=== PATIENT | male | born 1960 | race African-American/Black ===

== ENCOUNTER 2018-11-05 07:54 | Emergency (ER) | payer MEDICARE, MEDICAID ==
--- NOTE | 2018-11-05 09:19 | ER Document Report ---
Addendum entered and electronically signed by SON GLEASON PA-C 11/05/18 16:40: Course - Re-evaluation Re-evalutation: 11/05/18 16:39 Patient was signing up for discharge and when he sat up he became acutely short of breath and started panicking. I went to the room to assess him. And upon auscultation it did appear that he did have reduced air movement and some end expiratory wheezing. He has no known history of asthma but says a strong family history of such. I will give him a DuoNeb and see how he responds. - Vital Signs Vital signs: Temp Pulse Resp BP Pulse Ox 97.5 F 120 H 25 H 149/97 H 98 11/05/18 07:58 11/05/18 07:58 11/05/18 16:00 11/05/18 14:01 11/05/18 16:00 - Laboratory Result Diagrams: 11/05/18 10:08 11/05/18 10:08 Laboratory results interpreted by me: 11/05/18 11/05/18 10:08 10:08 RDW 18.9 H Creatinine 1.28 H Est GFR (Non-Af Amer) 58 L Glucose 117 H ALT 101 H Total Protein 6.2 L Addendum entered and electronically signed by SON GLEASON PA-C 11/05/18 15:25: Discharge - Discharge Clinical Impression: Flank pain, Kidney stone on left side, Throat tightness Chest pain Qualifiers: Chest pain type: unspecified Qualified Code(s): R07.9 - Chest pain, unspecified Condition: Good Disposition: HOME, SELF-CARE Additional Instructions: You are seen in the emergency department this afternoon for unspecified chest pain, throat tightness, and flank pain. Chest pain workup was completely negative for any cardiac concerns. Also, CTA of your chest did not show any evidence of a pulmonary embolism. We are still giving you a referral to cardiol binta and I would like you to follow-up with cardiology in the next 1-2 weeks. Also, it is unclear why you are having the throat tightness but it could be related to anxiety since you are having chest pain associated with it. Also, your flank and abdominal pain is most likely related to kidney stone that was identified on CT. You also may have passed a very small stone that did not get picked up. You can take Motrin 600 mg every 6 hours as needed and/or Tylenol 1000 mg every 6 hours for pain. If you develop severe unremitting chest pain, you start getting sweats or nausea with the chest pain, have severe intractable abdominal pain, pass out, or have any other concerns please merely return to the emergency department. Referrals: LIANG ESCAMILLA MD [ACTIVE STAFF] - Follow up as needed [facility] [Provider Group] - Follow up as needed KRYSTAL BARRETT MD [ACTIVE STAFF] - Follow up as needed Original Note: ED General - General Chief Complaint: Flank Pain Stated Complaint: SHORTNESS OF BREATH Time Seen by Provider: 11/05/18 08:26 Notes: 58-year-old male with history of a spinal injury causing bladder dysfunction with a bladder pump presents to the emergency department for shortness of breath described as "my throat is restricted "and left-sided flank pain that radiates around to his left abdomen and epigastric area. Patient denies shortness of breath but describes it as a tightness, denies chest pain, complains of abdominal pain, complains of night sweats, has abdominal spasms at baseline. Patient denies any recent illness, denies dizziness or lightheadedness, head ache, neck stiffness, rhinorrhea, new weakness, numbness or paresthesias, does complain of dark urine even though he is drinking a lot of water. No other complaints - HPI Patient complains to provider of: flank pain and "throat is restricted" - Related Data Allergies/Adverse Reactions: No Known Allergies Allergy (Verified 11/05/18 08:27) Past Medical History - Social History Smoking Status: Former Smoker Family History: None Patient has suicidal ideation: No Patient has homicidal ideation: No - Past Medical History Cardiac Medical History: Reports: Hx Hypercholesterolemia, Hx Hypertension Endocrine Medical History: Reports: Hx Diabetes Mellitus Type 2 Renal/ Medical History: Denies: Hx Peritoneal Dialysis Review of Systems - Review of Systems Constitutional: See HPI EENT: No symptoms reported Cardiovascular: See HPI Respiratory: See HPI Gastrointestinal: See HPI Genitourinary: See HPI Male Genitourinary: No symptoms reported Musculoskeletal: No symptoms reported Skin: No symptoms reported Hematologic/Lymphatic: No symptoms reported Neurological/Psychological: See HPI Physical Exam - Vital signs Vitals: Temp Pulse Resp BP Pulse Ox 97.5 F 120 H 16 138/83 H 95 11/05/18 07:58 11/05/18 07:58 11/05/18 07:58 11/05/18 07:58 11/05/18 07:58 - Notes Notes: PHYSICAL EXAMINATION: Reviewed vital signs and charting by RN GENERAL: Alert, interacts well. No acute distress. HEAD: Normocephalic, atraumatic. EYES: Pupils equal and round. Extraocular movements intact. ENT: Oral mucosa moist, tongue midline. NECK: Full range of motion. Supple. Trachea midline. LUNGS: Clear to auscultation bilaterally, no wheezes, rales, or rhonchi. No respiratory distress. HEART: Regular rate and rhythm. No murmur ABDOMEN: soft, non-tender. Non-distended. Bowel sounds present. no McBurney's point tenderness, no Love sign. EXTREMITIES: Moves all 4 extremities spontaneously. No edema, No cyanosis. Normal distal neurovascular exam BACK: L CVAT NEUROLOGIC: Oriented and appropriate. Normal speech. PSYCH: Normal affect, normal mood. SKIN: Warm, dry, normal turgor. No rashes or lesions noted. Course - Re-evaluation Re-evalutation: 11/05/18 11:30 CT done as patient said he had a history of kidney stone identified on MRI from previous injury. It did show a 3 mm nonobstructing stone in the left side which correlates with his pain. Nurse reported that he was having chest pain and it felt like it whenever his throat was closing up. On inspection there was no ev idence of obstruction or laryngeal edema. Nurse placed oxygen on him and patient states he felt much better after it was placed. He feels that he was having a panic attack. In the chest pain occurred when he was having the tight chest and it felt like his heart was "racing like I was running ". Initial troponin was slightly elevated and repeat troponin is ordered for 1300. 11/05/18 13:57 Delta troponin did peak and came down slightly. Discussed with Dr. Esdras Chaudhary. Because patient is tachycardic although patient states he always has a fast heart rate, with the slightly elevated troponin and patient's feeling of shortness of breath we will proceed with a CTA chest with IV contrast to ensure patient does not have a pulmonary embolism. 11/05/18 15:13 CTA chest negative for pulmonary embolism. Unclear why patient has a slightly elevated troponin, could be related to persistent and long-standing tachycardia. Patient has a negative chest pain workup. Patient is at this time will be referred to cardiology and is deemed stable and safe to discharge home. - Vital Signs Vital signs: Temp Pulse Resp BP Pulse Ox 97.5 F 120 H 17 160/97 H 96 11/05/18 07:58 11/05/18 07:58 11/05/18 14:00 11/05/18 13:30 11/05/18 14:00 - Laboratory Result Diagrams: 11/05/18 10:08 11/05/18 10:08 Laboratory results interpreted by me: 11/05/18 11/05/18 10:08 10:08 RDW 18.9 H Creatinine 1.28 H Est GFR (Non-Af Amer) 58 L Glucose 117 H ALT 101 H Total Protein 6.2 L Discharge - Discharge Clinical Impression: Flank pain, Kidney stone on left side, Throat tightness Chest pain Qualifiers: Chest pain type: unspecified Qualified Code(s): R07.9 - Chest pain, unspecified Condition: Good Disposition: HOME, SELF-CARE Additional Instructions: You are seen in the emergency department this afternoon for unspecified chest pain, throat tightness, and flank pain. Chest pain workup was completely negative for any cardiac concerns. Also, CTA of your chest did not show any evidence of a pulmonary embolism. We are still giving you a referral to cardiology and I would like you to follow-up with cardiology in the next 1-2 weeks. Also, it is unclear why you are having the throat tightness but it could be related to anxiety since you are having chest pain associated with it. Also, your flank and abdominal pain is most likely related to kidney stone that was identified on CT. You also may have passed a very small stone that did not get picked up. You can take Motrin 600 mg every 6 hours as needed and/or Tylenol 1000 mg every 6 hours for pain. If you develop severe unremitting chest pain, you start getting sweats or nausea with the chest pain, have severe intractable abdominal pain, pass out, or have any other concerns please merely return to the emergency department. Referrals: LIANG ESCAMILLA MD [ACTIVE STAFF] - Follow up as needed
--- NOTE | 2018-11-05 09:52 | RADIOLOGY REPORT (SQ) ---
EXAM DESCRIPTION: CT ABD/PELVIS NO ORAL OR IV COMPLETED DATE/TIME: 11/05/2018 9:33 am REASON FOR STUDY: L flank pain COMPARISON: None. TECHNIQUE: CT scan of the abdomen and pelvis performed without intravenous or oral contrast. Images reviewed with lung, soft tissue, and bone windows. Reconstructed coronal and sagittal MPR images revi ewed. All images stored on PACS. All CT scanners at this facility use dose modulation, iterative reconstruction, and/or weight based d osing when appropriate to reduce radiation dose to as low as reasonably achievable (ALARA). [facility]: Dose Right [facility]: CareDose [facility]: Dose Right [facility]: Teradose 4D [facility]: [email or web address] RADIATION DOSE: CT Rad equipment meets quality standard of care and radiation dose reduction techniq ues were employed. CTDIvol: 6.4 mGy. DLP: 336 mGy-cm.mGy. LIMITATIONS: None. FINDINGS: LOWER CHEST: No significant findings. No nodules or infiltrates. NON-CONTRASTED LIVER, SPLEEN, ADRENALS: Evaluation limited by lack of IV contrast. No identified sign ificant masses. PANCREAS: No masses. No peripancreatic inflammatory changes. GALLBLADDER: No identified stones by CT criteria. No inflammatory changes to suggest cholecystitis. RIGHT KIDNEY AND URETER: No suspicious masses. Assessment limited by lack of IV contrast. No signif icant calcifications. No hydronephrosis or hydroureter. LEFT KIDNEY AND URETER: No suspicious masses. Assessment limited by lack of IV contrast. 3 mm stone lower pole. No hydronephrosis or hydroureter. AORTA AND RETROPERITONEUM: No aneurysm. No retroperitoneal masses or adenopathy. BOWEL AND PERITONEAL CAVITY: No obvious masses or inflammatory changes. No free fluid. APPENDIX: Normal. PELVIS, BLADDER, AND ABDOMINAL WALL:No abnormal masses. No free fluid. Bladder normal. BONES: No significant findings. OTHER: No other significant finding. IMPRESSION: 3 mm nonobstructing left renal calculus. COMMENT: Quality ID # [id number]: Final reports with documentation of one or more dose reduction techniques (e.g., Automated exposure control, adjustment of the mA and/or kV according to patient size, use of iterative reconstruction technique) TECHNICAL DOCUMENTATION: JOB ID: [id number] [employer]- All Rights Reserved Reading location - IP/workstation name: [email or web address]
[2018-11-05 10:24] LABS: ABSOLUTE EOSINOPHILS # (AUTO) 0.2 10^3/uL (0.0-0.6); ABSOLUTE LYMPHOCYTES (AUTO) 1.7 10^3/uL (0.5-4.7); ABSOLUTE MONOCYTES (AUTO) 0.3 10^3/uL (0.1-1.4); BASOPHILS % (AUTO) 0.4 % (0-2); EOSINOPHILS % (AUTO) 3.3 % (0-6); HEMATOCRIT 44.6 % (37.9-51.0); HEMOGLOBIN 14.5 g/dL (13.5-17.0); LYMPHOCYTES % (AUTO) 32.8 % (13-45); MEAN CORPUSCULAR HGB CONC 32.4 g/dL (32.0-36.0); MEAN CORPUSCULAR VOLUME 83 fl (80-97); MONOCYTES % (AUTO) 6.7 % (3-13); PLATELET COUNT 221 10^3/uL (150-450); RED BLOOD COUNT 5.35 10^6/uL (4.35-5.55); RED CELL DISTRIBUTION WIDTH 18.9 % (11.5-14.0); SEGMENTED NEUTROPHILS % (AUTO) 56.8 % (42-78); TOTAL CELLS COUNTED % (AUTO) 100 %; WHITE BLOOD COUNT 5.2 10^3/uL (4.0-10.5)
[2018-11-05 10:37] LABS: ALANINE AMINOTRANSFERASE 101 U/L (21-72); ALBUMIN 3.8 g/dL (3.5-5.0); ALKALINE PHOSPHATASE 77 U/L (38-126); ANION GAP 7 (5-19); ASPARTATE AMINO TRANSFERASE 35 U/L (17-59); BILIRUBIN,DIRECT 0.3 mg/dL (0.0-0.4); BLOOD UREA NITROGEN 15 mg/dL (7-20); CALCIUM 8.9 mg/dL (8.4-10.2); CARBON DIOXIDE 26 mmol/L (22-30); CHLORIDE 107 mmol/L (98-107); GLUCOSE 117 mg/dL (75-110); POTASSIUM 4.6 mmol/L (3.6-5.0); SODIUM 140.2 mmol/L (137-145); TOTAL PROTEIN 6.2 g/dL (6.3-8.2)
--- NOTE | 2018-11-05 13:53 | ER Document Report ---
Doctor's Note Notes: I personally and independently obtained patient history and examined the patient in conjunction with the APC and agree with the assessment, treatment plan and disposition of the patient as recorded by the APC, and have reviewed the APC's note. HISTORY OF PRESENT ILLNESS: Patient is a 58-year-old male that presents to the emergency department for chief complaint of flank pain, shortness of breath, and sore throat. ROS: Constitutional: Negative for fever. Cardiovascular: Negative for chest pain. Respiratory: Positive for shortness of breath Gastrointestinal: Negative for vomiting, positive for right flank pain Musculoskeletal: Negative for arm, leg or back pain Skin: Negative for rash. Neurological: Negative for weakness or numbness. Other than noted above, the 12 point review of systems was reviewed with the patient and were negative, all pertinent findings are included in the HPI. PHYSICAL EXAMINATION: Vital signs reviewed, nursing noted reviewed. GENERAL: Well-appearing, well-nourished and in no acute distress. HEAD: Atraumatic, normocephalic. EYES: Eyes appear normal, conjunctiva are normal. ENT: nares patent, oropharynx clear without exudates. Moist mucous membranes. NECK: Normal range of motion, supple without lymphadenopathy LUNGS: Breath sounds clear to auscultation bilaterally and equal. No wheezes rales or rhonchi. HEART: Heart rate tachycardic, regular rhythm ABDOMEN: Soft, nontender, normoactive bowel sounds. No rebound, guarding, or rigidity. No masses appreciated. EXTREMITIES: Nontender, good range of motion, no pitting or edema. NEUROLOGICAL: No new focal neurological deficits, patient has baseline lower extremity weakness, from prior spinal cord injury, this is unchanged. PSYCH: Normal mood, normal affect. SKIN: Warm, Dry, normal turgor, no rashes or lesions noted on exposed skin MEDICAL DECISION MAKING: Patient seen and examined, vital signs reviewed, patient appeared well my exam, his lungs were clear, throat appeared clear as well, did not have any significant CVA tenderness. Workup was reviewed, decided to add CT angiogram of the chest, secondary to the patient's shortness of breath, and tachycardia, this was negative for PE, pending urine testing, his repeat troponin, down trended, and did not reach threshold of NSTEMI, is not complaining of chest pain at this time, would recommend outpatient follow-up for stress testing. Discussed follow-up with the patient which she agreed to. Patient was also complaining of occasional difficulty swallowing at times, not complaining of that at this time, advised him to follow-up with ENT regarding this. \ Please review detail APC documentation. *Note is created using voice recognition software and may contain spelling, syntax or grammatical errors. Laboratory 11/05/18 11/05/18 11/05/18 10:08 10:08 10:08 WBC 5.2 RBC 5.35 Hgb 14.5 Hct 44.6 MCV 83 MCH 27.0 MCHC 32.4 RDW 18.9 H Plt Count 221 Seg Neutrophils % 56.8 Lymphocytes % 32.8 Monocytes % 6.7 Eosinophils % 3.3 Basophils % 0.4 Absolute Neutrophils 3.0 Absolute Lymphocytes 1.7 Absolute Monocytes 0.3 Absolute Eosinophils 0.2 Absolute Basophils 0.0 Sodium 140.2 Potassium 4.6 Chloride 107 Carbon Dioxide 26 Anion Gap 7 BUN 15 Creatinine 1.28 H Est GFR ( Amer) > 60 Est GFR (Non-Af Amer) 58 L Glucose 117 H Calcium 8.9 Total Bilirubin 1.0 Direct Bilirubin 0.3 Neonat Total Bilirubin Not Reportable Neonat Direct Bilirubin Not Reportable Neonat Indirect Bili Not Reportable AST 35 ALT 101 H Alkaline Phosphatase 77 Troponin I 0.042 Total Protein 6.2 L Albumin 3.8 TSH 11/05/18 11/05/18 10:08 12:58 WBC RBC Hgb Hct MCV MCH MCHC RDW Plt Count Seg Neutrophils % Lymphocytes % Monocytes % Eosinophils % Basophils % Absolute Neutrophils Absolute Lymphocytes Absolute Monocytes Absolute Eosinophils Absolute Basophils Sodium Potassium Chloride Carbon Dioxide Anion Gap BUN Creatinine Est GFR ( Amer) Est GFR (Non-Af Amer) Glucose Calcium Total Bilirubin Direct Bilirubin Neonat Total Bilirubin Neonat Direct Bilirubin Neonat Indirect Bili AST ALT Alkaline Phosphatase Troponin I 0.039 Total Protein Albumin TSH 1.48 Abdomen/Pelvis CT 11/05/18 09:14 IMPRESSION: 3 mm nonobstructing left renal calculus. Chest/Abdomen CTA 11/05/18 13:53 IMPRESSION: There is no evidence of pulmonary emboli. There are pleural effusions as described. There is mild compressive atelectasis in the lower lobes.
[2018-11-05] MEDS ORDERED: NORMAL SALINE 1000 ML 1,000 ML IV ONE (13:57)
--- NOTE | 2018-11-05 15:13 | RADIOLOGY REPORT (SQ) ---
EXAM DESCRIPTION: CTA CHEST COMPLETED DATE/TIME: 11/05/2018 2:23 pm REASON FOR STUDY: chest pain, tachycardia COMPARISON: None. TECHNIQUE: CT scan of the chest performed using helical scanning technique with dynamic intravenous contrast injection. Images reviewed with lung, soft tissue and bone windows. Reconstructed coronal and sagittal MPR images reviewed. Additional 3 dimensional post-processing performed to develop Maximal Intensity Projection images (DC P). All images stored on PACS. All CT scanners at this facility use dose modulation, iterative reconstruction, and/or weight based d osing when appropriate to reduce radiation dose to as low as reasonably achievable (ALARA). [facility]: Dose Right [facility]: CareDose [facility]: Dose Right [facility]: Teradose 4D [facility]: [employer] CONTRAST TYPE AND DOSE: contrast/concentration: Isovue 350.00 mg/ml; Total Contrast Delivered: 74.0 ml; Total Saline Delivered: 110.0 ml Contrast bolus optimized for the pulmonary arteries. Not diagnostic for the aorta. RENAL FUNCTION: BUN 15 creatinine 1.28 RADIATION DOSE: CT Rad equipment meets quality standard of care and radiation dose reduction [employer] ues were employed. CTDIvol: 14.9 - 39.7 mGy. DLP: 578 mGy-cm. . LIMITATIONS: None. FINDINGS: LUNGS AND PLEURA: Small right pleural effusion. Minimal left pleural effusion. Mild asso ciated airspace disease in the lower lobes. AORTA AND GREAT VESSELS: No aneurysm. Contrast bolus not optimized for the aorta. HEART: No pericardial effusion. No significant coronary artery calcifications. PULMONARY ARTERIES: No emboli visualized in the main pulmonary arteries or the segmental branches. HILAR AND MEDIASTINAL STRUCTURES: No identified masses or abnormal nodes. HARDWARE: None in the chest. UPPER ABDOMEN: See separate report of the CT of the abdomen. THYROID AND OTHER SOFT TISSUES: No masses. No adenopathy. BONES: No acute or significant finding. 3D MIPS: Confirm above findings. OTHER: No other significant finding. IMPRESSION: There is no evidence of pulmonary emboli. There are pleural effusions as described. Th ere is mild compressive atelectasis in the lower lobes. COMMENT: Quality ID # [id number]: Final reports with documentation of one or more dose reduction techniques (e.g., Automated exposure control, adjustment of the mA and/or kV according to patient size, use of iterative reconstruction technique) TECHNICAL DOCUMENTATION: JOB ID: [id number] [employer]- All Rights Reserved Reading location - IP/workstation name: [email or web address]
[2018-11-05] MEDS ORDERED: IPRATROPIUM/ALBUTEROL 0.5-2.5 MG/3 ML AMPUL NEB ONE (16:40)
[2018-11-05 16:41] VITALS: BP 138/103
[2018-11-05] MEDS ORDERED: ALBUTEROL SULFATE HFA (90 MCG/PUFF) 8 GM MDI (1 MDI/ER DISP) IH ONE (17:18)
--- NOTE | 2018-11-05 23:55 | EKG REPORT ---
SEVERITY:- ABNORMAL ECG - SINUS TACHYCARDIA PROBABLE LEFT ATRIAL ABNORMALITY LEFT AXIS DEVIATION LEFT VENTRICULAR HYPERTROPHY : Confirmed by: Sherine Johns 05-Nov-2018 23:54:57
== END 2018-11-05 17:42 | disposition home or self-care (01) ==
LOC: ER 07:54
DX: N20.0 Calculus of kidney (principal); J02.9 Acute pharyngitis, unspecified; R09.89 Other specified symptoms and signs involving the circulatory and respiratory systems; R10.9 Unspecified abdominal pain; R06.02 Shortness of breath; R06.2 Wheezing; R07.9 Chest pain, unspecified
CPT/HCPCS: 93005; 94640; 99284; 96360; 36415; 84443; 85025; 80053; 84484; 71275; 74176; 93010; J7030; J3490; A9270; J7620

== ENCOUNTER 2019-02-16 08:05 | Emergency (ER) | payer MEDICARE, MEDICAID ==
--- NOTE | 2019-02-16 08:14 | ER Document Report ---
HPI - HPI Patient complains to provider of: right testicular pain/swelling, uti Time Seen by Provider: 02/16/19 08:13 Onset/Duration: Gradual Severity: Moderate Context: 59 Yr old male pt with the listed pmh, here for intermittent left-sided abdominal pain, right testicular pain/swelling, and dysuria for x 7 days. no trauma or injury. Patient is a diabetic however states that sugars are well controlled. He does have a history of renal stones however has been asymptomatic from them. The patient is also wheelchair-bound secondary to a spinal cord injury at baseline. He states he is not sexually active secondary to this and has no concerns for STDs. normal bms. no other uti sx. no left sided testicular pain/swelling, penile dc/rash/lesions. denies hx of hernias. no abd surgeries unless otherwise noted. no recent abx or steroids. hasn't taken anything for sx. no hx of gerd, gb dz, pancreatitis, gi bleed, ulcers, ibs, or crohns. no hx of this before. no uri sx. no rash. pain not worse with eating. denies changes in color or caliber of stool. no other associated sx. - ROS Systems Reviewed and Negative: Yes All other systems reviewed and negative - to include 10, unless mentioned in the hpi Past Medical History - General Information source: Patient - Social History Smoking Status: Unknown if Ever Smoked Frequency of alcohol use: unknown Drug Abuse: Other - unknown Family History: None - Past Medical History Cardiac Medical History: Reports: Hx Hypercholesterolemia, Hx Hypertension Neurological Medical History: Reports: Other - paraplegia-pt wheel chair bound at baseline secondary to a spinal cord inju Endocrine Medical History: Reports: Hx Diabetes Mellitus Type 2 Renal/ Medical History: Reports: Hx Kidney Stones. Denies: Hx Peritoneal Dialysis Vertical Provider Document - CONSTITUTIONAL Notes: >>>> PHYSICAL_EXAM: GENERAL_APPEARANCE: well_nourished, alert, cooperative, no_acute_distress, no obvious_discomfort. Pleasant, middle aged black male, smiling, speaking in full sentences, easily sitting up, in no sign of pain or resp distress, nontoxic, pt in wheel chair. VITALS: reviewed, see vital signs table. HEAD: normocephalic. atraumatic. no leroy signs. no raccoon eyes. EYES: PERRL, EOMI, (-)scleral icterus. NOSE: no_nasal_discharge. MOUTH: (-)decreased moisture. THROAT: no_tonsilar_inflammation/hypertrophy/exudate. no lymphadenopathy NECK: supple, no_neck_tenderness, full rom. full strength. no meningeal signs. BACK: no_back_tenderness. CHEST_WALL: no_chest_tenderness. LUNGS: no_wheezing, (-)accessory muscle use, good air exchange bilateral. HEART: normal_rate, normal_rhythm,, ABDOMEN: normal_BS, soft, abdomen-diffuse, mild ttp of the luq and llq (- )guarding, (-)rebound, no distension or peritoneal signs. neg murphys. neg mcburneys. no cva tenderness GENITALS: no_testicular_tenderness/swelling on the left. the right testicle is diffusely swollen and ttp, no sign of abscess, no_urethral_discharge, no_inguinal_hernia, no_ulcers_or_lesions on the genitals, no_lacerations on the genitals, the pt is wearing a diaper, he is uncircumsized. there is some scant urine around the glans once the foreskin was retracted with mild odor. no sign of yeast infection, no phymosis or paraphymosis, penis and testicles otherwise wnl. exam chaperoned by ed nurse. pt consented to exam. exam without incident. exam is somewhat limited secondary to pt being a paraplegic. exam done with pt laying down. not able to assess for prehn or cremasteric reflex secondary to this. RECTAL: deferred EXTREMITIES: strength 5/5 in upper_extremities bilat, 0/5 strength in bilat lower extremities which is his baseline along which chronic unchanged atrophy of the bilat lower extremities, good pulses in all_extremities, no_edema, no_swelling\tenderness. full rom. gait not assessed as pt wheel chair bound at baseline brisk cap refill. 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 SKIN: warm, dry, good_color, n _rash. no grossly visible overlying skin changes to suggest trauma unless otherwise noted. NEURO: motor_intact, sensory_intact. cranial nerves 2-12 intact, MENTAL_STATUS: normal_affect, speech_clear, oriented_X_3, responds_appropriately to questions. - INFECTION CONTROL TRAVEL OUTSIDE OF THE [place] IN LAST 30 DAYS: No Course - Re-evaluation Re-evalutation: 02/16/19 08:44 Patient here for intermittent left-sided abdominal pain, right testicular pain/swelling, and dysuria for a week. no concerns for stds. he is a paraplegic and states he isn't sexually active. labs were notable for a mild leukocytosis, slight increase in creat which is now 1.3 from 1.28 a few months ago, and a uti. ucx pending. he responded well to fluids and rocephin here and his slight tachycardia and low grade fever resolved. testicular us w doppler done to r/o torsion just showed a large right hydrocele but was otherwise neg for anything acute per rad and reviewed by myself. ct stone survey done to r/o infected stone and that just showed a 3mm nonobstructing left renal stone and was otherwise neg for anything acute per rad and reviewed by myself. pt informed of his findings. advised to drink plenty of fluids. take the meds as prescribed. will dc with doxy. advised scrotal support. f/u with urology in 1-2 days. return for any worsening symptoms. advised to keep a close check on his sugars during an acute infection. vss. pt well appearing. non toxic. tolerating po. serial abd exams remain benign. 02/16/19 08:45 On reexam, pt improved with tx listed. remained stable. nontoxic. well appearing. pain controlled. tolerating po. requesting to go home. case discussed with ER Attending, Dr. soler, who directed and agrees with plan of care and advised no further workup indicated at this time and pt is stable for dc home with close f/u with urologist Documentation achieved through voice recording which my lead to some occasional accidental typographical errors. Extensive efforts have been made to proof read documentation to make sure these are the least as possible. 02/16/19 11:12 Category Date Time Status Accucheck (ED) NOW Care 02/16/19 09:27 Completed PCT AccuChek Documentation NOW Care 02/16/19 09:28 Active Vital Signs (ED) NOW Care 02/16/19 09:[address] ABD/PELVIS NO ORAL OR IV [CT] Stat Exams 02/16/19 09:30 Completed Testicular [U/S SCROTUM W/DOPPLER] [US] Stat Exams 02/16/19 08:14 Completed CBC WITH DIFF [HEME] Stat Lab 02/16/19 09:44 Completed CMP [COMPREHENSIVE METABOLIC PANEL] [CHEM] Stat Lab 02/16/19 09:44 Completed LIPASE [CHEM] Stat Lab 02/16/19 09:44 Completed URINALYSIS [URIN] Stat Lab 02/16/19 08:29 Completed URINE CULTURE [MC] Stat Lab 02/16/19 08:29 Received Ceftriaxone 1 gm/D5w RTU [Rocephin RTU 1 gm/D5w 50 ml Med 02/16/19 09:28 Discontinued Premix] 1 gm in 50 ml IV NOW Normal Saline 1000 ml [NaCl 0.9% 1000 ml IV Soln] 1,000 Med 02/16/19 09:29 Discontinued ml IV BOLUS - Vital Signs Vital signs: Temp Pulse Resp BP Pulse Ox 99.2 F 120 H 16 123/70 96 02/16/19 08:13 02/16/19 08:13 02/16/19 08:13 02/16/19 08:13 02/16/19 08:13 02/16/19 11:24 Temp Pulse Resp BP Pulse Ox 02/16/19 10:01 98.7 F 116 H 16 110/74 96 02/16/19 08:13 99.2 F 120 H 16 123/70 96 - Laboratory Result Diagrams: 02/16/19 09:44 02/16/19 09:44 Laboratory results interpreted by me: 02/16/19 11:24 Labs- Entire Visit 02/16/19 02/16/19 02/16/19 08:29 09:41 09:44 WBC 12.4 H RBC 5.08 Hgb 12.8 L Hct 40.3 MCV 79 L MCH 25.2 L MCHC 31.7 L RDW 17.3 H Plt Count 237 Seg Neutrophils % 76.1 Lymphocytes % 13.6 Monocytes % 9.2 Eosinophils % 0.6 Basophils % 0.5 Absolute Neutrophils 9.4 H Absolute Lymphocytes 1.7 Absolute Monocytes 1.1 Absolute Eosinophils 0.1 Absolute Basophils 0.1 Sodium Potassium Chloride Carbon Dioxide Anion Gap BUN Creatinine Est GFR ( Amer) Est GFR (Non-Af Amer) Glucose POC Glucose 102 Calcium Total Bilirubin Direct Bilirubin Neonat Total Bilirubin Neonat Direct Bilirubin Neonat Indirect Bili AST ALT Alkaline Phosphatase Total Protein Albumin Lipase Urine Color JEREMIAH Urine Appearance CLOUDY Urine pH 5.0 Ur Specific [place] 1.019 Urine Protein 30 H Urine Glucose (UA) NEGATIVE Urine Ketones TRACE H Urine Blood SMALL H Urine Nitrite NEGATIVE Urine Bilirubin SMALL H Urine Urobilinogen 4.0 H Ur Leukocyte Esterase LARGE H Urine WBC (Auto) >182 Urine RBC (Auto) 2 Urine Bacteria (Auto) 3+ Urine WBC Clumps RARE Squamous Epi Cells Auto 2 Urine Mucus (Auto) OCC Urine Ascorbic Acid NEGATIVE 02/16/19 09:44 WBC RBC Hgb Hct MCV MCH MCHC RDW Plt Count Seg Neutrophils % Lymphocytes % Monocytes % Eosinophils % Basophils % Absolute Neutrophils Absolute Lymphocytes Absolute Monocytes Absolute Eosinophils Absolute Basophils Sodium 136.6 L Potassium 4.2 Chloride 107 Carbon Dioxide 24 Anion Gap 6 BUN 19 Creatinine 1.30 H Est GFR ( Amer) > 60 Est GFR (Non-Af Amer) 57 L Glucose 91 POC Glucose Calcium 8.6 Total Bilirubin 2.2 H Direct Bilirubin 0.6 H Neonat Total Bilirubin Not Reportable Neonat Direct Bilirubin Not Reportable Neonat Indirect Bili Not Reportable AST 18 ALT 33 Alkaline Phosphatase 78 Total Protein 6.1 L Albumin 3.3 L Lipase 36.9 Urine Color Urine Appearance Urine pH Ur Specific [place] Urine Protein Urine Glucose (UA) Urine Ketones Urine Blood Urine Nitrite Urine Bilirubin Urine Urobilinogen Ur Leukocyte Esterase Urine WBC (Auto) Urine RBC (Auto) Urine Bacteria (Auto) Urine WBC Clumps Squamous Epi Cells Auto Urine Mucus (Auto) Urine Ascorbic Acid - Diagnostic Test Radiology reviewed: Image reviewed, Reports reviewed Radiology results interpreted by me: 02/16/19 11:24 Scrotum Ultrasound 02/16/19 08:14 IMPRESSION: LARGE RIGHT HYDROCELE. OTHERWISE UNREMARKABLE SCROTAL ULTRASOUND. NO EVIDENCE OF TESTICULAR MASS OR TORSION. Abdomen/Pelvis CT 02/16/19 09:30 IMPRESSION: 1. 3 MM NONOBSTRUCTING CALYCEAL CALCULUS IN THE LEFT KIDNEY. NO URETERAL CALCULI. 2. POSSIBLE BILATERAL HYDROCELES, NOT COMPLETELY IMAGED. 3. NO OTHER SIGNIFICANT OR ACUTE PROCESS IN THE ABDOMEN OR PELVIS. Discharge - Discharge Clinical Impression: Renal stone, Hydrocele, right UTI (urinary tract infection) Qualifiers: Urinary tract infection type: site unspecified Hematuria presence: with hematuria Qualified Code(s): N39.0 - Urinary tract infection, site not specified; R31.9 - Hematuria, unspecified Condition: Good Disposition: HOME, SELF-CARE Instructions: Urinary Tract Infection ([facility]) Additional Instructions: Follow-up with PCP/urology 1 to 2 days. Return for any worsening symptoms. take the medication as prescribed. Drink plenty of water. Keep a close check on your blood sugars during acute infection. Scrotal support as discussed. Follow-up with urology without fail closely. We will call you with any abnormal culture results require change in plan of care. Prescriptions: Doxycycline Hyclate 100 mg PO BID #14 capsule
[2019-02-16 08:49] LABS: APPEARANCE,URINE CLOUDY; BILIRUBIN,URINE SMALL (NEGATIVE); COLOR,URINE AMBER; GLUCOSE, URINE NEGATIVE (NEGATIVE); KETONES,URINE TRACE mg/dL (NEGATIVE); LEUKOCYTE ESTERASE,URINE LARGE (NEGATIVE); NITRITE,URINE NEGATIVE (NEGATIVE); PROTEIN,URINE 30 mg/dL (NEGATIVE); URINE SPECIFIC GRAVITY 1.019
--- NOTE | 2019-02-16 09:06 | RADIOLOGY REPORT (SQ) ---
EXAM DESCRIPTION: U/S SCROTUM W/DOPPLER COMPLETED DATE/TIME: 02/16/2019 8:49 am REASON FOR STUDY: right testicular pain/swelling COMPARISON: None. TECHNIQUE: Static and realtime cramer scale imaging of the scrotum and testes. Selected color Doppler and spectral images recorded to document blood flow. LIMITATIONS: None. FINDINGS: RIGHT: TESTICLE: Normal size. Normal echotexture. Normal blood flow. No mass. EPIDIDYMIS: Normal. HYDROCELE OR VARICOCELE: Large hydrocele. HERNIA OR EXTRA-TESTICULAR MASS: No. OTHER: No other significant finding. LEFT: TESTICLE: Normal size. Normal echotexture. Normal blood flow. No mass. EPIDIDYMIS: Normal. HYDROCELE OR VARICOCELE: No. HERNIA OR EXTRA-TESTICULAR MASS: No. OTHER: No other significant finding. IMPRESSION: LARGE RIGHT HYDROCELE. OTHERWISE UNREMARKABLE SCROTAL ULTRASOUND. NO EVIDENCE OF TESTIC ULAR MASS OR TORSION. TECHNICAL DOCUMENTATION: JOB ID: [id number] [employer]- All Rights Reserved Reading location - IP/workstation name: [email or web address]
[2019-02-16] MEDS ORDERED: CEFTRIAXONE 1 GM/D5W RTU 1 GM/50 ML RTUPB IV ONE (09:28)
[2019-02-16] MEDS ORDERED: NORMAL SALINE 1000 ML 1,000 ML IV ONE (09:29)
[2019-02-16 10:07] LABS: ABSOLUTE BASOPHILS # (AUTO) 0.1 10^3/uL (0.0-0.2); ABSOLUTE EOSINOPHILS # (AUTO) 0.1 10^3/uL (0.0-0.6); ABSOLUTE LYMPHOCYTES (AUTO) 1.7 10^3/uL (0.5-4.7); ABSOLUTE MONOCYTES (AUTO) 1.1 10^3/uL (0.1-1.4); ABSOLUTE NEUT (AUTO) 9.4 10^3/uL (1.7-8.2); BASOPHILS % (AUTO) 0.5 % (0-2); EOSINOPHILS % (AUTO) 0.6 % (0-6); HEMATOCRIT 40.3 % (37.9-51.0); HEMOGLOBIN 12.8 g/dL (13.5-17.0); LYMPHOCYTES % (AUTO) 13.6 % (13-45); MEAN CORPUSCULAR HEMOGLOBIN 25.2 pg (27.0-33.4); MEAN CORPUSCULAR HGB CONC 31.7 g/dL (32.0-36.0); MEAN CORPUSCULAR VOLUME 79 fl (80-97); MONOCYTES % (AUTO) 9.2 % (3-13); PLATELET COUNT 237 10^3/uL (150-450); RED BLOOD COUNT 5.08 10^6/uL (4.35-5.55); RED CELL DISTRIBUTION WIDTH 17.3 % (11.5-14.0); SEGMENTED NEUTROPHILS % (AUTO) 76.1 % (42-78); TOTAL CELLS COUNTED % (AUTO) 100 %; WHITE BLOOD COUNT 12.4 10^3/uL (4.0-10.5)
[2019-02-16 10:25] LABS: ALANINE AMINOTRANSFERASE 33 U/L (21-72); ALBUMIN 3.3 g/dL (3.5-5.0); ALKALINE PHOSPHATASE 78 U/L (38-126); ANION GAP 6 (5-19); ASPARTATE AMINO TRANSFERASE 18 U/L (17-59); BILIRUBIN,DIRECT 0.6 mg/dL (0.0-0.4); BILIRUBIN,TOTAL 2.2 mg/dL (0.2-1.3); BLOOD UREA NITROGEN 19 mg/dL (7-20); CALCIUM 8.6 mg/dL (8.4-10.2); CARBON DIOXIDE 24 mmol/L (22-30); CHLORIDE 107 mmol/L (98-107); GLUCOSE 91 mg/dL (75-110); LIPASE 36.9 U/L (23-300); POTASSIUM 4.2 mmol/L (3.6-5.0); SODIUM 136.6 mmol/L (137-145); TOTAL PROTEIN 6.1 g/dL (6.3-8.2)
--- NOTE | 2019-02-16 10:52 | RADIOLOGY REPORT (SQ) ---
EXAM DESCRIPTION: CT ABD/PELVIS NO ORAL OR IV COMPLETED DATE/TIME: 02/16/2019 10:31 am REASON FOR STUDY: uti sx, left renal stone, COMPARISON: 11/05/2018. TECHNIQUE: CT scan of the abdomen and pelvis performed without intravenous or oral contrast. Images reviewed with lung, soft tissue, and bone windows. Reconstructed coronal and sagittal MPR images revi ewed. All images stored on PACS. All CT scanners at this facility use dose modulation, iterative reconstruction, and/or weight based d osing when appropriate to reduce radiation dose to as low as reasonably achievable (ALARA). [facility]: Dose Right [facility]: CareDose [facility]: Dose Right [facility]: Teradose 4D [facility]: Smart [employer] RADIATION DOSE: CT Rad equipment meets quality standard of care and radiation dose reduction techniq ues were employed. CTDIvol: 6.0 mGy. DLP: 312 mGy-cm.mGy. LIMITATIONS: None. FINDINGS: LOWER CHEST: No significant findings. No nodules or infiltrates. NON-CONTRASTED LIVER, SPLEEN, ADRENALS: Evaluation limited by lack of IV contrast. No identified sign ificant masses. PANCREAS: No masses. No peripancreatic inflammatory changes. GALLBLADDER: No identified stones by CT criteria. No inflammatory changes to suggest cholecystitis. RIGHT KIDNEY AND URETER: No suspicious masses. Assessment limited by lack of IV contrast. No signif icant calcifications. No hydronephrosis or hydroureter. LEFT KIDNEY AND URETER: No suspicious masses. Assessment limited by lack of IV contrast. 3 mm calyc eal calculus. No hydronephrosis or hydroureter. AORTA AND RETROPERITONEUM: No aneurysm. No retroperitoneal masses or adenopathy. BOWEL AND PERITONEAL CAVITY: No obvious masses or inflammatory changes. No free fluid. APPENDIX: Normal. PELVIS, BLADDER, AND ABDOMINAL WALL:No abnormal masses. No free fluid. Bladder normal. Possible bila teral hydroceles, not completely imaged. BONES: No significant findings. OTHER: No other significant finding. IMPRESSION: 1. 3 MM NONOBSTRUCTING CALYCEAL CALCULUS IN THE LEFT KIDNEY. NO URETERAL CALCULI. 2. POSSIBLE BILATERAL HYDROCELES, NOT COMPLETELY IMAGED. 3. NO OTHER SIGNIFICANT OR ACUTE PROCESS IN THE ABDOMEN OR PELVIS. COMMENT: Quality ID # [id number]: Final reports with documentation of one or more dose reduction techniques (e.g., Automated exposure control, adjustment of the mA and/or kV according to patient size, use of iterative reconstruction technique) TECHNICAL DOCUMENTATION: JOB ID: [id number] [employer]- All Rights Reserved Reading location - IP/workstation name: [email or web address]
[2019-02-16 11:38] VITALS: BP 122/87
== END 2019-02-16 11:49 | disposition home or self-care (01) ==
LOC: ER 08:05
DX: N39.0 Urinary tract infection, site not specified (principal); R31.9 Hematuria, unspecified; N43.3 Hydrocele, unspecified; N20.0 Calculus of kidney; N50.811 Right testicular pain; R10.9 Unspecified abdominal pain; E11.9 Type 2 diabetes mellitus without complications; I10 Essential (primary) hypertension; D72.829 Elevated white blood cell count, unspecified; R00.0 Tachycardia, unspecified; R50.9 Fever, unspecified
CPT/HCPCS: 99284; 96365; 36415; 87086; 82962; 83690; 85025; 87088; 80053; 81001; 87186; 76870; 93976; 74176; J7030; J0696

== ENCOUNTER 2019-04-01 13:38 | Inpatient (IN) | payer MEDICARE, MEDICAID ==
--- NOTE | 2019-04-01 14:12 | ER Document Report ---
ED Medical Screen (RME) - General Chief Complaint: Leg Swelling Stated Complaint: LEG PAIN/SWELLING Time Seen by Provider: 04/01/19 14:11 Primary Care Provider: HUGO TIDWELL MD [Primary Care Provider] - Follow up as needed Mode of Arrival: Ambulatory Information source: Patient Notes: 59-year-old male presented to ED for complaint of swelling from the waist down. He states this started on Sunday. He states he is a spinal cord injury patient and has been for a while but Sunday he started with the swelling and now was up past his waist. He states he do feel tight and swollen. He is not having any chest pain. He is alert oriented respirations regular nonlabored speaking in full sentences. I have greeted and performed a rapid initial assessment of this patient. A comprehensive ED assessment and evaluation of the patient, analysis of test results and completion of medical decision making process will be conducted by an additional ED providers. TRAVEL OUTSIDE OF THE [place] IN LAST 30 DAYS: No - Related Data Allergies/Adverse Reactions: No Known Allergies Allergy (Verified 02/16/19 08:06) Past Medical History - Past Medical History Cardiac Medical History: Reports: Hx Hypercholesterolemia, Hx Hypertension Endocrine Medical History: Reports: Hx Diabetes Mellitus Type 2 Renal/ Medical History: Reports: Hx Kidney Stones. Denies: Hx Peritoneal Dialysis Doctor's Discharge - Discharge Referrals: HUGO TIDWELL MD [Primary Care Provider] - Follow up as needed
[2019-04-01 15:18] LABS: ABSOLUTE BASOPHILS # (AUTO) 0.1 10^3/uL (0.0-0.2); ABSOLUTE EOSINOPHILS # (AUTO) 0.1 10^3/uL (0.0-0.6); ABSOLUTE LYMPHOCYTES (AUTO) 1.9 10^3/uL (0.5-4.7); ABSOLUTE MONOCYTES (AUTO) 0.8 10^3/uL (0.1-1.4); ABSOLUTE NEUT (AUTO) 4.2 10^3/uL (1.7-8.2); BASOPHILS % (AUTO) 1.3 % (0-2); EOSINOPHILS % (AUTO) 0.8 % (0-6); HEMATOCRIT 38.4 % (37.9-51.0); LYMPHOCYTES % (AUTO) 26.7 % (13-45); MEAN CORPUSCULAR HEMOGLOBIN 24.2 pg (27.0-33.4); MEAN CORPUSCULAR HGB CONC 31.3 g/dL (32.0-36.0); MEAN CORPUSCULAR VOLUME 77 fl (80-97); PLATELET COUNT 247 10^3/uL (150-450); RED BLOOD COUNT 4.97 10^6/uL (4.35-5.55); RED CELL DISTRIBUTION WIDTH 18.5 % (11.5-14.0); SEGMENTED NEUTROPHILS % (AUTO) 60.2 % (42-78); TOTAL CELLS COUNTED % (AUTO) 100 %; WHITE BLOOD COUNT 7.1 10^3/uL (4.0-10.5)
[2019-04-01 15:33] LABS: ALBUMIN 3.8 g/dL (3.5-5.0); ALKALINE PHOSPHATASE 136 U/L (38-126); ANION GAP 10 (5-19); ASPARTATE AMINO TRANSFERASE 38 U/L (17-59); BILIRUBIN,DIRECT 1.4 mg/dL (0.0-0.4); BILIRUBIN,TOTAL 2.6 mg/dL (0.2-1.3); BLOOD UREA NITROGEN 25 mg/dL (7-20); CALCIUM 9.4 mg/dL (8.4-10.2); CARBON DIOXIDE 25 mmol/L (22-30); CHLORIDE 103 mmol/L (98-107); CREATINE KINASE 287 U/L (55-170); GLUCOSE 113 mg/dL (75-110); POTASSIUM 4.7 mmol/L (3.6-5.0); TOTAL PROTEIN 6.9 g/dL (6.3-8.2)
[2019-04-01] MEDS ORDERED: FUROSEMIDE INJ/PF 40 MG/4 ML SDV IV ONE (15:44)
--- NOTE | 2019-04-01 15:44 | ER Document Report ---
ED General - General Chief Complaint: Leg Swelling Stated Complaint: LEG PAIN/SWELLING Time Seen by Provider: 04/01/19 14:11 Mode of Arrival: Ambulatory TRAVEL OUTSIDE OF THE [place] IN LAST 30 DAYS: No - HPI Notes: Patient is a 59-year-old male that presents to the emergency department for chief complaint of lower extremity edema. Patient reports edema starting in his feet and spreading up to his waist that began 8 days ago. He states 7 days ago he saw his primary care doctor at [facility] who started him on Lasix 40 mg daily. They ordered an outpatient echo which he has scheduled but has not had performed yet. Patient states the edema has continued to increase. He now reports decreased urination and dark urination. Patient has a history of spinal cord injury and is wheelchair bound at baseline. He denies any difficulty breathing, chest pain or palpitations. He denies history of VA or CHF in the past. Patient states his lower extremities do ache and hurt and feel like a throbbing pressure. Past Medical History: Spinal cord injury Past Surgical History: Reviewed in chart Social History: Smoking 3 months ago. Denies alcohol or drug use Family History: Reviewed and noncontributory for presenting illness Allergies: Reviewed, see documented allergy list. REVIEW OF SYSTEMS: CONSTITUTIONAL : No fever No chills No diaphoresis No recent illness EENT: No vision changes No congestion No sore throat CARDIOVASCULAR: No chest pain No palpitations Leg edema RESPIRATORY: No shortness of breath No cough No difficulty breathing GASTROINTESTINAL: No abdominal pain No nausea No vomiting No diarrhea GENITOURINARY: No dysuria No hematuria No difficulty urinating MUSCULOSKELETAL: No back pain leg pain No arm pain SKIN: No rashes No lesions LYMPHATIC: No swollen, enlarged glands. NEUROLOGICAL: No lightheadedness No headache No weakness No paresthesias PSYCHIATRIC: No anxiety No depression PHYSICAL EXAMINATION: Vital signs reviewed, nursing noted reviewed. GENERAL: Well-appearing, well-nourished and in no acute distress. HEAD: Atraumatic, normocephalic. EYES: Eyes appear normal, extraocular movements intact, sclera anicteric, conjunctiva are normal. ENT: nares patent, oropharynx clear without exudates. Moist mucous membranes. NECK: Normal range of motion, supple without lymphadenopathy LUNGS: Breath sounds clear to auscultation bilaterally and equal. No wheezes rales or rhonchi. HEART: Regular rate and rhythm without murmurs ABDOMEN: Soft, nontender, normoactive bowel sounds. No rebound, guarding, or rigidity. No masses appreciated. EXTREMITIES: +2 pitting edema bilateral lower extremities symmetric extending proximally to patient's waist. Left lower extremity externally rotated and in flexion contracture. Bilateral legs tender to palpation diffusely. NEUROLOGICAL: Bilateral lower extremity 4/5 strength with flexion contracture of left leg. Normal sensation. Patient alert and oriented x3 PSYCH: Normal mood, normal affect. SKIN: Warm, Dry, normal turgor, no rashes or lesions noted on exposed skin - Related Data Allergies/Adverse Reactions: No Known Allergies Allergy (Verified 02/16/19 08:06) Past Medical History - General Information source: Patient - Social History Smoking Status: Unknown if Ever Smoked Family History: None Patient has suicidal ideation: No Patient has homicidal ideation: No - Past Medical History Cardiac Medical History: Reports: Hx Hypercholesterolemia, Hx Hypertension Endocrine Medical History: Reports: Hx Diabetes Mellitus Type 2 Renal/ Medical History: Reports: Hx Kidney Stones. Denies: Hx Peritoneal Dialysis Physical Exam - Vital signs Vitals: Pulse Resp BP 111 H 22 H 123/85 04/01/19 13:52 04/01/19 13:52 04/01/19 13:52 Course - Re-evaluation Re-evalutation: 04/01/19 15:43 Vitals reviewed. No signs reviewed. Patient is alert and in no acute distress. He reports no respiratory symptoms to me. He is currently oxygenating at 96% on room air. 04/01/19 16:46 Patient had an episode where he started to feel some shortness of breath. He s tates that it feels like the fluid in his abdomen is shifted and made it more difficult to breathe. This episode lasted for 2 to 3 minutes and then patient states he felt fine again. He was not hypoxic and was respirating on room air during this. Repeat EKG shows no change from initial. Patient's lab work shows a elevated creatinine likely because of his new prescription of Lasix. The remainder of his blood work is unremarkable. His x-ray shows atelectasis versus pneumonia with a small pleural effusion. Patient has no leukocytosis, cough or congestion to suggest this is an underlying pneumonia and it is more likely atelectasis from his poor mobility. I do not feel antibiotics are indicated at this point in time. Patient was given a dose of Lasix IV. He ultrasound has been ordered to evaluate for underlying DVT and is still pending. Laboratory 04/01/19 04/01/19 04/01/19 14:30 14:30 14:30 WBC 7.1 RBC 4.97 Hgb 12.0 L Hct 38.4 MCV 77 L MCH 24.2 L MCHC 31.3 L RDW 18.5 H Plt Count 247 Lymph % (Auto) 26.7 Wells % (Auto) 11.0 Eos % (Auto) 0.8 Baso % (Auto) 1.3 Absolute Neuts (auto) 4.2 Absolute Lymphs (auto) 1.9 Absolute Monos (auto) 0.8 Absolute Eos (auto) 0.1 Absolute Basos (auto) 0.1 Seg Neutrophils % 60.2 Sodium 138.2 Potassium 4.7 Chloride 103 Carbon Dioxide 25 Anion Gap 10 BUN 25 H Creatinine 1.48 H Est GFR ( Amer) 59 L Est GFR (MDRD) Non-Af 49 L Glucose 113 H Calcium 9.4 Total Bilirubin 2.6 H Direct Bilirubin 1.4 H Neonat Total Bilirubin Not Reportable Neonat Direct Bilirubin Not Reportable Neonat Indirect Bili Not Reportable AST 38 ALT 37 Alkaline Phosphatase 136 H Creatine Kinase 287 H CK-MB (CK-2) 3.56 Total Protein 6.9 Albumin 3.8 Lipase 38.1 Urine Color Urine Appearance Urine pH Ur Specific Anton Urine Protein Urine Glucose (UA) Urine Ketones Urine Blood Urine Nitrite Urine Bilirubin Urine Urobilinogen Ur Leukocyte Esterase Urine WBC (Auto) Urine RBC (Auto) U Hyaline Cast (Auto) Squamous Epi Cells Auto Urine Mucus (Auto) Urine Ascorbic Acid 04/01/19 16:11 WBC RBC Hgb Hct MCV MCH MCHC RDW Plt Count Lymph % (Auto) Wells % (Auto) Eos % (Auto) Baso % (Auto) Absolute Neuts (auto) Absolute Lymphs (auto) Absolute Monos (auto) Absolute Eos (auto) Absolute Basos (auto) Seg Neutrophils % Sodium Potassium Chloride Carbon Dioxide Anion Gap BUN Creatinine Est GFR ( Amer) Est GFR (MDRD) Non-Af Glucose Calcium Total Bilirubin Direct Bilirubin Neonat Total Bilirubin Neonat Direct Bilirubin Neonat Indirect Bili AST ALT Alkaline Phosphatase Creatine Kinase CK-MB (CK-2) Total Protein Albumin Lipase Urine Color JEREMIAH Urine Appearance SLIGHTLY-CLOUDY Urine pH 5.0 Ur Specific Anton 1.026 Urine Protein 30 H Urine Glucose (UA) NEGATIVE Urine Ketones NEGATIVE Urine Blood NEGATIVE Urine Nitrite NEGATIVE Urine Bilirubin SMALL H Urine Urobilinogen 4.0 H Ur Leukocyte Esterase NEGATIVE Urine WBC (Auto) 2 Urine RBC (Auto) 0 U Hyaline Cast (Auto) 10 Squamous Epi Cells Auto 1 Urine Mucus (Auto) RARE Urine Ascorbic Acid NEGATIVE Chest X-Ray 04/01/19 00:00 IMPRESSION: Small right pleural effusion with right lower lobe infiltrate either atelectasis or pneumonia. 04/01/19 19:28 After receiving Lasix patient has had minimal urine output. He has began to feel more short of breath while in the emergency department. Venous Doppler negative for acute DVT. I am not clinically suspicious for pulmonary embolism to necessitate CTA chest. Patient does have significant peripheral edema and is failing outpatient management. Patient will be admitted to the hospital for diuresis and further evaluation to the etiology of his peripheral edema. Care discussed with accepting physician Dr. Lala. - Vital Signs Vital signs: Temp Pulse Resp BP Pulse Ox 97.8 F 111 H 40 H 128/80 H 99 04/01/19 14:49 04/01/19 13:52 04/01/19 17:01 04/01/19 18:19 04/01/19 18:01 - Laboratory Result Diagrams: 04/01/19 14:30 04/01/19 14:30 Laboratory results interpreted by me: 04/01/19 04/01/19 04/01/19 14:30 14:30 16:11 Hgb 12.0 L MCV 77 L MCH 24.2 L MCHC 31.3 L RDW 18.5 H PT BUN 25 H Creatinine 1.48 H Est GFR ( Amer) 59 L Est GFR (MDRD) Non-Af 49 L Glucose 113 H Total Bilirubin 2.6 H Direct Bilirubin 1.4 H Alkaline Phosphatase 136 H Creatine Kinase 287 H Urine Protein 30 H Urine Bilirubin SMALL H Urine Urobilinogen 4.0 H 04/01/19 18:33 Hgb MCV MCH MCHC RDW PT 18.5 H BUN Creatinine Est GFR ( Amer) Est GFR (MDRD) Non-Af Glucose Total Bilirubin Direct Bilirubin Alkaline Phosphatase Creatine Kinase Urine Protein Urine Bilirubin Urine Urobilinogen - EKG Interpretation by Me Additional EKG results interpreted by me: 04/01/19 16:48 Interpreted by myself 1500: Sinus tachycardia, rate 106, left axis, LAFB, LVH, no STEMI 1633: Sinus tachycardia, rate 116, PVCs, left axis, LAFB, LVH, no significant change from initial Discharge - Discharge Clinical Impression: Anasarca, Pleural effusion, JORGE A (acute kidney injury) Condition: Stable Disposition: ADMITTED OBSERVATION Admitting Provider: Spike (Hospitalist) Unit Admitted: Medical Floor
[2019-04-01] MEDS ORDERED: FUROSEMIDE INJ/PF 40 MG/4 ML SDV ONE (15:57)
--- NOTE | 2019-04-01 16:00 | RADIOLOGY REPORT (SQ) ---
EXAM DESCRIPTION: CHEST SINGLE VIEW COMPLETED DATE/TIME: 04/01/2019 3:52 pm REASON FOR STUDY: SHORTNESS OF BREATH COMPARISON: None. NUMBER OF VIEWS: One view. TECHNIQUE: Single frontal radiographic view of the chest acquired. LIMITATIONS: None. FINDINGS: LUNGS AND PLEURA: There is a right pleural effusion. There is right basilar atelectasis o r pneumonia. Left lung field is clear. No pneumothorax. MEDIASTINUM AND HILAR STRUCTURES: No masses. Contour normal. HEART AND VASCULAR STRUCTURES: Heart normal in size. Normal vasculature. BONES: No acute findings. HARDWARE: None in the chest. OTHER: No other significant finding. IMPRESSION: Small right pleural effusion with right lower lobe infiltrate either atelectasis or pneu monia. TECHNICAL DOCUMENTATION: JOB ID: [id number] [employer]- All Rights Reserved Reading location - IP/workstation name: [email or web address]
[2019-04-01 16:41] LABS: APPEARANCE,URINE SLIGHTLY-CLOUDY; BILIRUBIN,URINE SMALL (NEGATIVE); COLOR,URINE AMBER; GLUCOSE, URINE NEGATIVE (NEGATIVE); KETONES,URINE NEGATIVE (NEGATIVE); LEUKOCYTE ESTERASE,URINE NEGATIVE (NEGATIVE); NITRITE,URINE NEGATIVE (NEGATIVE); PROTEIN,URINE 30 mg/dL (NEGATIVE); URINE SPECIFIC GRAVITY 1.026
[2019-04-01 18:58] LABS: INTERNATIONAL RATION (INR) 1.52; PROTHROMBIN TIME 18.5 SEC (11.4-15.4)
[2019-04-01 18:59] LABS: PARTIAL THROMBOPLASTIN TIME 34.5 SEC (23.5-35.8)
--- NOTE | 2019-04-01 19:06 | RADIOLOGY REPORT (SQ) ---
EXAM DESCRIPTION: VENOUS BILATERAL LOWER COMPLETED DATE/TIME: 04/01/2019 6:55 pm REASON FOR STUDY: edema COMPARISON: None. TECHNIQUE: Dynamic and static cramer scale and color images acquired of both lower extremity venous sy stems. Selected spectral images acquired with additional compression and augmentation maneuvers. Imag es stored on PACS. LIMITATIONS: None. FINDINGS: RIGHT LEG COMMON FEMORAL AND FEMORAL: Normal phasicity, compression and augmentation. No visualized echogenic m aterial on cramer scale. No defects on color images. POPLITEAL: Normal compression and augmentation. No visualized echogenic material on cramer scale. No de fects on color images. CALF VESSELS: Normal compression and augmentation. No visualized echogenic material on cramer scale. No defects on color image. GSV AND SSV: Normal compression. No visualized echogenic material on cramer scale. No defects on color images. ANY DEEP VENOUS INSUFFICIENCY: Not evaluated. ANY EVIDENCE OF POPLITEAL CYST: No. OTHER: No other significant finding. LEFT LEG COMMON FEMORAL AND FEMORAL: Normal phasicity, compression and augmentation. No visualized echogenic m aterial on cramer scale. No defects on color images. POPLITEAL: Normal compression and augmentation. No visualized echogenic material on cramer scale. No de fects on color images. CALF VESSELS: Normal compression and augmentation. No visualized echogenic material on cramer scale. No defects on color images. Peroneal veins could not be seen. GSV AND SSV: Normal compression. No visualized echogenic material on cramer scale. No defects on color images. ANY DEEP VENOUS INSUFFICIENCY: Not evaluated. ANY EVIDENCE POPLITEAL CYST: No. OTHER: No other significant finding. IMPRESSION: NO EVIDENCE DVT OR SVT IN EITHER LEG. TECHNICAL DOCUMENTATION: JOB ID: [id number] [email or web address] All Rights Reserved Reading location - IP/workstation name: [email or web address]
[2019-04-01] MEDS ORDERED: ONDANSETRON HCL INJ/PF 4 MG/2 ML SDV IV PRN (19:59)
[2019-04-01] MEDS ORDERED: MAG HYDROX/AL HYDROX/SIMETH SUSP 30 ML UDCUP PO PRN (19:59)
[2019-04-01] MEDS ORDERED: MAGNESIUM HYDROXIDE SUSP 30 ML UDCUP PO PRN (19:59)
[2019-04-01] MEDS ORDERED: HYDRALAZINE HCL INJ/PF 20 MG/1 ML SDV IV PRN (20:10)
[2019-04-01] MEDS ORDERED: ACETAMINOPHEN 325 MG TABLET PO PRN (20:10)
[2019-04-01] MEDS ORDERED: NALBUPHINE HCL INJ 10 MG/1 ML AMPULE IV PRN ×3 (20:10→20:43)
[2019-04-01] MEDS ORDERED: INSULIN REG, HUMAN 100 UNIT/ML 3 ML VIAL (PYX) SUBCUT PRN (20:31)
[2019-04-01] MEDS ORDERED: GLUCAGON,HUMAN RECOMB 1 MG INJ IM PRN (20:31)
[2019-04-01] MEDS ORDERED: DEXTROSE 50%-WATER 25 GM/50 ML DISP.SYRIN IV PRN ×2 (20:31)
[2019-04-01] MEDS ORDERED: DEXTROSE 40% GEL 15 GM TUBE PO PRN ×2 (20:31)
[2019-04-01] MEDS ORDERED: NORMAL SALINE 250 ML with FUROSEMIDE 250 MG IV PRN ×2 (20:36)
[2019-04-01 21:32] LABS: ANION GAP 11 (5-19); BLOOD UREA NITROGEN 26 mg/dL (7-20); CALCIUM 9.6 mg/dL (8.4-10.2); CARBON DIOXIDE 25 mmol/L (22-30); CHLORIDE 102 mmol/L (98-107); GLUCOSE 107 mg/dL (75-110); POTASSIUM 4.9 mmol/L (3.6-5.0)
[2019-04-01 21:41] LABS: CREATINE KINASE MB 3.2 ng/mL (<4.55); TROPONIN I 0.029 ng/mL
[2019-04-01 21:46] LABS: FREE T3 3.38 pg/mL (2.77-5.27); FREE T4 (FREE THYROXINE) 1.52 ng/dL (0.78-2.19)
[2019-04-01 22:00] LABS: THYROID STIMULATING HORMONE 2.12 uIU/mL (0.47-4.68)
[2019-04-01] MEDS: HEPARIN SOD (PORCINE) 5,000 UNIT/ML 1 ML VIAL SUBCUT SCH ×2 (22:57→23:19)
--- NOTE | 2019-04-01 23:06 | EKG REPORT ---
SEVERITY:- ABNORMAL ECG - SINUS TACHYCARDIA VENTRICULAR PREMATURE COMPLEXES LEFT ATRIAL ABNORMALITY LEFT ANTERIOR FASCICULAR BLOCK LEFT VENTRICULAR HYPERTROPHY : Confirmed by: Sherine Johns 01-Apr-2019 23:05:45
--- NOTE | 2019-04-01 23:06 | EKG REPORT ---
SEVERITY:- ABNORMAL ECG - SINUS TACHYCARDIA LEFT ATRIAL ABNORMALITY LEFT ANTERIOR FASCICULAR BLOCK LEFT VENTRICULAR HYPERTROPHY : Confirmed by: Sherine Johns 01-Apr-2019 23:06:00
--- NOTE | 2019-04-02 00:30 | PDOC H&P ---
History of Present Illness Admission Date/PCP: 04/01/19 19:34 HUGO TIDWELL MD Patient complains of: Edema History of Present Illness: ALANNA CALDWELL is a 59 year old male who presented to the emergency room with a 8-day history of edema. Patient admits that 8 days ago he began having i ncreased swelling of his lower extremities which is been gradually spreading up to his waist. The swelling is accompanied by severe orthopnea and the sensation of a constantly present, moderately intense, aching throbbing pressure in both of his lower extremities without radiation. He normally walks with a walker but his legs have been so heavy and swollen that he is not been able to walk and has been wheelchair-bound for the last several days. He was seen by his primary care provider and started on Lasix 1 week ago however his symptoms have continued to worsen rather than improve. He acknowledges accompanying decreased urinary output and dark urine when he does pass urine. He denies prior similar symptoms and has not identified any aggravating or ameliorating factors for his swelling. In the emergency room he was found to have a mildly elevated BUN and creatinine and a negative venous Doppler study of the bilateral lower extremities. Chest x-ray revealed mild cardiomegaly and a small pleural effusion. Patient was subsequently admitted to the hospital for further evaluation treatment. Past Medical History Cardiac Medical History: Reports: Hyperlipidema, Hypertension Denies: Atrial Fibrillation, Congestive Heart Failure, Coronary Artery Disease, DVT, Myocardial Infarction Pulmonary Medical History: Denies: Asthma, Chronic Obstructive Pulmonary Disease (COPD) EENT Medical History: Denies: Cataracts, Ears - Hearing aids Neurological Medical History: Reports: Other - Spinal cord injury Denies: Hemorrhagic CVA, Ischemic CVA, Seizures Endocrine Medical History: Reports: Diabetes Mellitus Type 2 Denies: Diabetes Mellitus Type 1, Hyperthyroidism, Hypothyroidism Renal/ Medical History: Reports: Nephrolithiasis Denies: Chronic Kidney Disease Malignancy Medical History: Reports: None GI Medical History: Denies: Cirrhosis, Crohn's Disease, Hepatitis, Peptic Ulcer Disease, Ulcerative Colitis Musculoskeltal Medical History: Denies: Arthritis, Gout Skin Medical History: Denies: Eczema, Psoriasis Psychiatric Medical History: Reports: Tobacco Dependency Denies: Alcohol Dependency, Substance Abuse Traumatic Medical History: Reports: Other - Spinal cord injury Hematology: Denies: Anemia, Bleeding Tendencies Infectious Medical History: Reports: None Past Surgical History Past Surgical History: Reports: Orthopedic Surgery - Spinal surgery related to accidental injury, Other - Penile implant (bladder pump type) Social History Information Source: Patient Lives with: Alone Smoking Status: Former Smoker Frequency of Alcohol Use: None Hx Recreational Drug Use: No Drugs: None Hx Prescription Drug Abuse: No - Advance Directive Resuscitation Status: Full Code Surrogate healthcare decision maker:: Ruben Caldwell Family History Family History: DM, Hypertension, Other - Congestive heart failure, asthma Parental Family History Reviewed: Yes Children Family History Reviewed: No Sibling(s) Family History Reviewed.: Yes Medication/Allergy Home Medications: Furosemide [Lasix 40 mg Tablet] 40 mg PO DAILY 04/01/19 Ibuprofen [Advil] 200 mg PO Q4HP PRN 04/01/19 Oxycodone HCl/Acetaminophen [Percocet 10-325 mg Tablet] 1 tab PO Q8HP PRN 10/15 Allergies/Adverse Reactions: No Known Allergies Allergy (Verified 02/16/19 08:06) Review of Systems Constitutional: ABSENT: chills, fever(s) Eyes: ABSENT: visual disturbances, other - Eye pain Ears: ABSENT: hearing changes, other - Ear pain Nose, Mouth, and Throat: ABSENT: mouth pain, sore throat Cardiovascular: ABSENT: chest pain, palpitations Respiratory: ABSENT: cough, dyspnea Gastrointestinal: ABSENT: abdominal pain, constipation, diarrhea, nausea, vomiting Genitourinary: PRESENT: other - Decreased urinary output and dark urine. ABS ENT: dysuria, hematuria Musculoskeletal: ABSENT: joint swelling, muscle weakness Integumentary: ABSENT: pruritus, rash Neurological: ABSENT: confusion, convulsions, focal weakness, memory loss, syncope Psychiatric: ABSENT: anxiety, depression Endocrine: ABSENT: cold intolerance, heat intolerance Hematologic/Lymphatic: ABSENT: easy bleeding, easy bruising Allergic/Immunologic: ABSENT: seasonal rhinorrhea Physical Exam Vital Signs: Temp Pulse Resp BP Pulse Ox 97.8 F 111 H 40 H 128/80 H 99 04/01/19 14:49 04/01/19 13:52 04/01/19 17:01 04/01/19 18:19 04/01/19 18:01 Intake & Output 03/30/19 03/31/19 04/01/19 23:59 23:59 23:59 Weight 77.111 kg General appearance: PRESENT: no acute distress, cooperative Head exam: PRESENT: atraumatic, normocephalic Eye exam: PRESENT: conjunctiva pink. ABSENT: conjunctival injection, scleral icterus Ear exam: PRESENT: normal external ear exam. ABSENT: bleeding, drainage Mouth exam: PRESENT: dry mucosa, neck supple Neck exam: PRESENT: JVD - Bilateral at 45 degrees. ABSENT: thyromegaly, tracheal deviation Respiratory exam: PRESENT: rales - Fine bibasilar rales noted, symmetrical, unlabored Cardiovascular exam: PRESENT: gallop - S4 gallop rhythm noted, RRR. ABSENT: clicks, rubs Pulses: PRESENT: normal carotid pulses, normal radial pulses Vascular exam: PRESENT: normal capillary refill. ABSENT: pallor GI/Abdominal exam: PRESENT: normal bowel sounds, soft Rectal exam: PRESENT: deferred Extremities exam: PRESENT: +2 edema - 2+ pitting edema of the bilateral lower extremities to the hips. ABSENT: joint swelling Musculoskeletal exam: ABSENT: deformity, dislocation Neurological exam: PRESENT: alert, oriented to person, oriented to place, oriented to time, oriented to situation, CN II-XII grossly intact, motor sensory deficit - Mildly decreased strength in bilateral lower extremities Psychiatric exam: PRESENT: appropriate affect, normal mood Skin exam: PRESENT: dry, intact, warm. ABSENT: jaundice, rash, urticaria Results Laboratory Results: 04/01/19 14:30 04/01/19 14:30 04/01/19 04/01/19 04/01/19 14:30 14:30 16:11 WBC 7.1 RBC 4.97 Hgb 12.0 L Hct 38.4 MCV 77 L MCH 24.2 L MCHC 31.3 L RDW 18.5 H Plt Count 247 Seg Neutrophils % 60.2 Sodium 138.2 Potassium 4.7 Chloride 103 Carbon Dioxide 25 Anion Gap 10 BUN 25 H Creatinine 1.48 H Est GFR ( Amer) 59 L Glucose 113 H Calcium 9.4 Total Bilirubin 2.6 H AST 38 Alkaline Phosphatase 136 H Total Protein 6.9 Albumin 3.8 Lipase 38.1 Urine Color JEREMIAH Urine Appearance SLIGHTLY-CLOUDY Urine pH 5.0 Ur Specific Harvest 1.026 Urine Protein 30 H Urine Glucose (UA) NEGATIVE Urine Ketones NEGATIVE Urine Blood NEGATIVE Urine Nitrite NEGATIVE Ur Leukocyte Esterase NEGATIVE Urine WBC (Auto) 2 Urine RBC (Auto) 0 04/01/19 04/01/19 14:30 14:30 Creatine Kinase 287 H CK-MB (CK-2) 3.56 Impressions: Chest X-Ray 04/01/19 00:00 IMPRESSION: Small right pleural effusion with right lower lobe infiltrate either atelectasis or pneumonia. Venous Doppler Study 04/01/19 15:44 IMPRESSION: NO EVIDENCE DVT OR SVT IN EITHER LEG. Assessment and Plan - Diagnosis (1) Acute congestive heart failure Qualifiers: Heart failure type: unspecified Qualified Code(s): I50.9 - Heart failure, unspecified Is this a current diagnosis for this admission?: Yes Plan: Patient be treated with a Lasix infusion for initial therapy. A cardiology consultation with Dr. Breen will be obtained. An echocardiogram will be obtained. Serial cardiac enzymes will be performed. A BNP will be obtained. Daily metabolic profiles will be obtained. (2) Diabetes mellitus type 2 in nonobese Is this a current diagnosis for this admission?: Yes Plan: Hemoglobin A1c will be obtained and patient will be continued on his usual diabetic therapy and diet pending results. (3) Hypertension Qualifiers: Hypertension type: essential hypertension Qualified Code(s): I10 - Essential (primary) hypertension Is this a current diagnosis for this admission?: Yes Plan: Patient's antihypertensive regiment will be adjusted in order to treat his congestive heart failure. (4) Hyperlipidemia Qualifiers: Hyperlipidemia type: unspecified Qualified Code(s): E78.5 - Hyperlipidemia, unspecified Is this a current diagnosis for this admission?: Yes Plan: A lipid profile will be obtained to assess the efficacy of the patient's current therapy. Patient's current therapeutic regiment and diet will be continued pe nding results. (5) JORGE A (acute kidney injury) Is this a current diagnosis for this admission?: Yes Plan: Patient's renal functions be monitored closely with daily metabolic profiles. Daily CBCs and magnesium levels will also be obtained. Consultation with nephrology will also be obtained with Dr. Gillespie. - Time Time Spent with patient: 25-34 minutes Medications reviewed and adjusted accordingly: Yes Anticipated discharge: Home - Inpatient Certification Based on my medical assessment, after consideration of the patient's comorbidities, presenting symptoms, or acuity I expect that the services needed warrant INPATIENT care.: Yes I certify that my determination is in accordance with my understanding of Medicare's requirements for reasonable and necessary INPATIENT services [42 CFR 412.3e].: Yes Medical Necessity: Failure to Improve With Outpatient Therapy, Significant Comorbidiites Make Outpatient Treatment Too Risky, Need Close Monitoring Due to Risk of Patient Decompensation, Need For Continuous Telemetry Monitoring, Risk of Complication if Not Cared For in Hospital, Risk of Diagnosis Which Will Require Inpatient Eval/Care/Monitoring
[2019-04-02 03:13] LABS: HEMATOCRIT 38.7 % (37.9-51.0); MEAN CORPUSCULAR HEMOGLOBIN 23.9 pg (27.0-33.4); MEAN CORPUSCULAR HGB CONC 31.1 g/dL (32.0-36.0); MEAN CORPUSCULAR VOLUME 77 fl (80-97); PLATELET COUNT 256 10^3/uL (150-450); RED BLOOD COUNT 5.02 10^6/uL (4.35-5.55); RED CELL DISTRIBUTION WIDTH 18.3 % (11.5-14.0); WHITE BLOOD COUNT 7.8 10^3/uL (4.0-10.5)
[2019-04-02 03:41] LABS: ANION GAP 15 (5-19); BLOOD UREA NITROGEN 26 mg/dL (7-20); CALCIUM 9.3 mg/dL (8.4-10.2); CARBON DIOXIDE 21 mmol/L (22-30); CHLORIDE 102 mmol/L (98-107); CREATINE KINASE 290 U/L (55-170); GLUCOSE 126 mg/dL (75-110); POTASSIUM 4.6 mmol/L (3.6-5.0)
[2019-04-02 03:50] LABS: CREATINE KINASE MB 2.65 ng/mL (<4.55); TROPONIN I 0.035 ng/mL
[2019-04-02 03:54] LABS: DIRECT LDL 103 mg/dL (<100); TRIGLYCERIDES 60 mg/dL (<150)
[2019-04-02] MEDS: HEPARIN SOD (PORCINE) 5,000 UNIT/ML 1 ML VIAL SUBCUT SCH ×3 (05:28→21:13)
[2019-04-02] MEDS: PANTOPRAZOLE SODIUM 40 MG TABLET.DR PO SCH ×2 (05:28→17:45)
--- NOTE | 2019-04-02 09:03 | PDOC PROGRESS REPORT ---
Subjective Progress Note for:: 04/02/19 Subjective:: 59 year old male who presented to the emergency room with a 8-day history of edema. Patient admits that 8 days ago he began having increased swelling of his lower extremities which is been gradually spreading up to his waist. The swelling is accompanied by severe orthopnea and the sensation of a constantly present, moderately intense, aching throbbing pressure in both of his lower extremities without radiation. He normally walks with a walker but his legs have been so heavy and swollen that he is not been able to walk and has been wheelchair-bound for the last several days. He was seen by his primary care provider and started on Lasix 1 week ago however his symptoms have continued to worsen rather than improve. He acknowledges accompanying decreased urinary output and dark urine when he does pass urine. He denies prior similar symptoms and has not identified any aggravating or ameliorating factors for his swelling. In the emergency room he was found to have a mildly elevated BUN and creatinine and a negative venous Doppler study of the bilateral lower extremities. Chest x-ray revealed mild cardiomegaly and a small pleural effusion. Patient was subsequently admitted to the hospital for further evaluation treatment. 04/02/[id number]-old male admitted with bilateral lower extremity edema BNP at the time of admission is more than 9000 chest x-ray shows small right pleural effusion and questionable right lower lobe infiltrate. Patient says he is feeling much better. He was on Lasix drip. He is peeing a lot. But there is a concern about a penile implant so the Amtias's catheter was not placed but according to the patient he has a bladder bladder stimulator do not have panel stimulator. But we could hold off on placing Matias's catheter at this moment. No acute events since admission. Afebrile. Patient states he is breathing better today. Reason For Visit: ACUTE CONGESTIVE HEART FAILURE Physical Exam Vital Signs: Temp Pulse Resp BP Pulse Ox 97.9 F 109 H 16 118/65 100 04/02/19 07:23 04/02/19 07:23 04/02/19 07:23 04/02/19 07:23 04/02/19 07:23 Intake & Output 04/01/19 04/02/19 04/03/19 06:59 06:59 06:59 Intake Total 0 Output Total 550 Balance -550 Weight 77.5 kg General appearance: PRESENT: no acute distress, cooperative Head exam: PRESENT: atraumatic Eye exam: PRESENT: PERRLA Mouth exam: PRESENT: moist, tongue midline Neck exam: ABSENT: carotid bruit, JVD, lymphadenopathy, thyromegaly Respiratory exam: PRESENT: clear to auscultation elver, decreased breath sounds Cardiovascular exam: PRESENT: RRR. ABSENT: diastolic murmur, rubs, systolic murmur GI/Abdominal exam: PRESENT: normal bowel sounds, soft. ABSENT: distended, guarding, mass, organolmegaly, rebound, tenderness Rectal exam: PRESENT: deferred Extremities exam: PRESENT: +2 edema Neurological exam: PRESENT: alert, awake, oriented to person, oriented to place, oriented to time, oriented to situation, CN II-XII grossly intact. ABSENT: motor sensory deficit Psychiatric exam: PRESENT: appropriate affect, normal mood. ABSENT: homicidal ideation, suicidal ideation Results Laboratory Results: 04/02/19 02:57 04/02/19 02:57 04/01/19 04/01/19 04/01/19 14:30 14:30 16:11 WBC 7.1 RBC 4.97 Hgb 12.0 L Hct 38.4 MCV 77 L MCH 24.2 L MCHC 31.3 L RDW 18.5 H Plt Count 247 Seg Neutrophils % 60.2 Sodium 138.2 Potassium 4.7 Chloride 103 Carbon Dioxide 25 Anion Gap 10 BUN 25 H Creatinine 1.48 H Est GFR ( Amer) 59 L Glucose 113 H Calcium 9.4 Magnesium Total Bilirubin 2.6 H AST 38 Alkaline Phosphatase 136 H Total Protein 6.9 Albumin 3.8 Triglycerides Cholesterol LDL Cholesterol Direct VLDL Cholesterol HDL Cholesterol Lipase 38.1 TSH Free T4 Free T3 pg/mL Urine Color JEREMIAH Urine Appearance SLIGHTLY-CLOUDY Urine pH 5.0 Ur Specific [place] 1.026 Urine Protein 30 H Urine Glucose (UA) NEGATIVE Urine Ketones NEGATIVE Urine Blood NEGATIVE Urine Nitrite NEGATIVE Ur Leukocyte Esterase NEGATIVE Urine WBC (Auto) 2 Urine RBC (Auto) 0 04/01/19 04/01/19 04/02/19 20:49 20:49 02:57 WBC RBC Hgb Hct MCV MCH MCHC RDW Plt Count Seg Neutrophils % Sodium 138.4 137.9 Potassium 4.9 4.6 Chloride 102 102 Carbon Dioxide 25 21 L Anion Gap 11 15 BUN 26 H 26 H Creatinine 1.56 H 1.62 H Est GFR ( Amer) 56 L 53 L Glucose 107 126 H Calcium 9.6 9.3 Magnesium Total Bilirubin AST Alkaline Phosphatase Total Protein Albumin Triglycerides Cholesterol LDL Cholesterol Direct VLDL Cholesterol HDL Cholesterol Lipase TSH 2.12 Free T4 1.52 Free T3 pg/mL 3.38 Urine Color Urine Appearance Urine pH Ur Specific [place] Urine Protein Urine Glucose (UA) Urine Ketones Urine Blood Urine Nitrite Ur Leukocyte Esterase Urine WBC (Auto) Urine RBC (Auto) 04/02/19 04/02/19 02:57 02:57 WBC 7.8 RBC 5.02 Hgb 12.0 L Hct 38.7 MCV 77 L MCH 23.9 L MCHC 31.1 L RDW 18.3 H Plt Count 256 Seg Neutrophils % Sodium Potassium Chloride Carbon Dioxide Anion Gap BUN Creatinine Est GFR ( Amer) Glucose Calcium Magnesium 2.0 Total Bilirubin AST Alkaline Phosphatase Total Protein Albumin Triglycerides 60 Cholesterol 129.20 LDL Cholesterol Direct 103 H VLDL Cholesterol 12.0 HDL Cholesterol 26 L Lipase TSH Free T4 Free T3 pg/mL Urine Color Urine Appearance Urine pH Ur Specific [place] Urine Protein Urine Glucose (UA) Urine Ketones Urine Blood Urine Nitrite Ur Leukocyte Esterase Urine WBC (Auto) Urine RBC (Auto) 04/01/19 04/01/19 04/01/19 14:30 14:30 20:49 Creatine Kinase 287 H CK-MB (CK-2) 3.56 3.20 Troponin I 0.029 NT-Pro-B Natriuret Pep 9060 H 04/01/19 04/02/19 04/02/19 20:49 02:57 02:57 Creatine Kinase 284 H 290 H CK-MB (CK-2) 2.65 Troponin I 0.035 NT-Pro-B Natriuret Pep Impressions: Chest X-Ray 04/01/19 00:00 IMPRESSION: Small right pleural effusion with right lower lobe infiltrate either atelectasis or pneumonia. Venous Doppler Study 04/01/19 15:44 IMPRESSION: NO EVIDENCE DVT OR SVT IN EITHER LEG. Assessment and Plan - Diagnosis (1) Acute congestive heart failure Qualifiers: Heart failure type: unspecified Qualified Code(s): I50.9 - Heart failure, u nspecified Is this a current diagnosis for this admission?: Yes Plan: Patient be treated with a Lasix infusion for initial therapy. A cardiology consultation with Dr. Breen will be obtained. An echocardiogram will be obtained. Serial cardiac enzymes will be performed. A BNP will be obtained. Daily metabolic profiles will be obtained. 04/02/2019-patient denies any history of congestive heart failure is having this lower leg extremity edema for the last 1-1/2 weeks according to the patient is drinking a lot of juices and plenty of water for the last 2 weeks. We could put him on a fluid restriction 1500 cc/h and discontinue IV Lasix switch to Lasix 40 mg twice a day IV and to check daily weights and if possible to do the input output chart. Plan is to repeat the labs tomorrow and chest x-ray tomorrow. Cardiogram is pending. (2) JORGE A (acute kidney injury) Is this a current diagnosis for this admission?: Yes Plan: Patient's renal functions be monitored closely with daily metabolic profiles. Daily CBCs and magnesium levels will also be obtained. Consultation with nephrology will also be obtained with Dr. Gillespie. 04/02/2019-serum creatinine today is 1.62 the creatinine in October is 1.28. Consultation with Dr. Gillespie was requested. JORGE A may be secondary to CHF exacerbation. AKA may be contributing to his increased BNP. to arrange for the renal ultrasound today. (3) Diabetes mellitus type 2 in nonobese Is this a current diagnosis for this admission?: Yes Plan: Hemoglobin A1c will be obtained and patient will be continued on his usual diabetic therapy and diet pending results. 04/02/2019-patient's hemoglobin A1c 6.1. Presently on insulin sliding scale before meals and at bedtime on carb diet. Compliance with medication was advised. (4) Hypertension Qualifiers: Hypertension type: essential hypertension Qualified Code(s): I10 - Essential (primary) hypertension Is this a current diagnosis for this admission?: Yes Plan: Patient's antihypertensive regiment will be adjusted in order to treat his congestive heart failure. 04/02/2019-patient has no history of congestive heart failure not on diuretics at home. Plan is to discontinue IV Lasix start on Lasix 40 mg IV twice a day and to hold off on PEMA inhibitors for until the kidney function is improved. (5) Pleural effusion Is this a current diagnosis for this admission?: Yes Plan: 04/02/2019-chest x-ray shows mild right pleural effusion it may be secondary to CHF. We will plan to do the follow-up chest x-rays. - Time Time Spent with patient: 15-24 minutes Medications reviewed and adjusted accordingly: Yes Anticipated discharge: Home
[2019-04-02] MEDS: DOCUSATE SODIUM 100 MG CAPSULE PO SCH ×2 (10:10→17:38)
[2019-04-02] MEDS: FUROSEMIDE INJ/PF 40 MG/4 ML SDV IV SCH ×2 (10:18→21:14)
[2019-04-02 11:11] LABS: ANION GAP 13 (5-19); BLOOD UREA NITROGEN 27 mg/dL (7-20); CALCIUM 9.3 mg/dL (8.4-10.2); CARBON DIOXIDE 25 mmol/L (22-30); CHLORIDE 100 mmol/L (98-107); CREATINE KINASE 266 U/L (55-170); GLUCOSE 126 mg/dL (75-110); POTASSIUM 4.2 mmol/L (3.6-5.0)
[2019-04-02 11:17] LABS: CREATINE KINASE MB 2.4 ng/mL (<4.55); TROPONIN I 0.035 ng/mL
[2019-04-02 15:35] LABS: ANION GAP 9 (5-19); BLOOD UREA NITROGEN 28 mg/dL (7-20); CALCIUM 9.1 mg/dL (8.4-10.2); CARBON DIOXIDE 28 mmol/L (22-30); CHLORIDE 99 mmol/L (98-107); GLUCOSE 124 mg/dL (75-110)
--- NOTE | 2019-04-02 17:54 | PDOC CONSULTATION ---
Consultation Consult Date: 04/02/19 Provider Consulted: SUSAN PHILLIPS Consult reason:: I was asked to see the patient due to worsening kidney function. History of Present Illness Admission Date/PCP: 04/01/19 19:34 HUGO TIDWELL MD History of Present Illness: ALANNA SAHU is a 59 year old -[place] gentleman with apparent history of hypertension, hyperlipidemia, diabetes mellitus type 2 who has not been taking any maintenance medications for these who presented yesterday with worsening lower extremity edema. Patient said that his been going on for the past 8 days. Due to worsening edema he is unable to walk and has been wheelchair-bound for the past few days. He describes orthopnea. He has dyspnea on exertion. He denies any chest pains. He has a slight cough but n onproductive. He denies fever nor chills. He denies any nausea or vomiting and claims that he is eating good. He also noted decrease in urine output and a dark urine. He started having diarrhea last night. Prior to admission he went to his primary care provider who started him on Lasix. Upon presentation his chest x-ray revealed mild cardiomegaly with small right pleural effusion and right lower lobe infiltrate. His venous Doppler of lower extremities are negative for DVT. He was then started with Lasix drip and was just discontinued today and switch to Lasix 40 mg IV every 12 hours. He made about 550 mL of urine output since admission. I was called to see the patient today for worsening kidney function. On admission he had a BUN of 25, creatinine of 1.48 with EGFR 59 and today he had a BUN of 28, creatinine of 1.71 with EGFR of 50. Lab tests from [facility] on March 18 revealed a BUN of 20, creatinine 1.36 with EGFR of 66 and on February 16 here at [facility] he had a BUN of 19, creatinine 1.3 with EGFR greater than 60. His urinalysis showed only 30 protein and no blood. Kidney ultrasound has been ordered. Patient said that his urine output seems to be improving today and his urine color is becoming industrial custodian. He denies any previous known kidney issues. He admits having kidney stones but has not passed any. He does have bladder stimulator implant placed in [address] [place] [address] Jones for urinary incontinence after a spinal injury. He also takes Advil 2 tablets every night for the past 6 months due to low back pain. Currently he feels better compared to yesterday. Past Medical History Cardiac Medical History: Reports: Hyperlipidemia, Hypertension-primary Neurological Medical History: Reports: Other - Spinal cord injury with shunt placement Endocrine Medical History: Reports: Diabetes Mellitus Type 2 Renal/ Medical History: Reports: Nephrolithiasis, Other - Urinary incontinence with bladder stimulator implant Psychiatric Medical History: Reports: Tobacco Dependency Traumatic Medical History: Reports: Other - Spinal cord injury Past Surgical History Past Surgical History: Reports: Orthopedic Surgery - Spinal surgery related to accidental injury, Other - Bladder implant stimulator placement in 2013 in [place] by his urologist Social History Information Source: Patient Occupation: On disability Lives with: Family - With son Smoking Status: Former Smoker - Quit 3 months ago Frequency of Alcohol Use: Occasional Hx Recreational Drug Use: No Drugs: None Hx Prescription Drug Abuse: No - Advance Directive Resuscitation Status: Full Code Family History Family History: CAD - Sister, DM - Father, Hypertension - Mother, Other - Asthma on his mother Family History: Denies kidney disease in the family Parental Family History Reviewed: Yes Children Family History Reviewed: Yes Sibling(s) Family History Reviewed.: Yes Medication/Allergy Home Medications: Furosemide [Lasix 40 mg Tablet] 40 mg PO DAILY 04/01/19 Ibuprofen [Advil] 200 mg PO Q4HP PRN 04/01/19 Oxycodone HCl/Acetaminophen [Percocet 10-325 mg Tablet] 1 tab PO Q8HP PRN 04/01/19 Allergies/Adverse Reactions: No Known Allergies Allergy (Verified 02/16/19 08:06) Review of Systems All systems: reviewed and no additional remarkable complaints except as stated Review of Systems: Constitutional: ABSENT: chills, fatigue, fever(s), headache(s), weight gain, weight loss Eyes: ABSENT: visual disturbances Ears: ABSENT: hearing changes Cardiovascular: ABSENT: chest pain, palpitations; admits dyspnea on exertion, orthopnea, and lower extremity edema Respiratory: ABSENT: Dyspnea, hemoptysis; admits cough Gastrointestinal: ABSENT: abdominal pain, constipation, diarrhea, hematemesis, hematochezia, nausea, vomiting Genitourinary: ABSENT: dysuria, hematuria; decreased urine output on presentation Musculoskeletal: ABSENT: joint swelling Integumentary: ABSENT: rash, wounds Neurological: ABSENT: abnormal gait, abnormal speech, confusion, dizziness, focal weakness, numbness, syncope Psychiatric: ABSENT: anxiety, depression Endocrine: ABSENT: cold intolerance, heat intolerance, polydipsia, polyuria Hematologic/Lymphatic: ABSENT: easy bleeding, easy bruising, lymphadenopathy Physical Exam Vital Signs: Temp Pulse Resp BP Pulse Ox 97.9 F 109 H 16 118/65 100 04/02/19 07:23 04/02/19 07:23 04/02/19 07:23 04/02/19 07:23 04/02/19 07:23 Intake & Output 04/01/19 04/02/19 04/03/19 06:59 06:59 06:59 Intake Total 0 Output Total 550 Balance -550 Weight 77.5 kg Exam: General appearance: No acute distress, cooperative, well-developed, well- nourished Head exam: PRESENT: atraumatic, normocephalic Eye exam: PRESENT: Conjunctiva slightly pale, EOMI, PERRLA. ABSENT: conjuncti florence injection, scleral icterus Mouth exam: PRESENT: moist, neck supple, tongue midline Neck exam: PRESENT: full ROM. ABSENT: carotid bruit, JVD, lymphadenopathy, thyromegaly Respiratory exam: PRESENT: clear to auscultation bilaterally. He has a spinal cord shunt on his upper back ABSENT: rales, rhonchi, stridor, wheezes Cardiovascular exam: PRESENT: RRR, +S1, +S2. ABSENT: systolic murmur Pulses: PRESENT: normal radial pulses, normal dorsalis pedis pulses GI/Abdominal exam: PRESENT: normal bowel sounds, soft. Bladder implant stimulator at the left buttock ABSENT: guarding, mass, tenderness Rectal exam: Deferred Extremities exam: PRESENT: full ROM. Grade 1 bilateral lower extremity pitting edema ABSENT: calf tenderness Musculoskeletal: PRESENT: full ROM. ABSENT: deformity Neurological exam: PRESENT: alert, Awake, Oriented to person, Oriented to place, Oriented to time, reflexes normal, CN II-XII grossly intact. ABSENT: motor sensory deficit Psychiatric exam: PRESENT: appropriate affect, normal mood. ABSENT: homicidal ideation, suicidal ideation Skin exam: PRESENT: intact, dry, warm. ABSENT: rash Results Laboratory Results: 04/02/19 02:57 04/01/19 04/01/19 04/01/19 14:30 14:30 16:11 WBC 7.1 RBC 4.97 Hgb 12.0 L Hct 38.4 MCV 77 L MCH 24.2 L MCHC 31.3 L RDW 18.5 H Plt Count 247 Seg Neutrophils % 60.2 Sodium 138.2 Potassium 4.7 Chloride 103 Carbon Dioxide 25 Anion Gap 10 BUN 25 H Creatinine 1.48 H Est GFR ( Amer) 59 L Glucose 113 H Calcium 9.4 Magnesium Total Bilirubin 2.6 H AST 38 Alkaline Phosphatase 136 H Total Protein 6.9 Albumin 3.8 Triglycerides Cholesterol LDL Cholesterol Direct VLDL Cholesterol HDL Cholesterol Lipase 38.1 TSH Free T4 Free T3 pg/mL Urine Color JEREMIAH Urine Appearance SLIGHTLY-CLOUDY Urine pH 5.0 Ur Specific [place] 1.026 Urine Protein 30 H Urine Glucose (UA) NEGATIVE Urine Ketones NEGATIVE Urine Blood NEGATIVE Urine Nitrite NEGATIVE Ur Leukocyte Esterase NEGATIVE Urine WBC (Auto) 2 Urine RBC (Auto) 0 04/01/19 04/01/19 04/02/19 20:49 20:49 02:57 WBC RBC Hgb Hct MCV MCH MCHC RDW Plt Count Seg Neutrophils % Sodium 138.4 137.9 Potassium 4.9 4.6 Chloride 102 102 Carbon Dioxide 25 21 L Anion Gap 11 15 BUN 26 H 26 H Creatinine 1.56 H 1.62 H Est GFR ( Amer) 56 L 53 L Glucose 107 126 H Calcium 9.6 9.3 Magnesium Total Bilirubin AST Alkaline Phosphatase Total Protein Albumin Triglycerides Cholesterol LDL Cholesterol Direct VLDL Cholesterol HDL Cholesterol Lipase TSH 2.12 Free T4 1.52 Free T3 pg/mL 3.38 Urine Color Urine Appearance Urine pH Ur Specific [place] Urine Protein Urine Glucose (UA) Urine Ketones Urine Blood Urine Nitrite Ur Leukocyte Esterase Urine WBC (Auto) Urine RBC (Auto) 04/02/19 04/02/19 02:57 02:57 WBC 7.8 RBC 5.02 Hgb 12.0 L Hct 38.7 MCV 77 L MCH 23.9 L MCHC 31.1 L RDW 18.3 H Plt Count 256 Seg Neutrophils % Sodium Potassium Chloride Carbon Dioxide Anion Gap BUN Creatinine Est GFR ( Amer) Glucose Calcium Magnesium 2.0 Total Bilirubin AST Alkaline Phosphatase Total Protein Albumin Triglycerides 60 Cholesterol 129.20 LDL Cholesterol Direct 103 H VLDL Cholesterol 12.0 HDL Cholesterol 26 L Lipase TSH Free T4 Free T3 pg/mL Urine Color Urine Appearance Urine pH Ur Specific [place] Urine Protein Urine Glucose (UA) Urine Ketones Urine Blood Urine Nitrite Ur Leukocyte Esterase Urine WBC (Auto) Urine RBC (Auto) 04/01/19 04/01/19 04/01/19 14:30 14:30 20:49 Creatine Kinase 287 H CK-MB (CK-2) 3.56 3.20 Troponin I 0.029 NT-Pro-B Natriuret Pep 9060 H 04/01/19 04/02/19 04/02/19 20:49 02:57 02:57 Creatine Kinase 284 H 290 H CK-MB (CK-2) 2.65 Troponin I 0.035 NT-Pro-B Natriuret Pep Impressions: Chest X-Ray 04/01/19 00:00 IMPRESSION: Small right pleural effusion with right lower lobe infiltrate either atelectasis or pneumonia. Venous Doppler Study 04/01/19 15:44 IMPRESSION: NO EVIDENCE DVT OR SVT IN EITHER LEG. Assessment & Plan - Diagnosis (1) JORGE A (acute kidney injury) Is this a current diagnosis for this admission?: Yes Plan: Patient is currently nonoliguric without any significant microhematuria nor microalbuminuria. This is most likely secondary to acute congestive heart failure exacerbation with current diuresis with contribution of NSAID use with ibuprofen. If the patient has been having lower extremity edema and hypervolemic state for the last month or so it is possible that the patient's initial kidney function may not be his real baseline and as we treat his congestive heart failure he might be able to see the patient's actual kidney function. At this time I would continue treatment for congestive heart failure with floorworker distributor guidance. Avoid nephrotoxic medications. Monitor kidney function and electrolytes. He does not need any acute renal replacement therapy at this time. We will closely monitor with you. Will review kidney ultrasound once done. (2) Acute congestive heart failure Qualifiers: Heart failure type: unspecified Qualified Code(s): I50.9 - Heart failure, unspecified Is this a current diagnosis for this admission?: Yes Plan: Continue intermittent IV Lasix. Cardiology consulted. Echocardiogram's official interpretation is still pending but Dr. Breen informed me that the patient's ejection fraction is on the 20s. (3) Diabetes mellitus type 2 in nonobese Is this a current diagnosis for this admission?: Yes Plan: Controlled without medications. (4) Hypertension Qualifiers: Hypertension type: essential hypertension Qualified Code(s): I10 - Essential (primary) hypertension Is this a current diagnosis for this admission?: Yes Plan: Well-controlled. (5) Pleural effusion Is this a current diagnosis for this admission?: Yes Plan: Likely related to CHF. (6) Anemia Is this a current diagnosis for this admission?: Yes - Notes Notes: Thank you very much for this consultation. - Time Time Spent: 50 to 70 Minutes
--- NOTE | 2019-04-02 21:55 | PDOC CONSULTATION ---
Consultation-Blank Consultation: CARDIOLOGY CONSULTATION by Dr. Doris Breen on 04/02/2019. Patient seen at 2:30 PM on [id number]. 60 minutes spent on this patient with more than 50% of time spent in direct patient care. CONSULT REQUESTING PHYSICIAN: [facility] Cisco [facility], [facility]. REASON FOR CONSULTATION: Patient with new onset of CHF. HISTORY of PRESENT ILLNESS: Patient is a 59-year-old Afro-[place] male admitted with 8 days duration of dyspnea on exertion to rest dyspnea shortness of breath with PND and orthopnea. He denies any chest pain or discomfort. He also complains that he has had palpitations without dizziness or syncope. He is also had leg swelling since the last 8 days. He also has been having throbbing pain in both the lower extremities. Of note the patient states he is not a diabetic or hypertensive. He states he checks his blood sugar twice daily and also his blood pressure twice daily and they are within normal limits. He has a history of spinal cord injury and after back surgery has had chronic back pain and is on ibuprofen every night since the last 1 year. His renal function is compromised. He denies any knowledge of chronic kidney disease. The patient most likely is a hypertensive which is not been treated, and also has diabetes mellitus that has not been treated. The patient admitted now with new onset congestive heart failure. There is no history of ME or anginal symptoms. There is no history of asthma or COPD. There is no history of sleep apnea. There is no history of thyroid disease. There is no history of TIA CVA. The patient denies any history of anxiety or depression. Since his spinal cord injury he has had problems with urinating and has a bladder stimulator in site. Past Medical History Cardiac Medical History: Reports: Hyperlipidema, Hypertension Denies: Atrial Fibrillation, Congestive Heart Failure, Coronary Artery Disease, DVT, Myocardial Infarction Pulmonary Medical History: Denies: Asthma, Chronic Obstructive Pulmonary Disease (COPD) EENT Medical History: Denies: Cataracts, Ears - Hearing aids Neurological Medical History: Reports: Other - Spinal cord injury Denies: Hemorrhagic CVA, Ischemic CVA, Seizures Endocrine Medical History: Reports: Diabetes Mellitus Type 2 Denies: Diabetes Mellitus Type 1, Hyperthyroidism, Hypothyroidism Renal/ Medical History: Reports: Nephrolithiasis Denies: Chronic Kidney Disease Malignancy Medical History: Reports: None GI Medical History: Denies: Cirrhosis, Crohn's Disease, Hepatitis, Peptic Ulcer Disease, Ulcerative Colitis Musculoskeltal Medical History: Denies: Arthritis, Gout Skin Medical History: Denies: Eczema, Psoriasis Psychiatric Medical History: Reports: Tobacco Dependency Denies: Alcohol Dependency, Substance Abuse Traumatic Medical History: Reports: Other - Spinal cord injury Hematology: Denies: Anemia, Bleeding Tendencies Infectious Medical History: Reports: None Past Surgical History Past Surgical History: Reports: Orthopedic Surgery - Spinal surgery related to accidental injury, he also has a bladder stimulator.) Social History Information Source: Patient Lives with: Alone Smoking Status: Former Smoker Frequency of Alcohol Use: None Hx Recreational Drug Use: No Drugs: None Hx Prescription Drug Abuse: No - Advance Directive Resuscitation Status: Full Code Surrogate healthcare decision maker:: Ruben Caldwell Family History Family History: DM, Hypertension, Other - Congestive heart failure, asthma Parental Family History Reviewed: Yes Children Family History Reviewed: No Sibling(s) Family History Reviewed.: Yes Medication/Allergy Home Medications: Furosemide [Lasix 40 mg Tablet] 40 mg PO DAILY 04/01/19 Ibuprofen [Advil] 200 mg PO Q4HP PRN 04/01/19 Oxycodone HCl/Acetaminophen [Percocet 10-325 mg Tablet] 1 tab PO Q8HP PRN 04/01/19 Allergies/Adverse Reactions: No Known Allergies Allergy (Verified 02/16/19 08:06) Review of Systems Constitutional: ABSENT: chills, fever(s) Eyes: ABSENT: visual disturbances, other - Eye pain Ears: ABSENT: hearing changes, other - Ear pain Nose, Mouth, and Throat: ABSENT: mouth pain, sore throat Cardiovascular: ABSENT: chest pain, palpitations Respiratory: ABSENT: cough, dyspnea Gastrointestinal: ABSENT: abdominal pain, constipation, diarrhea, nausea, vomiting Genitourinary: PRESENT: other - Decreased urinary output and dark urine. ABSENT: dysuria, hematuria Musculoskeletal: ABSENT: joint swelling, muscle weakness Integumentary: ABSENT: pruritus, rash Neurological: ABSENT: confusion, convulsions, focal weakness, memory loss, syncope Psychiatric: ABSENT: anxiety, depression Endocrine: ABSENT: cold intolerance, heat intolerance Hematologic/Lymphatic: ABSENT: easy bleeding, easy bruising Allergic/Immunologic: ABSENT: seasonal rhinorrhea PHYSICAL EXAMINATION: The patient is well-built and well-nourished. In no acute distress. Selected Entries 04/02/19 15:14 Temperature 97.4 F Temperature Oral Source Pulse Rate 111 H Respiratory 18 Rate Blood Pressure 110/67 Blood Pressure 81 Mean BP Location Right Arm BP Position Supine O2 Sat by Pulse 100 Oximetry Oxygen Flow 1.50 Rate Oxygen Delivery Nasal Cannula Method HEAD: Is atraumatic normocephalic. EYES: Pupils equal round regular reactive to light accommodation. Extraocular movements are normal. There is no conjunctival pallor. There is no scleral icterus. NOSE: There is no deviated nasal septum. There is no inflammation of the nasal mucous membrane. MOUTH: Mucous memories of the mouth are moist. Tongue is moist. There is no ulcers. There is no bleeding from the gums. THROAT: There is no redness of the oropharynx. There is no exudates. SKIN: There is no skin rashes or skin lesions. There is no ecchymosis or petechiae. NECK: Is supple. There is mild JVD still present. Carotids are equal there is no bruit there is no lymph adenopathy. There is no goiter. There is no accessory muscle respiration use. There is no chest wall tenderness. Trachea central. LUNGS: Shows a few bibasilar fine rales of CHF. There is no rhonchi or wheezing. HEART: S1-S2 is heard. S1 is of normal intensity. There is no S3 gallop. There is no S4 gallop. There is murmur of mitral regurgitation and tricuspid regurgitation present. There is aortic sclerosis murmur. There is no rub. ABDOMEN: Soft. Nontender. There is no hepatospleno megaly. Bowel sounds are well heard. EXTREMITIES: Femorals are well felt. There is no femoral bruits. Leg pulses are well felt. There is trace to mild pedal edema bilaterally. There is no DVT or cellulitis. There is no calf tenderness. BODY SHOP MANAGER: The patient is conscious awake alert oriented x3 with no focal deficits. PSYCHIATRIC: The patient judgment insight are intact his affect is normal. Current Medications Generic Name Dose Route Start Last Admin Trade Name Freq PRN Reason Stop Dose Admin Acetaminophen 650 mg 04/01/19 20:10 Tylenol 325 Mg Tablet PO 05/01/19 20:09 Q4HP PRN For headache, pain or fever Al Hydrox/Mg Hydrox/Simethicone 30 ml 04/01/19 19:59 Maalox Plus Susp 30 Udcup PO 05/01/19 19:58 Q6HP PRN HEARTBURN Carvedilol 6.25 mg 04/03/19 22:00 Coreg 6.25 Mg Tablet PO 05/03/19 21:59 Q12 KAYLEN Dextrose 12.5 gm 04/01/19 20:31 Dextrose Inj 50% Syringe (25 Gm/50 Ml) IV 05/01/19 20:30 PRN PRN FOR BG 50-69 IN ALERT PATIENT Protocol Dextrose 25 gm 04/01/19 20:31 Dextrose Inj 50% Syringe (25 Gm/50 Ml) IV 05/01/19 20:30 PRN PRN PER PROTOCOL Protocol Docusate Sodium 100 mg 04/02/19 10:00 04/03/19 17:05 Colace 100 Mg Capsule PO 05/02/19 09:59 Not Given BID KAYLEN Glucagon 1 mg 04/01/19 20:31 Glucagen Inj 1 Mg Vial IM 05/01/19 20:30 PRN PRN Evaluate for BG < 70 Protocol Glucose 15 gm 04/01/19 20:31 Glutose 40% Gel 15 Gm Tube PO 05/01/19 20:30 PRN PRN FOR BG 50-69 IN ALERT PATIENT Protocol Glucose 30 gm 04/01/19 20:31 Glutose 40% Gel 15 Gm Tube PO 05/01/19 20:30 PRN PRN FOR BG < 50 IN ALERT PATIENT Protocol Heparin Sodium (Porcine) 5,000 unit 04/01/19 22:00 04/03/19 14:19 Heparin Inj 5,000 Units/Ml 1 Ml Vial SUBCUT 05/01/19 21:59 5,000 unit Q8 KAYLEN Administration Hydralazine HCl 20 mg 04/01/19 20:10 Apresoline Inj/Pf 20 Mg/1 Ml Sdv IV 05/01/19 20:09 Q4HP PRN Give For Sbp > 160 / Dbp > 100 Insulin Human Regular 0 - 15 unit 04/01/19 20:31 Humulin R (Pyxis) Insulin 100 Unit/Ml 3ml SUBCUT 05/01/19 20:30 ACHSP PRN PER PROTOCOL Protocol Lisinopril 10 mg 04/03/19 22:00 Prinivil 10 Mg Tablet PO 05/03/19 21:59 Q12 KAYLEN Magnesium Hydroxide 30 ml 04/01/19 19:59 Milk Of Magnesia 30 Ml Udcup PO 05/01/19 19:58 HSP PRN FOR CONSTIPATION Ondansetron HCl 4 mg 04/03/19 15:00 Zofran Inj/Pf 4 Mg/2 Ml Sdv IV 05/01/19 19:58 Q4HP PRN FOR NAUSEA/VOMITING Pantoprazole Sodium 40 mg 04/02/19 06:00 04/03/19 17:[address] Tablet PO 05/02/19 05:59 40 mg BID@0600,1700 KAYLEN Administration Sodium Chloride 2.5 ml 04/01/19 22:00 04/03/19 13:20 Saline Flush 2.5 Ml Monoject Prefil Syrin IV 05/01/19 21:59 Not Given Q8 KAYLEN Zolpidem Tartrate 10 mg 04/01/19 19:59 Ambien 5 Mg Tablet PO 04/08/19 19:58 HSP PRN SLEEP OR INSOMNIA Discontinued Medications Generic Name Start Last Admin Trade Name Stop Dose Admin Furosemide 04/01/19 15:57 04/01/19 16:04 Lasix Inj/Pf 40 Mg/4 Ml Sdv 04/01/19 15:58 40 mg Administration Furosemide 04/01/19 15:44 04/01/19 16:44 Lasix Inj/Pf 40 Mg/4 Ml Sdv 04/01/19 15:45 Not Given Furosemide 04/02/19 10:00 04/02/19 21:14 Lasix Inj/Pf 40 Mg/4 Ml Sdv 05/02/19 09:59 40 mg Administration Furosemide 04/03/19 14:00 04/03/19 14:19 Lasix Inj/Pf 40 Mg/4 Ml Sdv 05/03/19 13:59 40 mg Administration Furosemide 04/04/19 10:00 Lasix Inj/Pf 40 Mg/4 Ml Sdv 05/04/19 09:59 Furosemide 250 mg/ Sodium 04/01/19 20:36 04/02/19 11:48 Chloride 05/01/19 20:35 Infused Infusion Nalbuphine HCl 04/01/19 20:42 Nubain Inj 10 Mg/1 Ml Ampule 04/08/19 20:41 Nalbuphine HCl 04/01/19 20:43 Nubain Inj 10 Mg/1 Ml Ampule 04/08/19 20:42 Ondansetron HCl 04/01/19 19:59 Zofran Inj/Pf 4 Mg/2 Ml Sdv 05/01/19 19:58 Labs- Entire Visit 04/01/19 04/01/19 04/01/19 14:30 14:30 14:30 WBC 7.1 RBC 4.97 Hgb 12.0 L Hct 38.4 MCV 77 L MCH 24.2 L MCHC 31.3 L RDW 18.5 H Plt Count 247 Lymph % (Auto) 26.7 [place] % (Auto) 11.0 Eos % (Auto) 0.8 Baso % (Auto) 1.3 Absolute Neuts (auto) 4.2 Absolute Lymphs (auto) 1.9 Absolute Monos (auto) 0.8 Absolute Eos (auto) 0.1 Absolute Basos (auto) 0.1 Seg Neutrophils % 60.2 PT INR APTT Sodium 138.2 Potassium 4.7 Chloride 103 Carbon Dioxide 25 Anion Gap 10 BUN 25 H Creatinine 1.48 H Est GFR ( Amer) 59 L Est GFR (MDRD) Non-Af 49 L Glucose 113 H POC Glucose Hemoglobin A1c % Calcium 9.4 Magnesium Total Bilirubin 2.6 H Direct Bilirubin 1.4 H Neonat Total Bilirubin Not Reportable Neonat Direct Bilirubin Not Reportable Neonat Indirect Bili Not Reportable AST 38 ALT 37 Alkaline Phosphatase 136 H Creatine Kinase 287 H CK-MB (CK-2) 3.56 Troponin I NT-Pro-B Natriuret Pep Total Protein 6.9 Albumin 3.8 Triglycerides Cholesterol LDL Cholesterol Direct VLDL Cholesterol HDL Cholesterol Lipase 38.1 TSH Free T4 Free T3 pg/mL Urine Color Urine Appearance Urine pH Ur Specific D Hanis Urine Protein Urine Glucose (UA) Urine Ketones Urine Blood Urine Nitrite Urine Bilirubin Urine Urobilinogen Ur Leukocyte Esterase Urine WBC (Auto) Urine RBC (Auto) U Hyaline Cast (Auto) Squamous Epi Cells Auto Urine Mucus (Auto) Urine Ascorbic Acid 04/01/19 04/01/19 04/01/19 16:11 18:33 20:49 WBC RBC Hgb Hct MCV MCH MCHC RDW Plt Count Lymph % (Auto) [place] % (Auto) Eos % (Auto) Baso % (Auto) Absolute Neuts (auto) Absolute Lymphs (auto) Absolute Monos (auto) Absolute Eos (auto) Absolute Basos (auto) Seg Neutrophils % PT 18.5 H INR 1.52 APTT 34.5 Sodium Potassium Chloride Carbon Dioxide Anion Gap BUN Creatinine Est GFR ( Amer) Est GFR (MDRD) Non-Af Glucose POC Glucose Hemoglobin A1c % Calcium Magnesium Total Bilirubin Direct Bilirubin Neonat Total Bilirubin Neonat Direct Bilirubin Neonat Indirect Bili AST ALT Alkaline Phosphatase Creatine Kinase CK-MB (CK-2) 3.20 Troponin I 0.029 NT-Pro-B Natriuret Pep 9060 H Total Protein Albumin Triglycerides Cholesterol LDL Cholesterol Direct VLDL Cholesterol HDL Cholesterol Lipase TSH Free T4 Free T3 pg/mL Urine Color JEREMIAH Urine Appearance SLIGHTLY-CLOUDY Urine pH 5.0 Ur Specific D Hanis 1.026 Urine Protein 30 H Urine Glucose (UA) NEGATIVE Urine Ketones NEGATIVE Urine Blood NEGATIVE Urine Nitrite NEGATIVE Urine Bilirubin SMALL H Urine Urobilinogen 4.0 H Ur Leukocyte Esterase NEGATIVE Urine WBC (Auto) 2 Urine RBC (Auto) 0 U Hyaline Cast (Auto) 10 Squamous Epi Cells Auto 1 Urine Mucus (Auto) RARE Urine Ascorbic Acid NEGATIVE 04/01/19 04/01/19 04/01/19 20:49 20:49 20:49 WBC RBC Hgb Hct MCV MCH MCHC RDW Plt Count Lymph % (Auto) [place] % (Auto) Eos % (Auto) Baso % (Auto) Absolute Neuts (auto) Absolute Lymphs (auto) Absolute Monos (auto) Absolute Eos (auto) Absolute Basos (auto) Seg Neutrophils % PT INR APTT Sodium 138.4 Potassium 4.9 Chloride 102 Carbon Dioxide 25 Anion Gap 11 BUN 26 H Creatinine 1.56 H Est GFR ( Amer) 56 L Est GFR (MDRD) Non-Af 46 L Glucose 107 POC Glucose Hemoglobin A1c % Calcium 9.6 Magnesium Total Bilirubin Direct Bilirubin Neonat Total Bilirubin Neonat Direct Bilirubin Neonat Indirect Bili AST ALT Alkaline Phosphatase Creatine Kinase 284 H CK-MB (CK-2) Troponin I NT-Pro-B Natriuret Pep Total Protein Albumin Triglycerides Cholesterol LDL Cholesterol Direct VLDL Cholesterol HDL Cholesterol Lipase TSH 2.12 Free T4 1.52 Free T3 pg/mL 3.38 Urine Color Urine Appearance Urine pH Ur Specific D Hanis Urine Protein Urine Glucose (UA) Urine Ketones Urine Blood Urine Nitrite Urine Bilirubin Urine Urobilinogen Ur Leukocyte Esterase Urine WBC (Auto) Urine RBC (Auto) U Hyaline Cast (Auto) Squamous Epi Cells Auto Urine Mucus (Auto) Urine Ascorbic Acid 04/01/19 04/02/19 04/02/19 23:03 02:57 02:57 WBC RBC Hgb Hct MCV MCH MCHC RDW Plt Count Lymph % (Auto) [place] % (Auto) Eos % (Auto) Baso % (Auto) Absolute Neuts (auto) Absolute Lymphs (auto) Absolute Monos (auto) Absolute Eos (auto) Absolute Basos (auto) Seg Neutrophils % PT INR APTT Sodium 137.9 Potassium 4.6 Chloride 102 Carbon Dioxide 21 L Anion Gap 15 BUN 26 H Creatinine 1.62 H Est GFR ( Amer) 53 L Est GFR (MDRD) Non-Af 44 L Glucose 126 H POC Glucose 102 Hemoglobin A1c % Calcium 9.3 Magnesium Total Bilirubin Direct Bilirubin Neonat Total Bilirubin Neonat Direct Bilirubin Neonat Indirect Bili AST ALT Alkaline Phosphatase Creatine Kinase 290 H CK-MB (CK-2) 2.65 Troponin I 0.035 NT-Pro-B Natriuret Pep Total Protein Albumin Triglycerides Cholesterol LDL Cholesterol Direct VLDL Cholesterol HDL Cholesterol Lipase TSH Free T4 Free T3 pg/mL Urine Color Urine Appearance Urine pH Ur Specific D Hanis Urine Protein Urine Glucose (UA) Urine Ketones Urine Blood Urine Nitrite Urine Bilirubin Urine Urobilinogen Ur Leukocyte Esterase Urine WBC (Auto) Urine RBC (Auto) U Hyaline Cast (Auto) Squamous Epi Cells Auto Urine Mucus (Auto) Urine Ascorbic Acid 04/02/19 04/02/19 04/02/19 02:57 02:57 02:57 WBC 7.8 RBC 5.02 Hgb 12.0 L Hct 38.7 MCV 77 L MCH 23.9 L MCHC 31.1 L RDW 18.3 H Plt Count 256 Lymph % (Auto) [place] % (Auto) Eos % (Auto) Baso % (Auto) Absolute Neuts (auto) Absolute Lymphs (auto) Absolute Monos (auto) Absolute Eos (auto) Absolute Basos (auto) Seg Neutrophils % PT INR APTT Sodium Potassium Chloride Carbon Dioxide Anion Gap BUN Creatinine Est GFR ( Amer) Est GFR (MDRD) Non-Af Glucose POC Glucose Hemoglobin A1c % 6.1 H Calcium Magnesium 2.0 Total Bilirubin Direct Bilirubin Neonat Total Bilirubin Neonat Direct Bilirubin Neonat Indirect Bili AST ALT Alkaline Phosphatase Creatine Kinase CK-MB (CK-2) Troponin I NT-Pro-B Natriuret Pep Total Protein Albumin Triglycerides 60 Cholesterol 129.20 LDL Cholesterol Direct 103 H VLDL Cholesterol 12.0 HDL Cholesterol 26 L Lipase TSH Free T4 Free T3 pg/mL Urine Color Urine Appearance Urine pH Ur Specific D Hanis Urine Protein Urine Glucose (UA) Urine Ketones Urine Blood Urine Nitrite Urine Bilirubin Urine Urobilinogen Ur Leukocyte Esterase Urine WBC (Auto) Urine RBC (Auto) U Hyaline Cast (Auto) Squamous Epi Cells Auto Urine Mucus (Auto) Urine Ascorbic Acid 04/02/19 04/02/19 04/02/19 07:22 10:13 10:13 WBC RBC Hgb Hct MCV MCH MCHC RDW Plt Count Lymph % (Auto) [place] % (Auto) Eos % (Auto) Baso % (Auto) Absolute Neuts (auto) Absolute Lymphs (auto) Absolute Monos (auto) Absolute Eos (auto) Absolute Basos (auto) Seg Neutrophils % PT INR APTT Sodium 137.7 Potassium 4.2 Chloride 100 Carbon Dioxide 25 Anion Gap 13 BUN 27 H Creatinine 1.71 H Est GFR ( Amer) 50 L Est GFR (MDRD) Non-Af 41 L Glucose 126 H POC Glucose 106 Hemoglobin A1c % Calcium 9.3 Magnesium Total Bilirubin Direct Bilirubin Neonat Total Bilirubin Neonat Direct Bilirubin Neonat Indirect Bili AST ALT Alkaline Phosphatase Creatine Kinase 266 H CK-MB (CK-2) 2.40 Troponin I 0.035 NT-Pro-B Natriuret Pep Total Protein Albumin Triglycerides Cholesterol LDL Cholesterol Direct VLDL Cholesterol HDL Cholesterol Lipase TSH Free T4 Free T3 pg/mL Urine Color Urine Appearance Urine pH Ur Specific D Hanis Urine Protein Urine Glucose (UA) Urine Ketones Urine Blood Urine Nitrite Urine Bilirubin Urine Urobilinogen Ur Leukocyte Esterase Urine WBC (Auto) Urine RBC (Auto) U Hyaline Cast (Auto) Squamous Epi Cells Auto Urine Mucus (Auto) Urine Ascorbic Acid 04/02/19 04/02/19 04/02/19 12:32 14:57 15:13 WBC RBC Hgb Hct MCV MCH MCHC RDW Plt Count Lymph % (Auto) [place] % (Auto) Eos % (Auto) Baso % (Auto) Absolute Neuts (auto) Absolute Lymphs (auto) Absolute Monos (auto) Absolute Eos (auto) Absolute Basos (auto) Seg Neutrophils % PT INR APTT Sodium 136.3 L Potassium 4.0 Chloride 99 Carbon Dioxide 28 Anion Gap 9 BUN 28 H Creatinine 1.71 H Est GFR ( Amer) 50 L Est GFR (MDRD) Non-Af 41 L Glucose 124 H POC Glucose 125 H 125 H Hemoglobin A1c % Calcium 9.1 Magnesium Total Bilirubin Direct Bilirubin Neonat Total Bilirubin Neonat Direct Bilirubin Neonat Indirect Bili AST ALT Alkaline Phosphatase Creatine Kinase CK-MB (CK-2) Troponin I NT-Pro-B Natriuret Pep Total Protein Albumin Triglycerides Cholesterol LDL Cholesterol Direct VLDL Cholesterol HDL Cholesterol Lipase TSH Free T4 Free T3 pg/mL Urine Color Urine Appearance Urine pH Ur Specific D Hanis Urine Protein Urine Glucose (UA) Urine Ketones Urine Blood Urine Nitrite Urine Bilirubin Urine Urobilinogen Ur Leukocyte Esterase Urine WBC (Auto) Urine RBC (Auto) U Hyaline Cast (Auto) Squamous Epi Cells Auto Urine Mucus (Auto) Urine Ascorbic Acid 04/02/19 04/02/19 20:59 21:12 WBC RBC Hgb Hct MCV MCH MCHC RDW Plt Count Lymph % (Auto) [place] % (Auto) Eos % (Auto) Baso % (Auto) Absolute Neuts (auto) Absolute Lymphs (auto) Absolute Monos (auto) Absolute Eos (auto) Absolute Basos (auto) Seg Neutrophils % PT INR APTT Sodium 136.1 L Potassium 3.7 Chloride 98 Carbon Dioxide 28 Anion Gap 10 BUN 27 H Creatinine 1.75 H Est GFR ( Amer) 49 L Est GFR (MDRD) Non-Af 40 L Glucose 119 H POC Glucose 118 H Hemoglobin A1c % Calcium 8.9 Magnesium Total Bilirubin Direct Bilirubin Neonat Total Bilirubin Neonat Direct Bilirubin Neonat Indirect Bili AST ALT Alkaline Phosphatase Creatine Kinase CK-MB (CK-2) Troponin I NT-Pro-B Natriuret Pep Total Protein Albumin Triglycerides Cholesterol LDL Cholesterol Direct VLDL Cholesterol HDL Cholesterol Lipase TSH Free T4 Free T3 pg/mL Urine Color Urine Appearance Urine pH Ur Specific D Hanis Urine Protein Urine Glucose (UA) Urine Ketones Urine Blood Urine Nitrite Urine Bilirubin Urine Urobilinogen Ur Leukocyte Esterase Urine WBC (Auto) Urine RBC (Auto) U Hyaline Cast (Auto) Squamous Epi Cells Auto Urine Mucus (Auto) Urine Ascorbic Acid Chest X-Ray 04/01/19 00:00 IMPRESSION: Small right pleural effusion with right lower lobe infiltrate either atelectasis or pneumonia. Venous Doppler Study 04/01/19 15:44 IMPRESSION: NO EVIDENCE DVT OR SVT IN EITHER LEG. The patient's echocardiogram: Shows LV enlargement with a severely reduced LV ejection fraction of 25%. There is moderate to severe tricuspid regurgitation with severe pulmonary hypertension. There is significant mitral regurgitation. EKG on 04/01/2019.: SINUS TACHYCARDIA [AN] . LEFT ATRIAL ABNORMALITY [LAFB] . LEFT ANTERIOR FASCICULAR BLOCK [LVH1] . LEFT VENTRICULAR HYPERTROPHY IMPRESSION/RECOMMENDATION: 1. Acute on chronic systolic heart failure. The patient has acute left ventricular and right ventricle systolic heart failure. 2. Cardiomyopathy: Severely depressed LV ejection fraction. We will start the patient on Coreg and also PEMA inhibitor and increase as tolerated. We will watch the patient's renal function. Will prescribe LifeVest for the patient in view of the patient's history of palpitations, although no arrhythmia seen in this monitor the patient's LV function is severely depressed. Also discussed with the patient that the echocardiogram needs to be repeated in 3 months, and if the EF is 35% or below then the patient will be referred for possible AICD placement. Later as an outpatient we will get a IV Lexiscan Cardiolite stress test. 3. Severe pulmonary hypertension. 4. History of hypertension: Will start the patient on PEMA inhibitor and beta-bl ocker. 5. Diabetes mellitus: Continue current therapy and Accu-Cheks. 6. Chronic kidney disease: Most likely secondary to chronic use of nonsteroidal inflammatory agent, and also the influence of hepatorenal syndrome on the kidneys. Hopefully this will improve with improvement in the patient's LV function. The patient has been advised to stop taking Advil. Note nephrology on the case. 7. History of palpitations: At present no arrhythmia seen on the monitor. The patient will be advised to have a LifeVest placed. 8. Chronic back pain secondary to spinal cord injury and history of back lopez rgery in the past. If this continues patient may require pain management so that he avoids nonsteroidal anti-inflammatory agents to deal with this pain. EKG and echo findings discussed with the patient. Medical decision making is of high complexity. Medications reviewed. New medications added. Management plan and medication treatment discussed with attending provider on the case. Medical decision making is of high complexity. 60 minutes spent on this patient with more than 50% of time spent direct patient care. Will follow. Prescription for LifeVest faxed to [facility]. Reason is newly diagnosed cardiomyopathy with severely depressed LV ejection fraction and history of palpitations.
[2019-04-02 21:56] LABS: ANION GAP 10 (5-19); BLOOD UREA NITROGEN 27 mg/dL (7-20); CALCIUM 8.9 mg/dL (8.4-10.2); CARBON DIOXIDE 28 mmol/L (22-30); CHLORIDE 98 mmol/L (98-107); GLUCOSE 119 mg/dL (75-110); POTASSIUM 3.7 mmol/L (3.6-5.0)
--- NOTE | 2019-04-03 00:11 | XCELERA REPORT ---
[address] [address] Transthoracic Echocardiogram Report Name: ALANNA SAHU Age: 59 yrs Gender: Male : 1960 Patient Status: Inpatient Patient Location: [address] [place], [place] [id number] Study Date: 04/02/2019 11:39 AM Height: 68 in Weight: 170 lb BSA: 1.9 m2 Procedure: A two-dimensional transthoracic echocardiogram with color flow and Doppler was performed. Study Quality: Good. Reason For Study: acute chf History: CHF. Ordering Physician: TIP MONTERROSO Performed By: Leda Wagoner Interpretation Summary The left ventricle is moderately to severly dilated. There is normal left ventricular wall thickness. LV EF is 25% Left ventricular systolic function is severely reduced. There is severe global hypokinesis of the left ventricle. There is no thrombus. There is no ventricular septal defect visualized. Paradoxical septal motion is consistent with right ventricular volume overload The right ventricle is moderate to severely dilated. The right ventricular systolic function is moderate to severely reduced. The right atrium is mildly dilated. The left atrium is mildly dilated. The interatrial septum is intact with no evidence for an atrial septal defect. There is no Doppler evidence for an interatrial shunt There is mild mitral annular calcification. There is mild mitral leaflet calcification. There is no evidence of mitral valve prolapse. There is no vegetation seen on the mitral valve. There is no mitral valve stenosis. There is a severe amount of mitral regurgitation There is no aortic valvular vegetation. There is no aortic valve stenosis There is aortic sclerosis without aortic stenosis. There is no LVOT obstruction. There is no tricuspid stenosis. There is a moderate to severe amount of tricuspid regurgitation There is servere pulmonary hypertension by echo RVSP is at least 65 mm of Hg , with RA mean ghreater than 20. There is no pulmonic valvular stenosis. There is a mild to moderate amount of pulmonic regurgitation The aortic root is normal size. The inferior vena cava appeared dilated and did not change with respiration (RAP > 20 mmHg) There is no pericardial effusion. MMode/2D Measurements & Calculations RVDd: 4.8 cm LVIDd: 6.1 cm FS: 16.1 % Ao root diam: 2.5 cm IVSd: 0.76 cm LVIDs: 5.1 cm EDV(Teich): 188.3 ml Ao root area: 5.1 cm2 LVPWd: 0.81 cm ESV(Teich): 125.7 ml LA dimension: 3.9 cm EF(Teich): 33.2 % Doppler Measurements & Calculations MV E max letha: MV P1/2t max letha: Ao V2 max: LV V1 max P.5 cm/sec 83.3 cm/sec 93.1 cm/sec 2.7 mmHg MV A max letha: MV P1/2t: 30.4 msec Ao max PG: LV V1 max: 48.2 cm/sec MVA(P1/2t): 7.2 cm2 3.5 mmHg 81.8 cm/sec MV E/A: 1.7 MV dec slope: 801.3 cm/sec2 MV dec time: 0.10 sec PA V2 max: PI end-d letha: TR max letha: MV P1/2t-pr_phl: 60.2 cm/sec 174.8 cm/sec 335.5 cm/sec 30.4 msec PA max PG: TR max P.5 mmHg 45.0 mmHg Left Ventricle The left ventricle is moderately to severly dilated. There is normal left ventricular wall thickness. LV EF is 25%. Left ventricular systolic function is severely reduced. There is severe global hypokinesis of the left ventricle. Paradoxical septal motion is consistent with right ventricular volume overload. There is no thrombus. There is no ventricular septal defect visualized. Right Ventricle The right ventricle is moderate to severely dilated. The right ventricular systolic function is moderate to severely reduced. Atria The right atrium is mildly dilated. The left atrium is mildly dilated. The interatrial septum is intact with no evidence for an atrial septal defect. There is no Doppler evidence for an interatrial shunt. Mitral Valve There is mild mitral annular calcification. There is mild mitral leaflet calcification. There is no evidence of mitral valve prolapse. There is no vegetation seen on the mitral valve. There is no mitral valve stenosis. There is a severe amount of mitral regurgitation. Aortic Valve There is no aortic valvular vegetation. There is no aortic valve stenosis. There is aortic sclerosis without aortic stenosis. There is no LVOT obstruction. No aortic regurgitation is present. Tricuspid Valve There is no tricuspid stenosis. There is a moderate to severe amount of tricuspid regurgitation. There is servere pulmonary hypertension by echo. RVSP is at least 65 mm of Hg , with RA mean ghreater than 20. Pulmonic Valve There is no pulmonic valvular stenosis. There is a mild to moderate amount of pulmonic regurgitation. Great Vessels The aortic root is normal size. The inferior vena cava appeared dilated and did not change with respiration (RAP > 20 mmHg). Effusions There is no pericardial effusion. : TIP MONTERROSO Lakshmi
[2019-04-03 03:11] LABS: HEMATOCRIT 37.1 % (37.9-51.0); HEMOGLOBIN 11.7 g/dL (13.5-17.0); MEAN CORPUSCULAR HEMOGLOBIN 24.1 pg (27.0-33.4); MEAN CORPUSCULAR HGB CONC 31.5 g/dL (32.0-36.0); MEAN CORPUSCULAR VOLUME 76 fl (80-97); PLATELET COUNT 243 10^3/uL (150-450); RED BLOOD COUNT 4.85 10^6/uL (4.35-5.55); RED CELL DISTRIBUTION WIDTH 18.3 % (11.5-14.0)
[2019-04-03 03:27] LABS: ANION GAP 11 (5-19); BLOOD UREA NITROGEN 27 mg/dL (7-20); CALCIUM 8.9 mg/dL (8.4-10.2); CARBON DIOXIDE 26 mmol/L (22-30); CHLORIDE 99 mmol/L (98-107); GLUCOSE 105 mg/dL (75-110); POTASSIUM 3.8 mmol/L (3.6-5.0)
[2019-04-03] MEDS: HEPARIN SOD (PORCINE) 5,000 UNIT/ML 1 ML VIAL SUBCUT SCH ×3 (05:08→22:48)
[2019-04-03] MEDS: PANTOPRAZOLE SODIUM 40 MG TABLET.DR PO SCH ×2 (05:08→17:08)
--- NOTE | 2019-04-03 09:01 | RADIOLOGY REPORT (SQ) ---
EXAM DESCRIPTION: U/S RETROPERITON (RENAL/AORTA) COMPLETED DATE/TIME: 04/03/2019 6:12 am REASON FOR STUDY: isaias I50.811 ACUTE RIGHT HEART FAILURE E08.9 DIABETES DUE TO UNDERLYING CONDITION W/O COMPLICATIONS COMPARISON: None. TECHNIQUE: Dynamic and static grayscale images acquired of the kidneys and bladder and recorded on P ACS. Additional selected color Doppler and spectral images recorded. LIMITATIONS: None. FINDINGS: RIGHT KIDNEY: Normal size. Normal echogenicity. No solid or suspicious masses. No hydronep hrosis. No calcifications. LEFT KIDNEY: Normal size. Normal echogenicity. No solid or suspicious masses. No hydronephrosis. No calcifications. BLADDER: No masses. OTHER FINDINGS: No other significant finding. IMPRESSION: NORMAL RENAL AND BLADDER ULTRASOUND. TECHNICAL DOCUMENTATION: JOB ID: [id number] [employer]- All Rights Reserved Reading location - IP/workstation name: [email or web address]
--- NOTE | 2019-04-03 09:31 | PDOC PROGRESS REPORT ---
Subjective Progress Note for:: 04/03/19 Subjective:: 59 year old male who presented to the emergency room with a 8-day history of edema. Patient admits that 8 days ago he began having increased swelling of his lower extremities which is been gradually spreading up to his waist. The swelling is accompanied by severe orthopnea and the sensation of a constantly present, moderately intense, aching throbbing pressure in both of his lower extremities without radiation. He normally walks with a walker but his legs have been so heavy and swollen that he is not been able to walk and has been wheelchair-bound for the last several days. He was seen by his primary care provider and started on Lasix 1 week ago however his symptoms have continued to worsen rather than improve. He acknowledges accompanying decreased urinary output and dark urine when he does pass urine. He denies prior similar symptoms and has not identified any aggravating or ameliorating factors for his swelling. In the emergency room he was found to have a mildly elevated BUN and creatinine and a negative venous Doppler study of the bilateral lower extremities. Chest x-ray revealed mild cardiomegaly and a small pleural effusion. Patient was subsequently admitted to the hospital for further evaluation treatment. 04/02/[id number]-uyrm-old male admitted with bilateral lower extremity edema BNP at the time of admission is more than 9000 chest x-ray shows small right pleural effusion and questionable right lower lobe infiltrate. Patient says he is feeling much better. He was on Lasix drip. He is peeing a lot. But there is a concern about a penile implant so the Matias's catheter was not placed but according to the patient he has a bladder bladder stimulator do not have panel stimulator. But we could hold off on placing Matias's catheter at this moment. No acute events since admission. Afebrile. Patient states he is breathing better today. 04/03/2019-no acute events in the last 24 hours. Patient is afebrile. Echocardiogram was done found to have a severe cardiomyopathy with EF of less than 25%. Patient is presently on Lasix 25 mg P.o. 3 times daily. Nephrology consult was requested. Cardiology on board probably he need a LifeVest. Reason For Visit: ACUTE CONGESTIVE HEART FAILURE Physical Exam Vital Signs: Temp Pulse Resp BP Pulse Ox 98.9 F 105 H 18 96/69 L 98 04/03/19 02:58 04/03/19 07:00 04/03/19 02:58 04/03/19 02:58 04/03/19 02:58 Intake & Output 04/02/19 04/03/19 04/04/19 06:59 06:59 06:59 Intake Total 0 1110 Output Total 550 Balance -550 1110 Weight 77.5 kg 77.4 kg General appearance: PRESENT: no acute distress, cooperative Head exam: PRESENT: atraumatic Eye exam: PRESENT: PERRLA Mouth exam: PRESENT: moist, tongue midline Teeth exam: PRESENT: poor dentation Neck exam: ABSENT: carotid bruit, JVD, lymphadenopathy, thyromegaly Respiratory exam: PRESENT: decreased breath sounds Cardiovascular exam: PRESENT: RRR. ABSENT: diastolic murmur, rubs, systolic murmur GI/Abdominal exam: PRESENT: normal bowel sounds, soft. ABSENT: distended, guarding, mass, organolmegaly, rebound, tenderness Rectal exam: PRESENT: deferred Extremities exam: PRESENT: +1 edema Neurological exam: PRESENT: alert, awake, oriented to person, oriented to place, oriented to time, oriented to situation, CN II-XII grossly intact. ABSENT: motor sensory deficit Psychiatric exam: PRESENT: appropriate affect, normal mood. ABSENT: homicidal ideation, suicidal ideation Results Laboratory Results: 04/03/19 02:55 04/03/19 02:55 04/02/19 04/02/19 04/02/19 10:13 14:57 21:12 WBC RBC Hgb Hct MCV MCH MCHC RDW Plt Count Sodium 137.7 136.3 L 136.1 L Potassium 4.2 4.0 3.7 Chloride 100 99 98 Carbon Dioxide 25 28 28 Anion Gap 13 9 10 BUN 27 H 28 H 27 H Creatinine 1.71 H 1.71 H 1.75 H Est GFR ( Amer) 50 L 50 L 49 L Glucose 126 H 124 H 119 H Calcium 9.3 9.1 8.9 Magnesium 04/03/19 04/03/19 02:55 02:55 WBC 8.0 RBC 4.85 Hgb 11.7 L Hct 37.1 L MCV 76 L MCH 24.1 L MCHC 31.5 L RDW 18.3 H Plt Count 243 Sodium 136.1 L Potassium 3.8 Chloride 99 Carbon Dioxide 26 Anion Gap 11 BUN 27 H Creatinine 1.69 H Est GFR ( Amer) 51 L Glucose 105 Calcium 8.9 Magnesium 1.9 04/01/19 04/01/19 04/01/19 14:30 14:30 20:49 Creatine Kinase 287 H CK-MB (CK-2) 3.56 3.20 Troponin I 0.029 NT-Pro-B Natriuret Pep 9060 H 04/01/19 04/02/19 04/02/19 20:49 02:57 02:57 Creatine Kinase 284 H 290 H CK-MB (CK-2) 2.65 Troponin I 0.035 NT-Pro-B Natriuret Pep 04/02/19 04/02/19 04/03/19 10:13 10:13 02:55 Creatine Kinase 266 H CK-MB (CK-2) 2.40 Troponin I 0.035 NT-Pro-B Natriuret Pep 8350 H Impressions: Chest X-Ray 04/01/19 00:00 IMPRESSION: Small right pleural effusion with right lower lobe infiltrate either atelectasis or pneumonia. Venous Doppler Study 04/01/19 15:44 IMPRESSION: NO EVIDENCE DVT OR SVT IN EITHER LEG. Renal Ultrasound 04/03/19 00:00 IMPRESSION: NORMAL RENAL AND BLADDER ULTRASOUND. Assessment and Plan - Diagnosis (1) Acute congestive heart failure Qualifiers: Heart failure type: unspecified Qualified Code(s): I50.9 - Heart failure, unspecified Is this a current diagnosis for this admission?: Yes Plan: Patient be treated with a Lasix infusion for initial therapy. A cardiology consultation with Dr. Breen will be obtained. An echocardiogram will be obtained. Serial cardiac enzymes will be performed. A BNP will be obtained. Daily metabolic profiles will be obtained. 04/02/2019-patient denies any history of congestive heart failure is having this lower leg extremity edema for the last 1-1/2 weeks according to the patient is drinking a lot of juices and plenty of water for the last 2 weeks. We could put him on a fluid restriction 1500 cc/h and discontinue IV Lasix switch to Lasix 40 mg twice a day IV and to check daily weights and if possible to do the input output chart. Plan is to repeat the labs tomorrow and chest x-ray tomorrow. Cardiogram is pending. 04/03/2019-echocardiogram indicates severe cardiomyopathy with EF of less than 25% on Lasix 40 mg 3 times daily on fluid restriction 1200 cc/day edema is improving patient requires LifeVest. (2) JORGE A (acute kidney injury) Is this a current diagnosis for this admission?: Yes Plan: Patient's renal functions be monitored closely with daily metabolic profiles. Daily CBCs and magnesium levels will also be obtained. Consultation with nephrology will also be obtained with Dr. Gillespie. 04/02/2019-serum creatinine today is 1.62 the creatinine in October is 1.28. Consultation with Dr. Gillespie was requested. JORGE A may be secondary to CHF exacerbation. AKA may be contributing to his increased BNP. to arrange for the renal ultrasound today. 04/03/2019-serum creatinine today is 1.69 stable. Nephrology consult was requested. Renal ultrasound was normal. Patient is nonoliguric. JORGE A most likely secondary to CHF exacerbation. (3) Diabetes mellitus type 2 in nonobese Is this a current diagnosis for this admission?: Yes Plan: Hemoglobin A1c will be obtained and patient will be continued on his usual diabetic therapy and diet pending results. 04/02/2019-patient's hemoglobin A1c 6.1. Presently on insulin sliding scale before meals and at bedtime on carb diet. Compliance with medication was advised. 04/03/2019-patient's latest blood sugar is 105 stable. On insulin sliding scale. Plan is to continue the present management. (4) Hypertension Qualifiers: Hypertension type: essential hypertension Qualified Code(s): I10 - Essential (primary) hypertension Is this a current diagnosis for this admission?: Yes Plan: Patient's antihypertensive regiment will be adjusted in order to treat his congestive heart failure. 04/02/2019-patient has no history of congestive heart failure not on diuretics at home. Plan is to discontinue IV Lasix start on Lasix 40 mg IV twice a day and to hold off on PEMA inhibitors for until the kidney function is improved. 04/03/2019-patient blood pressures on the softer side latest blood pressure is 90/70. Plan is to closely monitor the blood pressure. (5) Pleural effusion Is this a current diagnosis for this admission?: Yes - Time Time Spent with patient: 25-34 minutes Medications reviewed and adjusted accordingly: Yes Anticipated discharge: Home
[2019-04-03] MEDS: DOCUSATE SODIUM 100 MG CAPSULE PO SCH ×2 (09:55→17:05)
[2019-04-03 10:09] LABS: ANION GAP 9 (5-19); BLOOD UREA NITROGEN 26 mg/dL (7-20); CALCIUM 8.7 mg/dL (8.4-10.2); CARBON DIOXIDE 27 mmol/L (22-30); CHLORIDE 100 mmol/L (98-107); GLUCOSE 144 mg/dL (75-110); POTASSIUM 3.8 mmol/L (3.6-5.0)
[2019-04-03] MEDS ORDERED: FUROSEMIDE INJ/PF 40 MG/4 ML SDV IV SCH (14:00)
[2019-04-03] MEDS ORDERED: ONDANSETRON HCL INJ/PF 4 MG/2 ML SDV IV PRN (15:00)
[2019-04-03 16:16] LABS: ANION GAP 11 (5-19); BLOOD UREA NITROGEN 26 mg/dL (7-20); CALCIUM 9.2 mg/dL (8.4-10.2); CARBON DIOXIDE 28 mmol/L (22-30); CHLORIDE 98 mmol/L (98-107); GLUCOSE 139 mg/dL (75-110)
--- NOTE | 2019-04-03 21:16 | Progress Note ---
Provider Note Provider Note: CARDIOLOGY PROGRESS NOTE BY Dr.Lakshmi Breen on 04/03/19. SUBJECTIVE: The patient denies any chest pain or discomfort. He states his shortness of breath is much improved. He has no PND orthopnea. He denies any palpitations. There is no atrial or ventricular arrhythmia seen on the monitor. His renal function still not back to normal and has mild Miguel improved GFR compared to yesterday. There is no leg edema. Physical EXAMINATION: The patient is well-built and well-nourished. In no acute distress. Selected Entries 04/03/19 04/03/19 02:58 12:32 Temperature 98.9 F 97.8 F Temperature Oral Oral Source Pulse Rate 110 H 104 H Respiratory 18 18 Rate Blood Pressure 96/69 L 122/77 Blood Pressure 78 92 Mean BP Location Left Arm Left Arm BP Position Supine Supine O2 Sat by Pulse 98 96 Oximetry Oxygen Delivery Room Air Room Air Method HEAD: Is atraumatic normocephalic. EYES: Pupils equal round regular reactive to light accommodation. Extraocular movements are normal. There is no conjunctival pallor. There is no scleral icterus. NOSE: There is no deviated nasal septum. There is no inflammation of the nasal mucous membrane. MOUTH: Mucous memories of the mouth are moist. Tongue is moist. There is no ulcers. There is no bleeding from the gums. THROAT: There is no redness of the oropharynx. There is no exudates. SKIN: There is no skin rashes or skin lesions. There is no ecchymosis or petechiae. NECK: Is supple. There is mild JVD still present. Carotids are equal there is no bruit there is no lymphadenopathy. There is no goiter. There is no accessory muscle respiration use. There is no chest wall tenderness. Trachea central. LUNGS: Shows a few bibasilar fine rales of CHF. There is no rhonchi or wheezing. HEART: S1-S2 is heard. S1 is of normal intensity. There is no S3 gallop. There is no S4 gallop. There is murmur of mitral regurgitation and tricuspid regurgitation present. There is aortic sclerosis murmur. There is no rub. ABDOMEN: Soft. Nontender. There is no hepatospleno megaly. Bowel sounds are well heard. EXTREMITIES: Femorals are well felt. There is no femoral bruits. Leg pulses are well felt. There is no pedal edema bilaterally. There is no DVT or cellulitis. There is no calf tenderness. STATIC BALANCER: The patient is conscious awake alert oriented x3 with no focal deficits. PSYCHIATRIC: The patient judgment insight are intact his affect is normal. Labs- Entire Visit 04/01/19 04/01/19 04/01/19 14:30 14:30 14:30 WBC 7.1 RBC 4.97 Hgb 12.0 L Hct 38.4 MCV 77 L MCH 24.2 L MCHC 31.3 L RDW 18.5 H Plt Count 247 Lymph % (Auto) 26.7 [place] % (Auto) 11.0 Eos % (Auto) 0.8 Baso % (Auto) 1.3 Absolute Neuts (auto) 4.2 Absolute Lymphs (auto) 1.9 Absolute Monos (auto) 0.8 Absolute Eos (auto) 0.1 Absolute Basos (auto) 0.1 Seg Neutrophils % 60.2 PT INR APTT Sodium 138.2 Potassium 4.7 Chloride 103 Carbon Dioxide 25 Anion Gap 10 BUN 25 H Creatinine 1.48 H Est GFR ( Amer) 59 L Est GFR (MDRD) Non-Af 49 L Glucose 113 H POC Glucose Hemoglobin A1c % Calcium 9.4 Magnesium Total Bilirubin 2.6 H Direct Bilirubin 1.4 H Neonat Total Bilirubin Not Reportable Neonat Direct Bilirubin Not Reportable Neonat Indirect Bili Not Reportable AST 38 ALT 37 Alkaline Phosphatase 136 H Creatine Kinase 287 H CK-MB (CK-2) 3.56 Troponin I NT-Pro-B Natriuret Pep Total Protein 6.9 Albumin 3.8 Triglycerides Cholesterol LDL Cholesterol Direct VLDL Cholesterol HDL Cholesterol Lipase 38.1 TSH Free T4 Free T3 pg/mL Urine Color Urine Appearance Urine pH Ur Specific [place] Urine Protein Urine Glucose (UA) Urine Ketones Urine Blood Urine Nitrite Urine Bilirubin Urine Urobilinogen Ur Leukocyte Esterase Urine WBC (Auto) Urine RBC (Auto) U Hyaline Cast (Auto) Squamous Epi Cells Auto Urine Mucus (Auto) Urine Ascorbic Acid 04/01/19 04/01/19 04/01/19 16:11 18:33 20:49 WBC RBC Hgb Hct MCV MCH MCHC RDW Plt Count Lymph % (Auto) [place] % (Auto) Eos % (Auto) Baso % (Auto) Absolute Neuts (auto) Absolute Lymphs (auto) Absolute Monos (auto) Absolute Eos (auto) Absolute Basos (auto) Seg Neutrophils % PT 18.5 H INR 1.52 APTT 34.5 Sodium Potassium Chloride Carbon Dioxide Anion Gap BUN Creatinine Est GFR ( Amer) Est GFR (MDRD) Non-Af Glucose POC Glucose Hemoglobin A1c % Calcium Magnesium Total Bilirubin Direct Bilirubin Neonat Total Bilirubin Neonat Direct Bilirubin Neonat Indirect Bili AST ALT Alkaline Phosphatase Creatine Kinase CK-MB (CK-2) 3.20 Troponin I 0.029 NT-Pro-B Natriuret Pep 9060 H Total Protein Albumin Triglycerides Cholesterol LDL Cholesterol Direct VLDL Cholesterol HDL Cholesterol Lipase TSH Free T4 Free T3 pg/mL Urine Color JEREMIAH Urine Appearance SLIGHTLY-CLOUDY Urine pH 5.0 Ur Specific [place] 1.026 Urine Protein 30 H Urine Glucose (UA) NEGATIVE Urine Ketones NEGATIVE Urine Blood NEGATIVE Urine Nitrite NEGATIVE Urine Bilirubin SMALL H Urine Urobilinogen 4.0 H Ur Leukocyte Esterase NEGATIVE Urine WBC (Auto) 2 Urine RBC (Auto) 0 U Hyaline Cast (Auto) 10 Squamous Epi Cells Auto 1 Urine Mucus (Auto) RARE Urine Ascorbic Acid NEGATIVE 04/01/19 04/01/19 04/01/19 20:49 20:49 20:49 WBC RBC Hgb Hct MCV MCH MCHC RDW Plt Count Lymph % (Auto) [place] % (Auto) Eos % (Auto) Baso % (Auto) Absolute Neuts (auto) Absolute Lymphs (auto) Absolute Monos (auto) Absolute Eos (auto) Absolute Basos (auto) Seg Neutrophils % PT INR APTT Sodium 138.4 Potassium 4.9 Chloride 102 Carbon Dioxide 25 Anion Gap 11 BUN 26 H Creatinine 1.56 H Est GFR ( Amer) 56 L Est GFR (MDRD) Non-Af 46 L Glucose 107 POC Glucose Hemoglobin A1c % Calcium 9.6 Magnesium Total Bilirubin Direct Bilirubin Neonat Total Bilirubin Neonat Direct Bilirubin Neonat Indirect Bili AST ALT Alkaline Phosphatase Creatine Kinase 284 H CK-MB (CK-2) Troponin I NT-Pro-B Natriuret Pep Total Protein Albumin Triglycerides Cholesterol LDL Cholesterol Direct VLDL Cholesterol HDL Cholesterol Lipase TSH 2.12 Free T4 1.52 Free T3 pg/mL 3.38 Urine Color Urine Appearance Urine pH Ur Specific [place] Urine Protein Urine Glucose (UA) Urine Ketones Urine Blood Urine Nitrite Urine Bilirubin Urine Urobilinogen Ur Leukocyte Esterase Urine WBC (Auto) Urine RBC (Auto) U Hyaline Cast (Auto) Squamous Epi Cells Auto Urine Mucus (Auto) Urine Ascorbic Acid 04/01/19 04/02/19 04/02/19 23:03 02:57 02:57 WBC RBC Hgb Hct MCV MCH MCHC RDW Plt Count Lymph % (Auto) [place] % (Auto) Eos % (Auto) Baso % (Auto) Absolute Neuts (auto) Absolute Lymphs (auto) Absolute Monos (auto) Absolute Eos (auto) Absolute Basos (auto) Seg Neutrophils % PT INR APTT Sodium 137.9 Potassium 4.6 Chloride 102 Carbon Dioxide 21 L Anion Gap 15 BUN 26 H Creatinine 1.62 H Est GFR ( Amer) 53 L Est GFR (MDRD) Non-Af 44 L Glucose 126 H POC Glucose 102 Hemoglobin A1c % Calcium 9.3 Magnesium Total Bilirubin Direct Bilirubin Neonat Total Bilirubin Neonat Direct Bilirubin Neonat Indirect Bili AST ALT Alkaline Phosphatase Creatine Kinase 290 H CK-MB (CK-2) 2.65 Troponin I 0.035 NT-Pro-B Natriuret Pep Total Protein Albumin Triglycerides Cholesterol LDL Cholesterol Direct VLDL Cholesterol HDL Cholesterol Lipase TSH Free T4 Free T3 pg/mL Urine Color Urine Appearance Urine pH Ur Specific [place] Urine Protein Urine Glucose (UA) Urine Ketones Urine Blood Urine Nitrite Urine Bilirubin Urine Urobilinogen Ur Leukocyte Esterase Urine WBC (Auto) Urine RBC (Auto) U Hyaline Cast (Auto) Squamous Epi Cells Auto Urine Mucus (Auto) Urine Ascorbic Acid 04/02/19 04/02/19 04/02/19 02:57 02:57 02:57 WBC 7.8 RBC 5.02 Hgb 12.0 L Hct 38.7 MCV 77 L MCH 23.9 L MCHC 31.1 L RDW 18.3 H Plt Count 256 Lymph % (Auto) [place] % (Auto) Eos % (Auto) Baso % (Auto) Absolute Neuts (auto) Absolute Lymphs (auto) Absolute Monos (auto) Absolute Eos (auto) Absolute Basos (auto) Seg Neutrophils % PT INR APTT Sodium Potassium Chloride Carbon Dioxide Anion Gap BUN Creatinine Est GFR ( Amer) Est GFR (MDRD) Non-Af Glucose POC Glucose Hemoglobin A1c % 6.1 H Calcium Magnesium 2.0 Total Bilirubin Direct Bilirubin Neonat Total Bilirubin Neonat Direct Bilirubin Neonat Indirect Bili AST ALT Alkaline Phosphatase Creatine Kinase CK-MB (CK-2) Troponin I NT-Pro-B Natriuret Pep Total Protein Albumin Triglycerides 60 Cholesterol 129.20 LDL Cholesterol Direct 103 H VLDL Cholesterol 12.0 HDL Cholesterol 26 L Lipase TSH Free T4 Free T3 pg/mL Urine Color Urine Appearance Urine pH Ur Specific [place] Urine Protein Urine Glucose (UA) Urine Ketones Urine Blood Urine Nitrite Urine Bilirubin Urine Urobilinogen Ur Leukocyte Esterase Urine WBC (Auto) Urine RBC (Auto) U Hyaline Cast (Auto) Squamous Epi Cells Auto Urine Mucus (Auto) Urine Ascorbic Acid 04/02/19 04/02/19 04/02/19 07:22 10:13 10:13 WBC RBC Hgb Hct MCV MCH MCHC RDW Plt Count Lymph % (Auto) [place] % (Auto) Eos % (Auto) Baso % (Auto) Absolute Neuts (auto) Absolute Lymphs (auto) Absolute Monos (auto) Absolute Eos (auto) Absolute Basos (auto) Seg Neutrophils % PT INR APTT Sodium 137.7 Potassium 4.2 Chloride 100 Carbon Dioxide 25 Anion Gap 13 BUN 27 H Creatinine 1.71 H Est GFR ( Amer) 50 L Est GFR (MDRD) Non-Af 41 L Glucose 126 H POC Glucose 106 Hemoglobin A1c % Calcium 9.3 Magnesium Total Bilirubin Direct Bilirubin Neonat Total Bilirubin Neonat Direct Bilirubin Neonat Indirect Bili AST ALT Alkaline Phosphatase Creatine Kinase 266 H CK-MB (CK-2) 2.40 Troponin I 0.035 NT-Pro-B Natriuret Pep Total Protein Albumin Triglycerides Cholesterol LDL Cholesterol Direct VLDL Cholesterol HDL Cholesterol Lipase TSH Free T4 Free T3 pg/mL Urine Color Urine Appearance Urine pH Ur Specific [place] Urine Protein Urine Glucose (UA) Urine Ketones Urine Blood Urine Nitrite Urine Bilirubin Urine Urobilinogen Ur Leukocyte Esterase Urine WBC (Auto) Urine RBC (Auto) U Hyaline Cast (Auto) Squamous Epi Cells Auto Urine Mucus (Auto) Urine Ascorbic Acid 04/02/19 04/02/19 04/02/19 12:32 14:57 15:13 WBC RBC Hgb Hct MCV MCH MCHC RDW Plt Count Lymph % (Auto) [place] % (Auto) Eos % (Auto) Baso % (Auto) Absolute Neuts (auto) Absolute Lymphs (auto) Absolute Monos (auto) Absolute Eos (auto) Absolute Basos (auto) Seg Neutrophils % PT INR APTT Sodium 136.3 L Potassium 4.0 Chloride 99 Carbon Dioxide 28 Anion Gap 9 BUN 28 H Creatinine 1.71 H Est GFR ( Amer) 50 L Est GFR (MDRD) Non-Af 41 L Glucose 124 H POC Glucose 125 H 125 H Hemoglobin A1c % Calcium 9.1 Magnesium Total Bilirubin Direct Bilirubin Neonat Total Bilirubin Neonat Direct Bilirubin Neonat Indirect Bili AST ALT Alkaline Phosphatase Creatine Kinase CK-MB (CK-2) Troponin I NT-Pro-B Natriuret Pep Total Protein Albumin Triglycerides Cholesterol LDL Cholesterol Direct VLDL Cholesterol HDL Cholesterol Lipase TSH Free T4 Free T3 pg/mL Urine Color Urine Appearance Urine pH Ur Specific [place] Urine Protein Urine Glucose (UA) Urine Ketones Urine Blood Urine Nitrite Urine Bilirubin Urine Urobilinogen Ur Leukocyte Esterase Urine WBC (Auto) Urine RBC (Auto) U Hyaline Cast (Auto) Squamous Epi Cells Auto Urine Mucus (Auto) Urine Ascorbic Acid 04/02/19 04/02/19 04/03/19 20:59 21:12 02:55 WBC 8.0 RBC 4.85 Hgb 11.7 L Hct 37.1 L MCV 76 L MCH 24.1 L MCHC 31.5 L RDW 18.3 H Plt Count 243 Lymph % (Auto) [place] % (Auto) Eos % (Auto) Baso % (Auto) Absolute Neuts (auto) Absolute Lymphs (auto) Absolute Monos (auto) Absolute Eos (auto) Absolute Basos (auto) Seg Neutrophils % PT INR APTT Sodium 136.1 L Potassium 3.7 Chloride 98 Carbon Dioxide 28 Anion Gap 10 BUN 27 H Creatinine 1.75 H Est GFR ( Amer) 49 L Est GFR (MDRD) Non-Af 40 L Glucose 119 H POC Glucose 118 H Hemoglobin A1c % Calcium 8.9 Magnesium Total Bilirubin Direct Bilirubin Neonat Total Bilirubin Neonat Direct Bilirubin Neonat Indirect Bili AST ALT Alkaline Phosphatase Creatine Kinase CK-MB (CK-2) Troponin I NT-Pro-B Natriuret Pep Total Protein Albumin Triglycerides Cholesterol LDL Cholesterol Direct VLDL Cholesterol HDL Cholesterol Lipase TSH Free T4 Free T3 pg/mL Urine Color Urine Appearance Urine pH Ur Specific [place] Urine Protein Urine Glucose (UA) Urine Ketones Urine Blood Urine Nitrite Urine Bilirubin Urine Urobilinogen Ur Leukocyte Esterase Urine WBC (Auto) Urine RBC (Auto) U Hyaline Cast (Auto) Squamous Epi Cells Auto Urine Mucus (Auto) Urine Ascorbic Acid 04/03/19 04/03/19 04/03/19 02:55 02:55 07:35 WBC RBC Hgb Hct MCV MCH MCHC RDW Plt Count Lymph % (Auto) [place] % (Auto) Eos % (Auto) Baso % (Auto) Absolute Neuts (auto) Absolute Lymphs (auto) Absolute Monos (auto) Absolute Eos (auto) Absolute Basos (auto) Seg Neutrophils % PT INR APTT Sodium 136.1 L Potassium 3.8 Chloride 99 Carbon Dioxide 26 Anion Gap 11 BUN 27 H Creatinine 1.69 H Est GFR ( Amer) 51 L Est GFR (MDRD) Non-Af 42 L Glucose 105 POC Glucose 157 H Hemoglobin A1c % Calcium 8.9 Magnesium 1.9 Total Bilirubin Direct Bilirubin Neonat Total Bilirubin Neonat Direct Bilirubin Neonat Indirect Bili AST ALT Alkaline Phosphatase Creatine Kinase CK-MB (CK-2) Troponin I NT-Pro-B Natriuret Pep 8350 H Total Protein Albumin Triglycerides Cholesterol LDL Cholesterol Direct VLDL Cholesterol HDL Cholesterol Lipase TSH Free T4 Free T3 pg/mL Urine Color Urine Appearance Urine pH Ur Specific [place] Urine Protein Urine Glucose (UA) Urine Ketones Urine Blood Urine Nitrite Urine Bilirubin Urine Urobilinogen Ur Leukocyte Esterase Urine WBC (Auto) Urine RBC (Auto) U Hyaline Cast (Auto) Squamous Epi Cells Auto Urine Mucus (Auto) Urine Ascorbic Acid 04/03/19 04/03/19 04/03/19 09:25 11:21 15:44 WBC RBC Hgb Hct MCV MCH MCHC RDW Plt Count Lymph % (Auto) [place] % (Auto) Eos % (Auto) Baso % (Auto) Absolute Neuts (auto) Absolute Lymphs (auto) Absolute Monos (auto) Absolute Eos (auto) Absolute Basos (auto) Seg Neutrophils % PT INR APTT Sodium 135.6 L 136.5 L Potassium 3.8 4.0 Chloride 100 98 Carbon Dioxide 27 28 Anion Gap 9 11 BUN 26 H 26 H Creatinine 1.65 H 1.77 H Est GFR ( Amer) 52 L 48 L Est GFR (MDRD) Non-Af 43 L 40 L Glucose 144 H 139 H POC Glucose 133 H Hemoglobin A1c % Calcium 8.7 9.2 Magnesium Total Bilirubin Direct Bilirubin Neonat Total Bilirubin Neonat Direct Bilirubin Neonat Indirect Bili AST ALT Alkaline Phosphatase Creatine Kinase CK-MB (CK-2) Troponin I NT-Pro-B Natriuret Pep Total Protein Albumin Triglycerides Cholesterol LDL Cholesterol Direct VLDL Cholesterol HDL Cholesterol Lipase TSH Free T4 Free T3 pg/mL Urine Color Urine Appearance Urine pH Ur Specific [place] Urine Protein Urine Glucose (UA) Urine Ketones Urine Blood Urine Nitrite Urine Bilirubin Urine Urobilinogen Ur Leukocyte Esterase Urine WBC (Auto) Urine RBC (Auto) U Hyaline Cast (Auto) Squamous Epi Cells Auto Urine Mucus (Auto) Urine Ascorbic Acid 04/03/19 16:29 WBC RBC Hgb Hct MCV MCH MCHC RDW Plt Count Lymph % (Auto) [place] % (Auto) Eos % (Auto) Baso % (Auto) Absolute Neuts (auto) Absolute Lymphs (auto) Absolute Monos (auto) Absolute Eos (auto) Absolute Basos (auto) Seg Neutrophils % PT INR APTT Sodium Potassium Chloride Carbon Dioxide Anion Gap BUN Creatinine Est GFR ( Amer) Est GFR (MDRD) Non-Af Glucose POC Glucose 142 H Hemoglobin A1c % Calcium Magnesium Total Bilirubin Direct Bilirubin Neonat Total Bilirubin Neonat Direct Bilirubin Neonat Indirect Bili AST ALT Alkaline Phosphatase Creatine Kinase CK-MB (CK-2) Troponin I NT-Pro-B Natriuret Pep Total Protein Albumin Triglycerides Cholesterol LDL Cholesterol Direct VLDL Cholesterol HDL Cholesterol Lipase TSH Free T4 Free T3 pg/mL Urine Color Urine Appearance Urine pH Ur Specific [place] Urine Protein Urine Glucose (UA) Urine Ketones Urine Blood Urine Nitrite Urine Bilirubin Urine Urobilinogen Ur Leukocyte Esterase Urine WBC (Auto) Urine RBC (Auto) U Hyaline Cast (Auto) Squamous Epi Cells Auto Urine Mucus (Auto) Urine Ascorbic Acid Chest X-Ray 04/01/19 00:00 IMPRESSION: Small right pleural effusion with right lower lobe infiltrate either atelectasis or pneumonia. Venous Doppler Study 04/01/19 15:44 IMPRESSION: NO EVIDENCE DVT OR SVT IN EITHER LEG. Renal Ultrasound 04/03/19 00:00 IMPRESSION: NORMAL RENAL AND BLADDER ULTRASOUND. IMPRESSION/RECOMMENDATION: 1. Acute on chronic systolic heart failure. The patient has acute left ventricular and right ventricle systolic heart failure. 2. Cardiomyopathy: Severely depressed LV ejection fraction. At present blood pressure is low. The patient is not volume overloaded. Hence would decrease the Lasix to 20 mg p.o. daily. We will start the patient on a small dose of Coreg and also PEMA inhibitor and increase as tolerated. We will watch the patient's renal function. 3. Severe pulmonary hypertension. 4. History of hypertension: Blood pressure on the lower side. If this continues we will start the patient on Midrin to help start the patient on PEMA inhibitor and beta-shaggy. 5. Diabetes mellitus: Continue current therapy and Accu-Cheks. 6. Chronic kidney disease: Most likely secondary to chronic use of nonsteroidal inflammatory agent, and also the influence of hepatorenal syndrome on the kidneys. Hopefully this will improve with improvement in the patient's LV function. 7. History of palpitations: At present no arrhythmia seen on the monitor. The patient will be advised to have a LifeVest placed. 8. Chronic back pain secondary to spinal cord injury and history of back surgery in the past. If this continues patient may require pain management so that he avoids nonsteroidal anti-inflammatory agents to deal with this pain. Patient medications reviewed. Medications adjusted. Management plan discussed with attending physician on the case. Medical decision making is of high complexity. 40 minutes spent on the patient with more than 50% of time spent direct patient care.
[2019-04-03 21:19] LABS: ANION GAP 11 (5-19); BLOOD UREA NITROGEN 26 mg/dL (7-20); CALCIUM 8.5 mg/dL (8.4-10.2); CARBON DIOXIDE 27 mmol/L (22-30); CHLORIDE 98 mmol/L (98-107); GLUCOSE 123 mg/dL (75-110); POTASSIUM 4.2 mmol/L (3.6-5.0)
[2019-04-03] MEDS: CARVEDILOL 6.25 MG TABLET PO SCH (22:46)
[2019-04-03] MEDS: LISINOPRIL 10 MG TABLET PO SCH (22:47)
[2019-04-04 04:48] LABS: HEMATOCRIT 36.3 % (37.9-51.0); HEMOGLOBIN 11.3 g/dL (13.5-17.0); MEAN CORPUSCULAR HEMOGLOBIN 23.9 pg (27.0-33.4); MEAN CORPUSCULAR HGB CONC 31.1 g/dL (32.0-36.0); MEAN CORPUSCULAR VOLUME 77 fl (80-97); PLATELET COUNT 240 10^3/uL (150-450); RED BLOOD COUNT 4.73 10^6/uL (4.35-5.55); RED CELL DISTRIBUTION WIDTH 18.4 % (11.5-14.0); WHITE BLOOD COUNT 6.5 10^3/uL (4.0-10.5)
[2019-04-04 04:58] LABS: ANION GAP 9 (5-19); BLOOD UREA NITROGEN 26 mg/dL (7-20); CARBON DIOXIDE 28 mmol/L (22-30); CHLORIDE 101 mmol/L (98-107); GLUCOSE 130 mg/dL (75-110)
[2019-04-04] MEDS: HEPARIN SOD (PORCINE) 5,000 UNIT/ML 1 ML VIAL SUBCUT SCH ×3 (06:38→22:42)
[2019-04-04] MEDS: PANTOPRAZOLE SODIUM 40 MG TABLET.DR PO SCH ×2 (06:38→17:08)
--- NOTE | 2019-04-04 08:56 | PDOC PROGRESS REPORT ---
Subjective Progress Note for:: 04/04/19 Subjective:: 59 year old male who presented to the emergency room with a 8-day history of edema. Patient admits that 8 days ago he began having increased swelling of his lower extremities which is been gradually spreading up to his waist. The swelling is accompanied by severe orthopnea and the sensation of a constantly present, moderately intense, aching throbbing pressure in both of his lower extremities without radiation. He normally walks with a walker but his legs have been so heavy and swollen that he is not been able to walk and has been wheelchair-bound for the last several days. He was seen by his primary care provider and started on Lasix 1 week ago however his symptoms have continued to worsen rather than improve. He acknowledges accompanying decreased urinary output and dark urine when he does pass urine. He denies prior similar symptoms and has not identified any aggravating or ameliorating factors for his swelling. In the emergency room he was found to have a mildly elevated BUN and creatinine and a negative venous Doppler study of the bilateral lower extremities. Chest x-ray revealed mild cardiomegaly and a small pleural effusion. Patient was subsequently admitted to the hospital for further evaluation treatment. 04/[id number]-old male admitted with bilateral lower extremity edema BNP at the time of admission is more than 9000 chest x-ray shows small right pleural effusion and questionable right lower lobe infiltrate. Patient says he is feeling much better. He was on Lasix drip. He is peeing a lot. But there is a concern about a penile implant so the Matias's catheter was not placed but according to the patient he has a bladder bladder stimulator do not have panel stimulator. But we could hold off on placing Matias's catheter at this moment. No acute events since admission. Afebrile. Patient states he is breathing better today. 04/03/2019-no acute events in the last 24 hours. Patient is afebrile. Echocardiogram was done found to have a severe cardiomyopathy with EF of less than 25%. Patient is presently on Lasix 25 mg P.o. 3 times daily. Nephrology consult was requested. Cardiology on board probably he need a LifeVest. 04/[id number]-old male admitted with bilateral lower extremity pedal edema found to have a severe cardiomyopathy EF of less than 25%. Request for a LifeVest is approved. Patient is asymptomatic. Blood pressures are on the softer side it is 100/60 today. Present on Coreg, lisinopril and Lasix 20 mg p.o. daily. Pedal edema is almost resolved. Reason For Visit: ACUTE CONGESTIVE HEART FAILURE Physical Exam Vital Signs: Temp Pulse Resp BP Pulse Ox 98.0 F 83 20 95/44 L 100 04/04/19 03:35 04/04/19 07:00 04/04/19 03:35 04/04/19 03:35 04/04/19 03:35 Intake & Output 04/03/19 04/04/19 04/05/19 06:59 06:59 06:59 Intake Total 1110 760 Output Total 600 Balance 1110 160 Weight 77.4 kg 76.6 kg General appearance: PRESENT: no acute distress, cooperative Head exam: PRESENT: atraumatic Eye exam: PRESENT: PERRLA Mouth exam: PRESENT: neck supple Teeth exam: PRESENT: poor dentation Neck exam: ABSENT: carotid bruit, JVD, lymphadenopathy, thyromegaly Respiratory exam: PRESENT: decreased breath sounds Cardiovascular exam: PRESENT: RRR. ABSENT: diastolic murmur, rubs, systolic murmur GI/Abdominal exam: PRESENT: normal bowel sounds, soft. ABSENT: distended, guarding, mass, organolmegaly, rebound, tenderness Rectal exam: PRESENT: deferred Extremities exam: PRESENT: full ROM. ABSENT: calf tenderness, clubbing, pedal edema Neurological exam: PRESENT: alert, awake, oriented to person, oriented to place, oriented to time, oriented to situation, CN II-XII grossly intact. ABSENT: motor sensory deficit Psychiatric exam: PRESENT: appropriate affect, normal mood. ABSENT: homicidal ideation, suicidal ideation Results Laboratory Results: 04/04/19 04:30 04/04/19 04:30 04/03/19 04/03/19 04/03/19 09:25 15:44 20:50 WBC RBC Hgb Hct MCV MCH MCHC RDW Plt Count Sodium 135.6 L 136.5 L 136.4 L Potassium 3.8 4.0 4.2 Chloride 100 98 98 Carbon Dioxide 27 28 27 Anion Gap 9 11 11 BUN 26 H 26 H 26 H Creatinine 1.65 H 1.77 H 1.81 H Est GFR ( Amer) 52 L 48 L 47 L Glucose 144 H 139 H 123 H Calcium 8.7 9.2 8.5 Magnesium 04/04/19 04/04/19 04:30 04:30 WBC 6.5 RBC 4.73 Hgb 11.3 L Hct 36.3 L MCV 77 L MCH 23.9 L MCHC 31.1 L RDW 18.4 H Plt Count 240 Sodium 138.0 Potassium 4.0 Chloride 101 Carbon Dioxide 28 Anion Gap 9 BUN 26 H Creatinine 1.80 H Est GFR ( Amer) 47 L Glucose 130 H Calcium 9.0 Magnesium 2.1 04/01/19 04/01/19 04/01/19 14:30 14:30 20:49 Creatine Kinase 287 H CK-MB (CK-2) 3.56 3.20 Troponin I 0.029 NT-Pro-B Natriuret Pep 9060 H 04/01/19 04/02/19 04/02/19 20:49 02:57 02:57 Creatine Kinase 284 H 290 H CK-MB (CK-2) 2.65 Troponin I 0.035 NT-Pro-B Natriuret Pep 04/02/19 04/02/19 04/03/19 10:13 10:13 02:55 Creatine Kinase 266 H CK-MB (CK-2) 2.40 Troponin I 0.035 NT-Pro-B Natriuret Pep 8350 H 04/04/19 04:30 Creatine Kinase CK-MB (CK-2) Troponin I NT-Pro-B Natriuret Pep 7200 H Impressions: Chest X-Ray 04/01/19 00:00 IMPRESSION: Small right pleural effusion with right lower lobe infiltrate either atelectasis or pneumonia. Venous Doppler Study 04/01/19 15:44 IMPRESSION: NO EVIDENCE DVT OR SVT IN EITHER LEG. Renal Ultrasound 04/03/19 00:00 IMPRESSION: NORMAL RENAL AND BLADDER ULTRASOUND. Assessment and Plan - Diagnosis (1) Acute congestive heart failure Qualifiers: Heart failure type: unspecified Qualified Code(s): I50.9 - Heart failure, unspecified Is this a current diagnosis for this admission?: Yes Plan: Patient be treated with a Lasix infusion for initial therapy. A cardiology consultation with Dr. Breen will be obtained. An echocardiogram will be obtained. Serial cardiac enzymes will be performed. A BNP will be obtained. Daily metabolic profiles will be obtained. 04/02/2019-patient denies any history of congestive heart failure is having this lower leg extremity edema for the last 1-1/2 weeks according to the patient is drinking a lot of juices and plenty of water for the last 2 weeks. We could put him on a fluid restriction 1500 cc/h and discontinue IV Lasix switch to Lasix 40 mg twice a day IV and to check daily weights and if possible to do the input output chart. Plan is to repeat the labs tomorrow and chest x-ray tomorrow. Cardiogram is pending. 04/03/2019-echocardiogram indicates severe cardiomyopathy with EF of less than 25% on Lasix 40 mg 3 times daily on fluid restriction 1200 cc/day edema is improving patient requires LifeVest. 04/04/2019-echocardiogram shows severe cardiomyopathy EF of less than 25%. Most likely secondary to chronic hypertension and noncompliant this medications. Presently on Lasix 20 mg p.o. daily, Coreg and lisinopril. Request for LifeVest is approved. (2) JORGE A (acute kidney injury) Is this a current diagnosis for this admission?: Yes Plan: Patient's renal functions be monitored closely with daily metabolic profiles. Daily CBCs and magnesium levels will also be obtained. Consultation with nephrology will also be obtained with Dr. Gillespie. 04/02/2019-serum creatinine today is 1.62 the creatinine in October is 1.28. Consultation with Dr. Gillespie was requested. JORGE A may be secondary to CHF exacerbation. AKA may be contributing to his increased BNP. to arrange for the renal ultrasound today. 04/03/2019-serum creatinine today is 1.69 stable. Nephrology consult was requested. Renal ultrasound was normal. Patient is nonoliguric. JORGE A most likely secondary to CHF exacerbation. 04/04/2019-serum creatinine today is 1.8, renal ultrasound was negative. Nephrology consult was done. JORGE A most likely secondary to CHF exacerbation. Patient is nonoliguric. BNP 7200. (3) Diabetes mellitus type 2 in nonobese Is this a current diagnosis for this admission?: Yes Plan: Hemoglobin A1c will be obtained and patient will be continued on his usual diabetic therapy and diet pending results. 04/02/2019-patient's hemoglobin A1c 6.1. Presently on insulin sliding scale before meals and at bedtime on carb diet. Compliance with medication was advis ed. 04/03/2019-patient's latest blood sugar is 105 stable. On insulin sliding scale. Plan is to continue the present management. 04/04/2019-latest blood sugar is 130 stable on insulin sliding scale. Dietary counseling was provided. (4) Hypertension Qualifiers: Hypertension type: essential hypertension Qualified Code(s): I10 - Essential (primary) hypertension Is this a current diagnosis for this admission?: Yes Plan: Patient's antihypertensive regiment will be adjusted in order to treat his congestive heart failure. 04/02/2019-patient has no history of congestive heart failure not on diuretics at home. Plan is to discontinue IV Lasix start on Lasix 40 mg IV twice a day and to hold off on PEMA inhibitors for until the kidney function is improved. 04/03/2019-patient blood pressures on the softer side latest blood pressure is 90/70. Plan is to closely monitor the blood pressure. 05/04/2019-blood pressure today is 100/60 asymptomatic. Presently on Coreg lisinopril and Lasix 20 mg p.o. daily plan is to continue the present management. (5) Pleural effusion Is this a current diagnosis for this admission?: Yes Plan: 04/02/2019-chest x-ray shows mild right pleural effusion it may be secondary to CHF. We will plan to do the follow-up chest x-rays. 04/04/2019-patient has right pleural effusion most likely secondary to congestive heart failure. Pulse ox today is 100% on 2 L. - Time Time Spent with patient: 25-34 minutes Medications reviewed and adjusted accordingly: Yes Anticipated discharge: Home
[2019-04-04] MEDS: CARVEDILOL 6.25 MG TABLET PO SCH ×2 (09:28→22:41)
[2019-04-04] MEDS: LISINOPRIL 10 MG TABLET PO SCH (09:28)
[2019-04-04] MEDS: DOCUSATE SODIUM 100 MG CAPSULE PO SCH ×2 (09:28→17:05)
[2019-04-04] MEDS: FUROSEMIDE 20 MG TABLET PO SCH (09:31)
[2019-04-04] MEDS ORDERED: FUROSEMIDE INJ/PF 40 MG/4 ML SDV IV SCH ×2 (10:00)
[2019-04-04] MEDS ORDERED: LISINOPRIL 5 MG TABLET PO ONE (14:45)
--- NOTE | 2019-04-04 15:29 | PDOC PROGRESS REPORT ---
Subjective Progress Note for:: 04/04/19 Subjective:: Patient is feeling much better. His breathing is fine. His lower extremity edema is almost resolved. He is making urine although difficult to accurately quantify because he does have urinary incontinence. He is now wearing a LifeVest. He does not have any new complaints. Reason For Visit: ACUTE CONGESTIVE HEART FAILURE Physical Exam Vital Signs: Temp Pulse Resp BP Pulse Ox 98.0 F 92 16 103/67 97 04/04/19 11:17 04/04/19 11:17 04/04/19 11:17 04/04/19 11:17 04/04/19 11:17 Intake & Output 04/03/19 04/04/19 04/05/19 06:59 06:59 06:59 Intake Total 1110 760 Output Total 600 Balance 1110 160 Weight 77.4 kg 76.6 kg Results Laboratory Results: 04/04/19 04:30 04/04/19 04:30 04/03/19 04/03/19 04/04/19 15:44 20:50 04:30 WBC 6.5 RBC 4.73 Hgb 11.3 L Hct 36.3 L MCV 77 L MCH 23.9 L MCHC 31.1 L RDW 18.4 H Plt Count 240 Sodium 136.5 L 136.4 L Potassium 4.0 4.2 Chloride 98 98 Carbon Dioxide 28 27 Anion Gap 11 11 BUN 26 H 26 H Creatinine 1.77 H 1.81 H Est GFR ( Amer) 48 L 47 L Glucose 139 H 123 H Calcium 9.2 8.5 Magnesium 04/04/19 04:30 WBC RBC Hgb Hct MCV MCH MCHC RDW Plt Count Sodium 138.0 Potassium 4.0 Chloride 101 Carbon Dioxide 28 Anion Gap 9 BUN 26 H Creatinine 1.80 H Est GFR ( Amer) 47 L Glucose 130 H Calcium 9.0 Magnesium 2.1 04/01/19 04/01/19 04/01/19 14:30 14:30 20:49 Creatine Kinase 287 H CK-MB (CK-2) 3.56 3.20 Troponin I 0.029 NT-Pro-B Natriuret Pep 9060 H 04/01/19 04/02/19 04/02/19 20:49 02:57 02:57 Creatine Kinase 284 H 290 H CK-MB (CK-2) 2.65 Troponin I 0.035 NT-Pro-B Natriuret Pep 04/02/19 04/02/19 04/03/19 10:13 10:13 02:55 Creatine Kinase 266 H CK-MB (CK-2) 2.40 Troponin I 0.035 NT-Pro-B Natriuret Pep 8350 H 04/04/19 04:30 Creatine Kinase CK-MB (CK-2) Troponin I NT-Pro-B Natriuret Pep 7200 H Impressions: Chest X-Ray 04/01/19 00:00 IMPRESSION: Small right pleural effusion with right lower lobe infiltrate either atelectasis or pneumonia. Venous Doppler Study 04/01/19 15:44 IMPRESSION: NO EVIDENCE DVT OR SVT IN EITHER LEG. Renal Ultrasound 04/03/19 00:00 IMPRESSION: NORMAL RENAL AND BLADDER ULTRASOUND. Assessment & Plan - Diagnosis (1) JORGE A (acute kidney injury) Is this a current diagnosis for this admission?: Yes Plan: Patient is nonoliguric. His kidney function is stabilizing and is very possible that this could be close to his actual baseline kidney function and possibly have an underlying chronic kidney disease. His renal ultrasound is within normal limits and unremarkable. Etiology of his kidney disease is most likely secondary to combination of cardiorenal syndrome and NSAID use. Currently patient does not need any renal replacement therapy. Continue current management and optimize cardiac management per cardiology service. Once discharge patient will need to follow-up with nephrology as an outpatient so we will be happy to see him in 1 to 2 weeks with the least repeat basic metabolic panel. (2) Acute congestive heart failure Qualifiers: Heart failure type: unspecified Qualified Code(s): I50.9 - Heart failure, unspecified Is this a current diagnosis for this admission?: Yes Plan: Echocardiogram reveals biventricular moderate to severe reduced function and moderate to severe dilation. His LVEF is 25% with severe global hypokinesia. Cardiology is following and managing cardiac dysfunction. Patient currently on LifeVest. (3) Cardiomyopathy Is this a current diagnosis for this admission?: Yes (4) Severe pulmonary arterial systolic hypertension Is this a current diagnosis for this admission?: Yes (5) Diabetes mellitus type 2 in nonobese Is this a current diagnosis for this admission?: Yes Plan: Well-controlled, not on medications. (6) Hypertension Qualifiers: Hypertension type: essential hypertension Qualified Code(s): I10 - Esse ntial (primary) hypertension Is this a current diagnosis for this admission?: Yes Plan: Actually in the low side likely due to cardiomyopathy. Defer to cardiology. (7) Pleural effusion Is this a current diagnosis for this admission?: Yes Plan: Likely related to CHF. (8) Anemia Is this a current diagnosis for this admission?: Yes - Time Time with patient: 15-25 minutes
[2019-04-04] MEDS ORDERED: CARVEDILOL 6.25 MG TABLET PO ONE (15:30)
[2019-04-04] MEDS: ZOLPIDEM TARTRATE 5 MG TABLET PO PRN (22:21)
--- NOTE | 2019-04-04 22:23 | Progress Note ---
Provider Note Provider Note: CARDIOLOGY PROGRESS NOTE by Dr. Doris Breen on 04/04/2019. SUBJECTIVE: The patient states he feels much better he has no shortness of breath. There is no chest pain or discomfort there is no leg edema there is no PND orthopnea. There is no ventricular arrhythmia seen on the monitor. There is no TIA CVA symptoms. The patient is being fitted with a LifeVest. PHYSICAL EXAMINATION: The patient is well-built and well-nourished in no acute distress. Selected Entries 04/04/19 11:17 Temperature 98.0 F Temperature Oral Source Pulse Rate 92 Respiratory 16 Rate Blood Pressure 103/67 Blood Pressure 79 Mean BP Location Right Arm BP Position Sitting O2 Sat by Pulse 97 Oximetry Oxygen Delivery Room Air Method HEAD: Is atraumatic normocephalic. EYES: Pupils equal round regular reactive to light accommodation. Extraocular movements are normal. There is no conjunctival pallor. There is no scleral icterus. NOSE: There is no deviated nasal septum. There is no inflammation of the nasal mucous membrane. MOUTH: Mucous memories of the mouth are moist. Tongue is moist. There is no ulcers. There is no bleeding from the gums. THROAT: There is no redness of the oropharynx. There is no exudates. SKIN: There is no skin rashes or skin lesions. There is no ecchymosis or petechiae. NECK: Is supple. There is mild JVD still present. Carotids are equal there is no bruit there is no lymphadenopathy. There is no goiter. There is no accessory muscle respiration use. There is no chest wall tenderness. Trachea central. LUNGS: Shows a few bibasilar fine rales of CHF. There is no rhonchi or wheezing. HEART: S1-S2 is heard. S1 is of normal intensity. There is no S3 gallop. There is no S4 gallop. There is murmur of mitral regurgitation and tricuspid regurgitation present. There is aortic sclerosis murmur. There is no rub. ABDOMEN: Soft. Nontender. There is no hepatospleno megaly. Bowel sounds are well heard. EXTREMITIES: Femorals are well felt. There is no femoral bruits. Leg pulses are well felt. There is no pedal edema bilaterally. There is no DVT or cellulitis. There is no calf tenderness. APPRENTICE PLUMBER: The patient is conscious awake alert oriented x3 with no focal deficits. PSYCHIATRIC: The patient judgment insight are intact his affect is normal. Labs- All tests 24 hr 04/04/19 04/04/19 04/04/19 04:30 04:30 04:30 WBC 6.5 RBC 4.73 Hgb 11.3 L Hct 36.3 L MCV 77 L MCH 23.9 L MCHC 31.1 L RDW 18.4 H Plt Count 240 Sodium 138.0 Potassium 4.0 Chloride 101 Carbon Dioxide 28 Anion Gap 9 BUN 26 H Creatinine 1.80 H Est GFR ( Amer) 47 L Est GFR (MDRD) Non-Af 39 L Glucose 130 H POC Glucose Calcium 9.0 Magnesium 2.1 NT-Pro-B Natriuret Pep 7200 H 04/04/19 04/04/19 04/04/19 08:13 11:19 16:29 WBC RBC Hgb Hct MCV MCH MCHC RDW Plt Count Sodium Potassium Chloride Carbon Dioxide Anion Gap BUN Creatinine Est GFR ( Amer) Est GFR (MDRD) Non-Af Glucose POC Glucose 115 H 142 H 119 H Calcium Magnesium NT-Pro-B Natriuret Pep 04/04/19 21:16 WBC RBC Hgb Hct MCV MCH MCHC RDW Plt Count Sodium Potassium Chloride Carbon Dioxide Anion Gap BUN Creatinine Est GFR ( Amer) Est GFR (MDRD) Non-Af Glucose POC Glucose 111 H Calcium Magnesium NT-Pro-B Natriuret Pep Chest X-Ray 04/01/19 00:00 IMPRESSION: Small right pleural effusion with right lower lobe infiltrate either atelectasis or pneumonia. Venous Doppler Study 04/01/19 15:44 IMPRESSION: NO EVIDENCE DVT OR SVT IN EITHER LEG. Renal Ultrasound 04/03/19 00:00 IMPRESSION: NORMAL RENAL AND BLADDER ULTRASOUND. IMPRESSION/RECOMMENDATION: 1. Acute on chronic systolic heart failure. The patient has acute left vent ricular and right ventricle systolic heart failure. 2. Cardiomyopathy: Severely depressed LV ejection fraction. At present blood pressure is low. The patient is not volume overloaded. Hence would decrease the Lasix to 20 mg p.o. daily. Orders written yesterday for PEMA inhibitor and Coreg have not been given to the patient since there was a mixup with the patient's blood pressure. The patient blood pressure is better now. And the heart rate is also good. Hence will start the patient on a small dose of Coreg and also PEMA inhibitor and increase as tolerated. We will watch the patient's r enal function. 3. Severe pulmonary hypertension. 4. History of hypertension: Blood pressure on the lower side. If this continues we will start the patient on Midrin to help start the patient on PEMA inhibitor and beta-shaggy. 5. Diabetes mellitus: Continue current therapy and Accu-Cheks. 6. Chronic kidney disease: Most likely secondary to chronic use of nonsteroidal inflammatory agent, and also the influence of hepatorenal syndrome on the kidneys. Hopefully this will improve with improvement in the patient's LV function. 7. History of palpitations: At present no arrhythmia seen on the monitor. The patient will be advised to have a LifeVest placed. 8. Chronic back pain secondary to spinal cord injury and history of back surgery in the past. If this continues patient may require pain management so that he avoids nonsteroidal anti-inflammatory agents to deal with this pain. Patient medications reviewed. Medications adjusted. Management plan discussed with attending physician on the case. Medical decision making is of high complexity. 40 minutes spent on the patient with more than 50% of time spent direct patient care.
[2019-04-04] MEDS: LISINOPRIL 5 MG TABLET PO SCH (22:42)
[2019-04-05] MEDS: HEPARIN SOD (PORCINE) 5,000 UNIT/ML 1 ML VIAL SUBCUT SCH ×3 (06:18→21:44)
[2019-04-05] MEDS: PANTOPRAZOLE SODIUM 40 MG TABLET.DR PO SCH ×2 (06:18→17:02)
[2019-04-05 06:45] LABS: ABSOLUTE EOSINOPHILS # (AUTO) 0.3 10^3/uL (0.0-0.6); ABSOLUTE LYMPHOCYTES (AUTO) 1.9 10^3/uL (0.5-4.7); ABSOLUTE MONOCYTES (AUTO) 0.5 10^3/uL (0.1-1.4); ABSOLUTE NEUT (AUTO) 2.4 10^3/uL (1.7-8.2); BASOPHILS % (AUTO) 0.9 % (0-2); EOSINOPHILS % (AUTO) 5.7 % (0-6); HEMATOCRIT 36.5 % (37.9-51.0); HEMOGLOBIN 11.2 g/dL (13.5-17.0); LYMPHOCYTES % (AUTO) 36.4 % (13-45); MEAN CORPUSCULAR HEMOGLOBIN 23.5 pg (27.0-33.4); MEAN CORPUSCULAR HGB CONC 30.8 g/dL (32.0-36.0); MEAN CORPUSCULAR VOLUME 76 fl (80-97); MONOCYTES % (AUTO) 10.1 % (3-13); PLATELET COUNT 252 10^3/uL (150-450); RED BLOOD COUNT 4.78 10^6/uL (4.35-5.55); RED CELL DISTRIBUTION WIDTH 18.7 % (11.5-14.0); SEGMENTED NEUTROPHILS % (AUTO) 46.9 % (42-78); TOTAL CELLS COUNTED % (AUTO) 100 %; WHITE BLOOD COUNT 5.2 10^3/uL (4.0-10.5)
[2019-04-05 07:07] LABS: ALBUMIN 3.5 g/dL (3.5-5.0); ALKALINE PHOSPHATASE 110 U/L (38-126); ANION GAP 9 (5-19); ASPARTATE AMINO TRANSFERASE 26 U/L (17-59); BILIRUBIN,DIRECT 0.8 mg/dL (0.0-0.4); BILIRUBIN,TOTAL 1.3 mg/dL (0.2-1.3); BLOOD UREA NITROGEN 28 mg/dL (7-20); CALCIUM 9.3 mg/dL (8.4-10.2); CARBON DIOXIDE 29 mmol/L (22-30); CHLORIDE 100 mmol/L (98-107); GLUCOSE 102 mg/dL (75-110); POTASSIUM 4.1 mmol/L (3.6-5.0); TOTAL PROTEIN 6.7 g/dL (6.3-8.2)
--- NOTE | 2019-04-05 09:30 | PDOC PROGRESS REPORT ---
Subjective Progress Note for:: 04/05/19 Subjective:: 59 year old male who presented to the emergency room with a 8-day history of edema. Patient admits that 8 days ago he began having increased swelling of his lower extremities which is been gradually spreading up to his waist. The swelling is accompanied by severe orthopnea and the sensation of a constantly present, moderately intense, aching throbbing pressure in both of his lower extremities without radiation. He normally walks with a walker but his legs have been so heavy and swollen that he is not been able to walk and has been wheelchair-bound for the last several days. He was seen by his primary care provider and started on Lasix 1 week ago however his symptoms have continued to worsen rather than improve. He acknowledges accompanying decreased urinary output and dark urine when he does pass urine. He denies prior similar symptoms and has not identified any aggravating or ameliorating factors for his swelling. In the emergency room he was found to have a mildly elevated BUN and creatinine and a negative venous Doppler study of the bilateral lower extremities. Chest x-ray revealed mild cardiomegaly and a small pleural effusion. Patient was subsequently admitted to the hospital for further evaluation treatment. 04/[id number]-vcle-old male admitted with bilateral lower extremity edema BNP at the time of admission is more than 9000 chest x-ray shows small right pleural effusion and questionable right lower lobe infiltrate. Patient says he is feeling much better. He was on Lasix drip. He is peeing a lot. But there is a concern about a penile implant so the Matias's catheter was not placed but according to the patient he has a bladder bladder stimulator do not have panel stimulator. But we could hold off on placing Matias's catheter at this moment. No acute events since admission. Afebrile. Patient states he is breathing better today. 04/03/2019-no acute events in the last 24 hours. Patient is afebrile. Echocardiogram was done found to have a severe cardiomyopathy with EF of less than 25%. Patient is presently on Lasix 25 mg P.o. 3 times daily. Nephrology consult was requested. Cardiology on board probably he need a LifeVest. 04/[id number]-yiir-old male admitted with bilateral lower extremity pedal edema found to have a severe cardiomyopathy EF of less than 25%. Request for a LifeVest is approved. Patient is asymptomatic. Blood pressures are on the softer side it is 100/60 today. Present on Coreg, lisinopril and Lasix 20 mg p.o. daily. Pedal edema is almost resolved. 04/05/2019-blood pressures are persistently low. Latest blood pressure is 96/58. Presently on Coreg 6.25 mg p.o. twice a day lisinopril 2.5 mg p.o. daily, Lasix 20 mg p.o. daily. To start the patient on Midodrin 5 mg p.o. 3 times daily to improve the blood pressure. Patient LifeVest is improved on once the blood pressures are stable he can go home with a LifeVest. Reason For Visit: ACUTE CONGESTIVE HEART FAILURE Physical Exam Vital Signs: Temp Pulse Resp BP Pulse Ox 97.5 F 93 16 96/58 L 100 04/05/19 03:28 04/05/19 03:28 04/05/19 03:28 04/05/19 03:28 04/05/19 03:28 Intake & Output 04/04/19 04/05/19 04/06/19 06:59 06:59 06:59 Intake Total 760 1242 Output Total 600 100 Balance 160 1142 Weight 76.6 kg 80 kg General appearance: PRESENT: no acute distress, cooperative Head exam: PRESENT: atraumatic Eye exam: PRESENT: PERRLA Mouth exam: PRESENT: neck supple Teeth exam: PRESENT: poor dentation Neck exam: ABSENT: carotid bruit, JVD, lymphadenopathy, thyromegaly Respiratory exam: PRESENT: decreased breath sounds Cardiovascular exam: PRESENT: RRR. ABSENT: diastolic murmur, rubs, systolic murmur GI/Abdominal exam: PRESENT: normal bowel sounds, soft. ABSENT: distended, guarding, mass, organolmegaly, rebound, tenderness Rectal exam: PRESENT: deferred Extremities exam: PRESENT: full ROM. ABSENT: calf tenderness, clubbing, pedal edema Neurological exam: PRESENT: alert, awake, oriented to person, oriented to place, oriented to time, oriented to situation, CN II-XII grossly intact. ABSENT: motor sensory deficit Results Laboratory Results: 04/05/19 06:28 04/05/19 06:28 04/05/19 04/05/19 06:28 06:28 WBC 5.2 RBC 4.78 Hgb 11.2 L Hct 36.5 L MCV 76 L MCH 23.5 L MCHC 30.8 L RDW 18.7 H Plt Count 252 Seg Neutrophils % 46.9 Sodium 137.9 Potassium 4.1 Chloride 100 Carbon Dioxide 29 Anion Gap 9 BUN 28 H Creatinine 1.54 H Est GFR ( Amer) 57 L Glucose 102 Calcium 9.3 Magnesium 2.2 Total Bilirubin 1.3 AST 26 Alkaline Phosphatase 110 Total Protein 6.7 Albumin 3.5 04/01/19 04/01/19 04/01/19 14:30 14:30 20:49 Creatine Kinase 287 H CK-MB (CK-2) 3.56 3.20 Troponin I 0.029 NT-Pro-B Natriuret Pep 9060 H 04/01/19 04/02/19 04/02/19 20:49 02:57 02:57 Creatine Kinase 284 H 290 H CK-MB (CK-2) 2.65 Troponin I 0.035 NT-Pro-B Natriuret Pep 04/02/19 04/02/19 04/03/19 10:13 10:13 02:55 Creatine Kinase 266 H CK-MB (CK-2) 2.40 Troponin I 0.035 NT-Pro-B Natriuret Pep 8350 H 04/04/19 04:30 Creatine Kinase CK-MB (CK-2) Troponin I NT-Pro-B Natriuret Pep 7200 H Impressions: Chest X-Ray 04/01/19 00:00 IMPRESSION: Small right pleural effusion with right lower lobe infiltrate either atelectasis or pneumonia. Venous Doppler Study 04/01/19 15:44 IMPRESSION: NO EVIDENCE DVT OR SVT IN EITHER LEG. Renal Ultrasound 04/03/19 00:00 IMPRESSION: NORMAL RENAL AND BLADDER ULTRASOUND. Assessment and Plan - Diagnosis (1) Acute congestive heart failure Qualifiers: Heart failure type: unspecified Qualified Code(s): I50.9 - Heart failure, unspecified Is this a current diagnosis for this admission?: Yes Plan: Patient be treated with a Lasix infusion for initial therapy. A cardiology consultation with Dr. Breen will be obtained. An echocardiogram will be obtained. Serial cardiac enzymes will be performed. A BNP will be obtained. Daily metabolic profiles will be obtained. 04/02/2019-patient denies any history of congestive heart failure is having this lower leg extremity edema for the last 1-1/2 weeks according to the patient is drinking a lot of juices and plenty of water for the last 2 weeks. We could put him on a fluid restriction 1500 cc/h and discontinue IV Lasix switch to Lasix 40 mg twice a day IV and to check daily weights and if possible to do the input output chart. Plan is to repeat the labs tomorrow and chest x-ray tomorrow. Cardiogram is pending. 04/03/2019-echocardiogram indicates severe cardiomyopathy with EF of less than 25% on Lasix 40 mg 3 times daily on fluid restriction 1200 cc/day edema is improving patient requires LifeVest. 04/04/2019-echocardiogram shows severe cardiomyopathy EF of less than 25%. Most likely secondary to chronic hypertension and noncompliant this medications. Presently on Lasix 20 mg p.o. daily, Coreg and lisinopril. Request for LifeVest is approved. 04/05/2019-patient has acute on chronic systolic heart failure. EF is less than 25%. Presently on Coreg 6.5 mg p.o. twice daily, lisinopril 2.5 mg p.o. daily and Lasix 20 mg p.o. daily he is on fluid restriction 1500 cc/day and started on Midodrin 5 mg p.o. 3 times daily today. (2) JORGE A (acute kidney injury) Is this a current diagnosis for this admission?: Yes Plan: Patient's renal functions be monitored closely with daily metabolic profiles. Daily CBCs and magnesium levels will also be obtained. Consultation with nephrology will also be obtained with Dr. Gillespie. 04/02/2019-serum creatinine today is 1.62 the creatinine in October is 1.28. Consul tation with Dr. Gillespie was requested. JORGE A may be secondary to CHF exacerbation. AKA may be contributing to his increased BNP. to arrange for the renal ultrasound today. 04/03/2019-serum creatinine today is 1.69 stable. Nephrology consult was requested. Renal ultrasound was normal. Patient is nonoliguric. JORGE A most likely secondary to CHF exacerbation. 04/04/2019-serum creatinine today is 1.8, renal ultrasound was negative. Nephrology consult was done. JORGE A most likely secondary to CHF exacerbation. Patient is nonoliguric. BNP 7200. 04/05/2019-patient serum creatinine today is 1.54 improved from 1.8. Renal ultrasound was negative. Do not have the baseline creatinine available. Luz ent is nonoliguric. (3) Diabetes mellitus type 2 in nonobese Is this a current diagnosis for this admission?: Yes Plan: Hemoglobin A1c will be obtained and patient will be continued on his usual diabetic therapy and diet pending results. 04/02/2019-patient's hemoglobin A1c 6.1. Presently on insulin sliding scale before meals and at bedtime on carb diet. Compliance with medication was advised. 04/03/2019-patient's latest blood sugar is 105 stable. On insulin sliding scale. Plan is to continue the present management. 04/04/2019-latest blood sugar is 130 stable on insulin sliding scale. Dietary counseling was provided. 04/05/2019-patient's latest blood sugar is 125 stable. Insulin sliding scale. Hemoglobin A1c 6.1. Plan is to continue present management. (4) Hypertension Qualifiers: Hypertension type: essential hypertension Qualified Code(s): I10 - Essential (primary) hypertension Is this a current diagnosis for this admission?: Yes Plan: Patient's antihypertensive regiment will be adjusted in order to treat his congestive heart failure. 04/02/2019-patient has no history of congestive heart failure not on diuretics at home. Plan is to discontinue IV Lasix start on Lasix 40 mg IV twice a day and to hold off on PEMA inhibitors for until the kidney function is improved. 04/03/2019-patient blood pressures on the softer side latest blood pressure is 90/70. Plan is to closely monitor the blood pressure. 04/04/2019-blood pressure today is 100/60 asymptomatic. Presently on Coreg lisin opril and Lasix 20 mg p.o. daily plan is to continue the present management. 04/05/2019-patient is actually hypotensive latest blood pressure is at 96/58 started on Midodrin 5 mg p.o. 3 times daily and plan to continue Coreg, lisinopril and Lasix. (5) Pleural effusion Is this a current diagnosis for this admission?: Yes Plan: 04/02/2019-chest x-ray shows mild right pleural effusion it may be secondary to CHF. We will plan to do the follow-up chest x-rays. 04/04/2019-patient has right pleural effusion most likely secondary to congestive heart failure. Pulse ox today is 100% on 2 L. - Time Time Spent with patient: 15-24 minutes Medications reviewed and adjusted accordingly: Yes Anticipated discharge: Home
[2019-04-05] MEDS ORDERED: MIDODRINE HCL 5 MG TABLET PO SCH (10:00)
[2019-04-05] MEDS: LISINOPRIL 5 MG TABLET PO SCH ×2 (10:28→21:45)
[2019-04-05] MEDS: FUROSEMIDE 20 MG TABLET PO SCH (10:28)
[2019-04-05] MEDS: CARVEDILOL 6.25 MG TABLET PO SCH ×2 (10:28→21:45)
[2019-04-05] MEDS: DOCUSATE SODIUM 100 MG CAPSULE PO SCH ×2 (10:29→17:02)
[2019-04-05] MEDS: MIDODRINE HCL 5 MG TABLET PO SCH ×2 (14:47→17:02)
--- NOTE | 2019-04-05 18:05 | Progress Note ---
Provider Note Provider Note: CARDIOLOGY PROGRESS NOTE by Dr.Lakshmi Breen on 04/05/2019. SUBJECTIVE:. The patient denies any chest pain or discomfort. There is no PND orthopnea. There is no palpitations. There is no arrhythmia seen on the monitor. Patient has no leg edema. His blood pressure is running low and he has been started on Midrin at 2.5 mg p.o. twice daily. There is no TIA CVA symptoms. The patient has a LifeVest on. There is no firing of his LifeVest. SUBJECTIVE: The patient is well-built and well-nourished. In no acute distress. He is well-groomed. Selected Entries 04/05/19 04/05/19 10:00 11:46 Temperature 97.6 F Pulse Rate 95 Blood Pressure 92/72 L Blood Pressure 78 Mean BP Location Left Arm BP Position Sitting O2 Sat by Pulse 100 Oximetry Oxygen Delivery Nasal Cannula Method ( includes room air) Oxygen Flow 2 Rate HEAD: Is atraumatic normocephalic. EYES: Pupils equal round regular reactive to light accommodation. Extraocular movements are normal. There is no conjunctival pallor. There is no scleral icterus. NOSE: There is no deviated nasal septum. There is no inflammation of the nasal mucous membrane. MOUTH: Mucous memories of the mouth are moist. Tongue is moist. There is no ulcers. There is no bleeding from the gums. THROAT: There is no redness of the oropharynx. There is no exudates. SKIN: There is no skin rashes or skin lesions. There is no ecchymosis or petechiae. NECK: Is supple. There is mild JVD still present. Carotids are equal there is no bruit there is no lymphadenopathy. There is no goiter. There is no accessory muscle respiration use. There is no chest wall tenderness. Trachea central. LUNGS: Shows a few bibasilar fine rales of CHF. There is no rhonchi or wheezing. HEART: S1-S2 is heard. S1 is of normal intensity. There is no S3 gallop. There is no S4 gallop. There is murmur of mitral regurgitation and tricuspid regurgitation present. There is aortic sclerosis murmur. There is no rub. ABDOMEN: Soft. Nontender. There is no hepatospleno megaly. Bowel sounds are well heard. EXTREMITIES: Femorals are well felt. There is no femoral bruits. Leg pulses are well felt. There is no pedal edema bilaterally. There is no DVT or cellulitis. There is no calf tenderness. PAINT MIXER HAND: The patient is conscious awake alert oriented x3 with no focal deficits. PSYCHIATRIC: The patient judgment insight are intact his affect is normal. Labs- All tests 24 hr 04/04/19 04/05/19 04/05/19 21:16 06:28 06:28 WBC 5.2 RBC 4.78 Hgb 11.2 L Hct 36.5 L MCV 76 L MCH 23.5 L MCHC 30.8 L RDW 18.7 H Plt Count 252 Lymph % (Auto) 36.4 [place] % (Auto) 10.1 Eos % (Auto) 5.7 Baso % (Auto) 0.9 Absolute Neuts (auto) 2.4 Absolute Lymphs (auto) 1.9 Absolute Monos (auto) 0.5 Absolute Eos (auto) 0.3 Absolute Basos (auto) 0.0 Seg Neutrophils % 46.9 Sodium 137.9 Potassium 4.1 Chloride 100 Carbon Dioxide 29 Anion Gap 9 BUN 28 H Creatinine 1.54 H Est GFR ( Amer) 57 L Est GFR (MDRD) Non-Af 47 L Glucose 102 POC Glucose 111 H Calcium 9.3 Magnesium 2.2 Total Bilirubin 1.3 Direct Bilirubin 0.8 H Neonat Total Bilirubin Not Reportable Neonat Direct Bilirubin Not Reportable Neonat Indirect Bili Not Reportable AST 26 ALT 25 Alkaline Phosphatase 110 Total Protein 6.7 Albumin 3.5 04/05/19 04/05/19 04/05/19 07:27 11:42 16:27 WBC RBC Hgb Hct MCV MCH MCHC RDW Plt Count Lymph % (Auto) [place] % (Auto) Eos % (Auto) Baso % (Auto) Absolute Neuts (auto) Absolute Lymphs (auto) Absolute Monos (auto) Absolute Eos (auto) Absolute Basos (auto) Seg Neutrophils % Sodium Potassium Chloride Carbon Dioxide Anion Gap BUN Creatinine Est GFR ( Amer) Est GFR (MDRD) Non-Af Glucose POC Glucose 125 H 116 H 143 H Calcium Magnesium Total Bilirubin Direct Bilirubin Neonat Total Bilirubin Neonat Direct Bilirubin Neonat Indirect Bili AST ALT Alkaline Phosphatase Total Protein Albumin Chest X-Ray 04/01/19 00:00 IMPRESSION: Small right pleural effusion with right lower lobe infiltrate either atelectasis or pneumonia. Venous Doppler Study 04/01/19 15:44 IMPRESSION: NO EVIDENCE DVT OR SVT IN EITHER LEG. Renal Ultrasound 04/03/19 00:00 IMPRESSION: NORMAL RENAL AND BLADDER ULTRASOUND. IMPRESSION/RECOMMENDATION: 1. Acute on chronic systolic heart failure. The patient has acute left ventricular and right ventricle systolic heart failure. 2. Cardiomyopathy: Severely depressed LV ejection fraction. At present blood pressure is low. The patient is not volume overloaded. Hence would decrease the Lasix to 20 mg p.o. daily. Orders written yesterday for PEMA inhibitor and Coreg have not been given to the patient since there was a mixup with the patient's blood pressure. The patient blood pressure is better now. And the heart rate is also good. Hence will start the patient on a small dose of Coreg and also PEMA inhibitor and increase as tolerated. We will watch the patient's renal function. 3. Severe pulmonary hypertension. 4. HYPOTENSION: The patient has a history of hypertension but the patient's blood pressure is low. The patient has been started on Midodrine 2.5 mg p.o. 3 times daily. Will increase it to 5 mg p.o. 3 times daily. Hopefully this will bring the blood pressure drop. Hopefully this will help continue the patient on PEMA inhibitor and beta-shaggy, and diuretics. 5. Diabetes mellitus: Continue current therapy and Accu-Cheks. 6. Chronic kidney disease: Seems to have stabilized. 7. History of palpitations: At present no arrhythmia seen on the monitor. The patient will be advised to have a LifeVest placed. 8. Chronic back pain secondary to spinal cord injury and history of back surgery in the past. If this continues patient may require pain management so that he avoids nonsteroidal anti-inflammatory agents to deal with this pain. Patient medications reviewed. Medications adjusted. Management plan discussed with attending physician on the case. Medical decision making is of high comp lexity. 40 minutes spent on the patient with more than 50% of time spent direct patient care.
[2019-04-06] MEDS: ZOLPIDEM TARTRATE 5 MG TABLET PO PRN
[2019-04-06] MEDS: PANTOPRAZOLE SODIUM 40 MG TABLET.DR PO SCH (05:22)
[2019-04-06] MEDS: HEPARIN SOD (PORCINE) 5,000 UNIT/ML 1 ML VIAL SUBCUT SCH (05:22)
[2019-04-06] MEDS: LISINOPRIL 5 MG TABLET PO SCH (09:44)
[2019-04-06] MEDS: MIDODRINE HCL 5 MG TABLET PO SCH (09:44)
[2019-04-06] MEDS: CARVEDILOL 6.25 MG TABLET PO SCH (09:45)
[2019-04-06] MEDS: DOCUSATE SODIUM 100 MG CAPSULE PO SCH (09:45)
[2019-04-06] MEDS: FUROSEMIDE 20 MG TABLET PO SCH (09:45)
--- NOTE | 2019-04-06 10:10 | PDOC DISCHARGE SUMMARY ---
General - Admit/Disc Date/PCP Admission Date/Primary Care Provider: 04/01/19 19:34 HUGO TIDWELL MD Discharge Date: 04/06/19 - Discharge Diagnosis (1) Acute congestive heart failure Is this a current diagnosis for this admission?: Yes Summary: Patient be treated with a Lasix infusion for initial therapy. A cardiology consultation with Dr. Breen will be obtained. An echocardiogram will be obtained. Serial cardiac enzymes will be performed. A BNP will be obtained. Daily metabolic profiles will be obtained. 04/02/2019-patient denies any history of congestive heart failure is having this lower leg extremity edema for the last 1-1/2 weeks according to the patient is drinking a lot of juices and plenty of water for the last 2 weeks. We could put him on a fluid restriction 1500 cc/h and discontinue IV Lasix switch to Lasix 40 mg twice a day IV and to check daily weights and if possible to do the input output chart. Plan is to repeat the labs tomorrow and chest x-ray tomorrow. Cardiogram is pending. 04/03/2019-echocardiogram indicates severe cardiomyopathy with EF of less than 25% on Lasix 40 mg 3 times daily on fluid restriction 1200 cc/day edema is imp roving patient requires LifeVest. 04/04/2019-echocardiogram shows severe cardiomyopathy EF of less than 25%. Most likely secondary to chronic hypertension and noncompliant this medications. Presently on Lasix 20 mg p.o. daily, Coreg and lisinopril. Request for LifeVest is approved. 04/05/2019-patient has acute on chronic systolic heart failure. EF is less than 25%. Presently on Coreg 6.5 mg p.o. twice daily, lisinopril 2.5 mg p.o. daily and Lasix 20 mg p.o. daily he is on fluid restriction 1500 cc/day and started on Midodrin 5 mg p.o. 3 times daily today. -patient admitted with acute on chronic systolic heart failure ejection fraction is less than 25%. Presently on Coreg 6.25 mg p.o. twice a day, lisinopril 2.5 mg p.o. twice daily and Lasix 20 mg p.o. daily. He is wearing the LifeVest now. Because of the low blood pressures he was started on Midodrin 2.5 mg p.o. p.o. 3 times daily and it was increased to 5 mg p.o. 3 times daily. Latest blood pressure is 108/70. Stable. Patient is stable enough to go to go home today. (2) JORGE A (acute kidney injury) Is this a current diagnosis for this admission?: Yes Summary: Patient's renal functions be monitored closely with daily metabolic profiles. Daily CBCs and magnesium levels will also be obtained. Consultation with nephrology will also be obtained with Dr. Gillespie. 04/02/2019-serum creatinine today is 1.62 the creatinine in October is 1.28. Consultation with Dr. Gillespie was requested. JORGE A may be secondary to CHF exacerbation. AKA may be contributing to his increased BNP. to arrange for the renal ultrasound today. 04/03/2019-serum creatinine today is 1.69 stable. Nephrology consult was requested. Renal ultrasound was normal. Patient is nonoliguric. JORGE A most likely secondary to CHF exacerbation. 04/04/2019-serum creatinine today is 1.8, renal ultrasound was negative. Nephrology consult was done. JORGE A most likely secondary to CHF exacerbation. Patient is nonoliguric. BNP 7200. 04/05/2019-patient serum creatinine today is 1.54 improved from 1.8. Renal ultrasound was negative. Do not have the baseline creatinine available. Patient is nonoliguric. 04/06/2019-latest serum creatinine is 1.54 improved from 1.8. Renal ultrasound was negative. Nephrology consult was done. Baseline creatinine is not available. Patient is nonoliguric. JORGE A is resolving. Most likely secondary to CHF exacerbation. (3) Diabetes mellitus type 2 in nonobese Is this a current diagnosis for this admission?: Yes Summary: Hemoglobin A1c will be obtained and patient will be continued on his usual diabetic therapy and diet pending results. 04/02/2019-patient's hemoglobin A1c 6.1. Presently on insulin sliding scale before meals and at bedtime on carb diet. Compliance with medication was advised. 04/03/2019-patient's latest blood sugar is 105 stable. On insulin sliding scale. Plan is to continue the present management. 04/04/2019-latest blood sugar is 130 stable on insulin sliding scale. Dietary counseling was provided. 04/05/2019-patient's latest blood sugar is 125 stable. Insulin sliding scale. Hemoglobin A1c 6.1. Plan is to continue present management. 04/06/2019-patient blood sugar today is 99, hemoglobin A1c 6.1. Patient is advised to continue his home medications. (4) Hypertension Is this a current diagnosis for this admission?: Yes Summary: 04/06/2019-patient has history of chronic hypertension but during this admission blood pressures are running on the softer side he was started on Midodrin 5 mg p.o. 3 times daily he is going home on the prescription. (5) Pleural effusion Is this a current diagnosis for this admission?: Yes Summary: 04/02/2019-chest x-ray shows mild right pleural effusion it may be secondary to CHF. We will plan to do the follow-up chest x-rays. 04/04/2019-patient has right pleural effusion most likely secondary to congestive heart failure. Pulse ox today is 100% on 2 L. 04/06/2019-patient came in with right pleural effusion documented by the chest x- ray at the time of admission most likely secondary to CHF. - Additional Information Resuscitation Status: Full Code Discharge Diet: Cardiac, Diabetic Discharge Activity: Activity As Tolerated, Balance Activity w/Rest, Weigh Daily Prescriptions: Carvedilol [Coreg 6.25 mg Tablet] 6.25 mg PO Q12 #60 tablet Furosemide [Lasix 20 mg Tablet] 20 mg PO DAILY #30 tablet Lisinopril [Prinivil 5 mg Tablet] 2.5 mg PO Q12 #30 tablet Midodrine HCl [Proamatine 5 mg Tablet] 5 mg PO TID #30 tablet Home Medications: Oxycodone HCl/Acetaminophen [Percocet 10-325 mg Tablet] 1 tab PO Q8HP PRN 04/01/19 Carvedilol [Coreg 6.25 mg Tablet] 6.25 mg PO Q12 #60 tablet 04/06/19 Furosemide [Lasix 20 mg Tablet] 20 mg PO DAILY #30 tablet 04/06/19 Lisinopril [Prinivil 5 mg Tablet] 2.5 mg PO Q12 #30 tablet 04/06/19 Midodrine HCl [Proamatine 5 mg Tablet] 5 mg PO TID #30 tablet 04/06/19 History of Present Illness History of Present Illness: ALANNA SAHU is a 59 year old male 59 year old male who presented to the emergency room with a 8-day history of edema. Patient admits that 8 days ago he began having increased swelling of his lower extremities which is been gradually spreading up to his waist. The swelling is accompanied by severe orthopnea and the sensation of a constantly present, moderately intense, aching throbbing pressure in both of his lower extremities without radiation. He normally walks with a walker but his legs have been so heavy and swollen that he is not been able to walk and has been wheelchair-bound for the last several days. He was seen by his primary care provider and started on Lasix 1 week ago however his symptoms have continued to worsen rather than improve. He acknowledges accompanying decreased urinary output and dark urine when he does pass urine. He denies prior similar symptoms and has not identified any aggravating or ameliorating factors for his swelling. In the emergency room he was found to have a mildly elevated BUN and creatinine and a negative venous Doppler study of the bilateral lower extremities. Chest x-ray revealed mild cardiomegaly and a small pleural effusion. Patient was subsequently admitted to the hospital for further evaluation treatment. Hospital Course Hospital Course: 04/02/[id number]-pvoq-old male admitted with bilateral lower extremity edema BNP at the time of admission is more than 9000 chest x-ray shows small right pleural effusion and questionable right lower lobe infiltrate. Patient says he is feeling much better. He was on Lasix drip. He is peeing a lot. But there is a concern about a penile implant so the Matias's catheter was not placed but according to the patient he has a bladder bladder stimulator do not have panel stimulator. But we could hold off on placing Matias's catheter at this moment. No acute events since admission. Afebrile. Patient states he is breathing better today. 04/03/2019-no acute events in the last 24 hours. Patient is afebrile. Echocardiogram was done found to have a severe cardiomyopathy with EF of less than 25%. Patient is presently on Lasix 25 mg P.o. 3 times daily. Nephrology consult was requested. Cardiology on board probably he need a LifeVest. 04/04/[id number]-blzf-old male admitted with bilateral lower extremity pedal edema found to have a severe cardiomyopathy EF of less than 25%. Request for a LifeVest is approved. Patient is asymptomatic. Blood pressures are on the softer side it is 100/60 today. Present on Coreg, lisinopril and Lasix 20 mg p.o. daily. Pedal edema is almost resolved. 04/05/2019-blood pressures are persistently low. Latest blood pressure is 96/58. Presently on Coreg 6.25 mg p.o. twice a day lisinopril 2.5 mg p.o. daily, Lasix 20 mg p.o. daily. To start the patient on Midodrin 5 mg p.o. 3 times daily to improve the blood pressure. Patient LifeVest is improved on once the blood pressures are stable he can go home with a LifeVest. 04/06/2019-latest blood pressure today is 108/86. He was started on Midodrin 5 mg p.o. 3 times daily he is going to go home on that medication. No acute events in the last 24 hours. Afebrile. He is wearing the LifeVest now. Patient was strongly advised to follow-up with Dr. Breen as an outpatient. Physical Exam Vital Signs: Temp Pulse Resp BP Pulse Ox 97.9 F 89 18 96/68 L 95 04/06/19 07:34 04/06/19 07:34 04/06/19 07:34 04/06/19 07:34 04/06/19 09:04 Intake & Output 04/05/19 04/06/19 04/07/19 06:59 06:59 06:59 Intake Total 1242 850 Output Total 100 3 Balance 1142 847 Weight 80 kg 78.4 kg General appearance: PRESENT: no acute distress, cooperative Head exam: PRESENT: atraumatic Eye exam: PRESENT: PERRLA Mouth exam: PRESENT: dry mucosa Teeth exam: PRESENT: poor dentation Neck exam: ABSENT: carotid bruit, JVD, lymphadenopathy, thyromegaly Respiratory exam: PRESENT: decreased breath sounds Cardiovascular exam: PRESENT: RRR. ABSENT: diastolic murmur, rubs, systolic murmur GI/Abdominal exam: PRESENT: normal bowel sounds, soft. ABSENT: distended, guarding, mass, organolmegaly, rebound, tenderness Rectal exam: PRESENT: deferred Extremities exam: PRESENT: full ROM. ABSENT: calf tenderness, clubbing, pedal edema Neurological exam: PRESENT: alert, awake, oriented to person, oriented to place, oriented to time, oriented to situation, CN II-XII grossly intact. ABSENT: motor sensory deficit Psychiatric exam: PRESENT: appropriate affect, normal mood. ABSENT: homicidal ideation, suicidal ideation Results Laboratory Results: 04/05/19 06:28 04/05/19 06:28 04/01/19 04/01/19 04/01/19 14:30 14:30 20:49 Creatine Kinase 287 H CK-MB (CK-2) 3.56 3.20 Troponin I 0.029 NT-Pro-B Natriuret Pep 9060 H 04/01/19 04/02/19 04/02/19 20:49 02:57 02:57 Creatine Kinase 284 H 290 H CK-MB (CK-2) 2.65 Troponin I 0.035 NT-Pro-B Natriuret Pep 04/02/19 04/02/19 04/03/19 10:13 10:13 02:55 Creatine Kinase 266 H CK-MB (CK-2) 2.40 Troponin I 0.035 NT-Pro-B Natriuret Pep 8350 H 04/04/19 04:30 Creatine Kinase CK-MB (CK-2) Troponin I NT-Pro-B Natriuret Pep 7200 H Impressions: Chest X-Ray 04/01/19 00:00 IMPRESSION: Small right pleural effusion with right lower lobe infiltrate either atelectasis or pneumonia. Venous Doppler Study 04/01/19 15:44 IMPRESSION: NO EVIDENCE DVT OR SVT IN EITHER LEG. Renal Ultrasound 04/03/19 00:00 IMPRESSION: NORMAL RENAL AND BLADDER ULTRASOUND. Qualifiers - * PATIENT BEING DISCHARGED WITH ANY OF THE FOLLOWING DIAGNOSIS: No VTE patient discharged on overlapping Therapy?: No Acute Heart Failure - Is this a Heart Failure Patient?: Yes Documentation of LVEF assessment?: Yes LVEF < 40%?: Yes-if yes answer questions a through e a) Discharged on ACEI?: Yes b) Discharges on ARB?: No-document contraindications - dischared on lisonopril c) Discharged on ARNI?: No-Document Contraindications Reason(s) not discharged on ARNI: ACEI use within the prior 36 hours d) Discharged on evidence-based Beta shaggy(carvedilol, sustained release metoprolol succinate, or bisoprolol)?: Yes e) For LVEF <35%, discharged on Aldosterone antagonist?: No-document cont raincations - hypotension
[2019-04-06 11:30] VITALS: BP 94/66
== END 2019-04-06 12:00 | disposition home or self-care (01) | DRG 291 ==
LOC: ER 13:38 → OBSVTOIN 19:34 → EH 19:34 → 5 20:25 → 3W 22:30
PROVIDERS: ADMIT Emergency Medicine; ATTEND Emergency Medicine
DX: I13.0 Hypertensive heart and chronic kidney disease with heart failure and stage 1 through stage 4 chronic kidney disease, or unspecified chronic kidney disease (principal); I50.23 Acute on chronic systolic (congestive) heart failure; N17.9 Acute kidney failure, unspecified; I27.20 Pulmonary hypertension, unspecified; I42.9 Cardiomyopathy, unspecified; E78.00 Pure hypercholesterolemia, unspecified; N20.0 Calculus of kidney; D64.9 Anemia, unspecified; N18.9 Chronic kidney disease, unspecified; E11.22 Type 2 diabetes mellitus with diabetic chronic kidney disease; F17.210 Nicotine dependence, cigarettes, uncomplicated; Z96.0 Presence of urogenital implants
CPT/HCPCS: 36415; 71045; 76770; 80048; 80053; 80061; 81001; 82550; 82553; 82962; 83036; 83690; 83735; 83880; 84439; 84443; 84481; 84484; 85025; 85027; 85610; 85730; 93005; 93010; 93306; 93970; 96374; 99285; J1644; J1940; J3490; J7050